=== PATIENT | female | born 1955 | race Caucasian/White ===

== ENCOUNTER → 2016-07-06 | Outpatient (REF) | payer OTHER ==
[2016-07-06 12:34] LABS: MEAN CORPUSCULAR HEMOGLOBIN 30.6 pg (27.0-33.0); MEAN CORPUSCULAR HGB CONC 32.7 g/dl (32.0-36.5); MEAN CORPUSCULAR VOLUME 93.5 fl (80.0-96.0); RED CELL DISTRIBUTION WIDTH 13.4 % (11.5-14.5); WHITE BLOOD COUNT 9.9 K/mm3 (4.0-10.0)
[2016-07-06 12:49] LABS: ALBUMIN 4.4 GM/DL (3.2-5.2); ALBUMIN/GLOBULIN RATIO 1.29 (1.00-1.93); ALKALINE PHOSPHATASE 97 U/L (45-117); ALT/SGPT 46 U/L (12-78); ANION GAP 9 MEQ/L (8-16); AST/SGOT 20 U/L (15-37); BILIRUBIN,TOTAL 0.4 MG/DL (0.2-1.0); BLOOD UREA NITROGEN 18 MG/DL (7-18); CALCIUM LEVEL 10.1 MG/DL (8.8-10.2); CARBON DIOXIDE LEVEL 31 MEQ/L (21-32); CHLORIDE LEVEL 101 MEQ/L (98-107); CHOLESTEROL LEVEL 189 MG/DL (<200); CREATININE FOR GFR 0.82 MG/DL (0.55-1.02); FREE T4 1.24 NG/DL (0.76-1.46); GLOMERULAR FILTRATION RATE > 60.0 (>45); GLUCOSE, FASTING 104 MG/DL (80-110); POTASSIUM SERUM 3.9 MEQ/L (3.5-5.1); SODIUM LEVEL 141 MEQ/L (136-145); TOTAL PROTEIN 7.8 GM/DL (6.4-8.2); TRIGLYCERIDES LEVEL 150 MG/DL (<150)
== END ==
LOC: M SFHCADAM 08:48
PROVIDERS: ATTEND Physician Assistant
DX: I25.10 Atherosclerotic heart disease of native coronary artery without angina pectoris (principal); I10 Essential (primary) hypertension; E78.4 Other hyperlipidemia; E55.9 Vitamin D deficiency, unspecified

== ENCOUNTER → 2016-07-20 | Outpatient (CLI) | payer BC, OTHER ==
--- NOTE | 2016-07-20 16:11 | REP ---
MRI LUMBAR SPINE WITHOUT CONTRAST: HISTORY: Back pain. Decreased signal intensity on T2-weighted images is present in the L1-2 through L4-5 intervertebral discs. The discs are decreased in height. These findings are consistent with disc degeneration. A diffuse disc bulge and small central disc extrusion are present at the L1-2 level. There is superior migration of disc material. There is minimal compression of the thecal sac. The L1 nerves exit the neural foramina without compression. A diffuse disc bulge is present at the L2-3 level. There is minimal compression of the thecal sac. There is hypertrophy of the ligamenta flava and posterior articulating facets. The L2 nerves exit the neural foramina without compression. A diffuse disc bulge is present at the L3-4 level. There is hypertrophy of the ligamenta flava and posterior articulating facets. These findings produce mild central canal stenosis. The L3 nerves exit the neural foramina without compression. A diffuse disc bulge is present at the L4-5 level. There is hypertrophy of the ligamenta flava and posterior articulating facets. These findings produce moderate central canal stenosis. The L4 nerves exit the neural foramina without compression. A diffuse disc bulge is present at the L5-S1 level. This abuts the S1 nerves. There is no thecal sac compression. There is hypertrophy of the posterior articulating facets. The L5 nerves exit the neural foramina without compression. The conus medullaris is normal in appearance terminating at the level of the L1 intervertebral disc. Normal signal intensity is present in the lumbar vertebral bodies. IMPRESSION: 1. Diffuse disc bulge and small central disc extrusion at the L1-2 level with minimal thecal sac compression. 2. Diffuse disc bulge at the L2-3 level with minimal thecal sac compression. 3. Mild central canal stenosis at the L3-4 level secondary to disc bulge, ligamentous and facet hypertrophy. 4. Moderate central canal stenosis at the L4-5 level secondary to disc bulge, ligamentous and facet hypertrophy. 5. Diffuse disc bulge at the L5-S1 level. This abuts the S1 nerves. Signed by Greyson Morales MD 07/20/2016 04:16 P
== END ==
LOC: M RAD 14:31
PROVIDERS: ATTEND Orthopaedic Surgery
DX: M54.5 Low back pain (principal); M48.06 Spinal stenosis, lumbar region

== ENCOUNTER → 2016-09-11 | Outpatient (CLI) | payer BC, OTHER ==
--- NOTE | 2016-09-11 12:15 | REP ---
Radionuclide bone scan: Comparison is a lumbar spine MRI dated 07/20/2016. Whole-body scanning is performed. Additionally lateral views of the calvarium are performed and oblique views of the ribs and pelvis are performed. There is no unusual calvarial uptake. There is no unusual uptake in the cervical spine or thoracic spine. There is focal increased uptake in the left pedicle of the fifth lumbar vertebra. Uptake in the lumbar spine is otherwise unremarkable. There is a degenerative pattern of uptake in the shoulders. There is no unusual uptake in the pelvis, hips or lower extremities. Impression: Focal increased uptake in the left pedicle of the L5 vertebra. Degenerative pattern of uptake in the shoulders. The study is performed with 20.1 mCi of technetium 99 labeled MDP. Signed by Jp Rosenthal MD 09/11/2016 12:06 P
== END ==
LOC: M RAD 09:13
PROVIDERS: ATTEND Orthopaedic Surgery
DX: M54.2 Cervicalgia (principal)

== ENCOUNTER → 2017-04-02 | Outpatient (CLI) | payer BC, OTHER ==
--- NOTE | 2017-04-02 10:50 | REP ---
Low-dose lung screening chest CT: The studies performed without IV contrast images are presented at lung windowing. There are no nodules or masses. There are no infiltrates or effusions. Impression: Category one low-dose lung screening CT. Probability of malignancy is less than 1%. Continue annual screening low-dose chest CT. Signed by Jp Rosenthal MD 04/02/2017 10:42 A
== END ==
LOC: M RAD 09:17
PROVIDERS: ATTEND Physician Assistant
DX: F17.200 Nicotine dependence, unspecified, uncomplicated (principal); Z12.2 Encounter for screening for malignant neoplasm of respiratory organs

== ENCOUNTER → 2018-03-14 | Outpatient (REF) | payer OTHER ==
[2018-03-14 12:42] LABS: HEMATOCRIT 45.2 % (36.0-47.0); MEAN CORPUSCULAR HEMOGLOBIN 30.1 pg (27.0-33.0); MEAN CORPUSCULAR HGB CONC 33.2 g/dl (32.0-36.5); MEAN CORPUSCULAR VOLUME 90.8 fl (80.0-96.0); PLATELET COUNT, AUTOMATED 277 10^3/uL (150-450); RED BLOOD COUNT 4.98 10^6/uL (4.00-5.40); RED CELL DISTRIBUTION WIDTH 14.1 % (11.5-14.5); WHITE BLOOD COUNT 8.1 10^3/uL (4.0-10.0)
[2018-03-14 13:02] LABS: ALBUMIN/GLOBULIN RATIO 1.14 (1.00-1.93); ALKALINE PHOSPHATASE 122 U/L (45-117); ALT/SGPT 46 U/L (12-78); ANION GAP 10 MEQ/L (8-16); AST/SGOT 22 U/L (7-37); BILIRUBIN,TOTAL 0.4 MG/DL (0.2-1.0); BLOOD UREA NITROGEN 14 MG/DL (7-18); CALCIUM LEVEL 9.9 MG/DL (8.8-10.2); CARBON DIOXIDE LEVEL 26 MEQ/L (21-32); CHLORIDE LEVEL 103 MEQ/L (98-107); CHOLESTEROL LEVEL 170 MG/DL (<200); CREATININE FOR GFR 0.92 MG/DL (0.55-1.30); FREE T4 1.24 NG/DL (0.76-1.46); GLOMERULAR FILTRATION RATE > 60.0 (>45); GLUCOSE, FASTING 108 MG/DL (70-100); HDL CHOLESTEROL 34 MG/DL (>40); LDL CHOLESTEROL 91 MG/DL (<100); NON-HDL-C 136 MG/DL; POTASSIUM SERUM 3.7 MEQ/L (3.5-5.1); SODIUM LEVEL 139 MEQ/L (136-145); TOTAL PROTEIN 7.5 GM/DL (6.4-8.2); TRIGLYCERIDES LEVEL 226 MG/DL (<150)
[2018-03-14 15:01] LABS: FOLATE 13.4 NG/ML; TOTAL 25(OH) VITAMIN D 76.3 NG/ML (30.0-100.0)
== END ==
LOC: M SFHCADAM 08:27
DX: I25.10 Atherosclerotic heart disease of native coronary artery without angina pectoris (principal); I10 Essential (primary) hypertension; E78.49 Other hyperlipidemia; M54.42 Lumbago with sciatica, left side

== ENCOUNTER → 2018-09-24 | Outpatient (REF) | payer OTHER ==
[2018-09-24 12:32] LABS: HEMATOCRIT 44.6 % (36.0-47.0); HEMOGLOBIN 14.8 g/dl (12.0-15.5); MEAN CORPUSCULAR HEMOGLOBIN 30.1 pg (27.0-33.0); MEAN CORPUSCULAR HGB CONC 33.2 g/dl (32.0-36.5); MEAN CORPUSCULAR VOLUME 90.7 fl (80.0-96.0); PLATELET COUNT, AUTOMATED 270 10^3/uL (150-450); RED BLOOD COUNT 4.92 10^6/uL (4.00-5.40)
[2018-09-24 13:04] LABS: ALBUMIN 4.3 GM/DL (3.2-5.2); ALT/SGPT 24 U/L (12-78); BILIRUBIN,TOTAL 0.6 MG/DL (0.2-1.0); BLOOD UREA NITROGEN 17 MG/DL (7-18); CARBON DIOXIDE LEVEL 30 MEQ/L (21-32); CHLORIDE LEVEL 101 MEQ/L (98-107); CREATININE FOR GFR 0.87 MG/DL (0.55-1.30); GLOMERULAR FILTRATION RATE > 60.0 (>45); GLUCOSE, FASTING 110 MG/DL (70-100); POTASSIUM SERUM 3.6 MEQ/L (3.5-5.1); SODIUM LEVEL 138 MEQ/L (136-145); TOTAL PROTEIN 7.6 GM/DL (6.4-8.2)
== END ==
LOC: M SFHCADAM 08:29
PROVIDERS: ATTEND Physician Assistant
DX: Z12.11 Encounter for screening for malignant neoplasm of colon (principal); R00.2 Palpitations

== ENCOUNTER → 2019-08-18 | Outpatient (REF) | payer MEDICARE, BC, OTHER ==
[2019-08-18 13:15] LABS: HEMATOCRIT 39.7 % (36.0-47.0); HEMOGLOBIN 12.6 g/dl (12.0-15.5); MEAN CORPUSCULAR HEMOGLOBIN 28.3 pg (27.0-33.0); MEAN CORPUSCULAR HGB CONC 31.7 g/dl (32.0-36.5); MEAN CORPUSCULAR VOLUME 89.2 fl (80.0-96.0); PLATELET COUNT, AUTOMATED 284 10^3/uL (150-450); RED BLOOD COUNT 4.45 10^6/uL (4.00-5.40)
[2019-08-18 13:35] LABS: ALBUMIN 3.9 GM/DL (3.2-5.2); ALT/SGPT 27 U/L (12-78); BILIRUBIN,TOTAL 0.5 MG/DL (0.2-1.0); BLOOD UREA NITROGEN 14 MG/DL (7-18); CALCIUM LEVEL 9.7 MG/DL (8.8-10.2); CARBON DIOXIDE LEVEL 30 MEQ/L (21-32); CHLORIDE LEVEL 104 MEQ/L (98-107); CHOLESTEROL LEVEL 140 MG/DL (<200); CHOLESTEROL RISK RATIO 2.641 (<5); CREATININE FOR GFR 0.73 MG/DL (0.55-1.30); FREE T4 1.21 NG/DL (0.76-1.46); GLOMERULAR FILTRATION RATE > 60.0 (>45); GLUCOSE, FASTING 92 MG/DL (70-100); HDL CHOLESTEROL 53 MG/DL (>40); LDL CHOLESTEROL 71 MG/DL (<100); NON-HDL-C 87 MG/DL; POTASSIUM SERUM 4.2 MEQ/L (3.5-5.1); SODIUM LEVEL 138 MEQ/L (136-145); TOTAL PROTEIN 7.4 GM/DL (6.4-8.2); TRIGLYCERIDES LEVEL 80 MG/DL (<150)
== END ==
LOC: M SFHCADAM 10:01
PROVIDERS: ATTEND Physician Assistant
DX: I25.10 Atherosclerotic heart disease of native coronary artery without angina pectoris (principal); I10 Essential (primary) hypertension; F17.210 Nicotine dependence, cigarettes, uncomplicated; Z23 Encounter for immunization
CPT/HCPCS: 80053; 80061; 84439; 84443; 85027; 90670; 90682; 99406; G0008; G0009; G0402; G0463

== ENCOUNTER → 2020-05-18 | Outpatient (CLI) | payer MEDICARE, BC, OTHER ==
--- NOTE | 2020-05-18 14:51 | REP ---
INDICATION: NICOTINE DEPEND. COMPARISON: Comparison screening low-dose chest CT April 02, 2017.. TECHNIQUE: Contiguous 3 mm lung window only axial images. FINDINGS: There are calcifications in the region of the aortic valve. Question aortic sclerosis. Some mitral annular calcifications also noted. The ascending aorta measures 4.4 cm in AP dimension at the level of the right main pulmonary artery. There is no evidence of pulmonary nodule or mass lesion. There are fibrotic changes again noted in the right middle lobe and lingula at the bases. No infiltrate is seen. Some minimal linear fibrotic changes are seen in the lower lobes. IMPRESSION: Stable lung RADS category 1 findings. Repeat screening low-dose chest CT suggested in 1 year. Incidental note is made of calcifications in the area of the aortic valve. Rule out aortic sclerosis or stenoses. The ascending aorta is somewhat dilated as well as above. <Electronically signed by Asad Newsome > 05/18/20 [id number]
== END ==
LOC: M RAD 10:13
PROVIDERS: ATTEND Physician Assistant
DX: F17.210 Nicotine dependence, cigarettes, uncomplicated (principal)

== ENCOUNTER → 2020-09-15 | Outpatient (REF) | payer MEDICARE, OTHER ==
[~2020-09-15] MED LIST: AMLO25TA PO; ASPI81CH33 PO; BUPR150T12 PO; CHLO25TA PO; FAMO20TA PO; FAMO40TA3 PO; FERR325T3 PO; KLOR20TA42 PO; LOSA100T50 PO; ROSU40TA4 PO; [UNRECOGNIZED DRUG - CODE] PO
[2020-09-15 17:33] LABS: BASO # 0.1 10^3/uL (0.0-0.2); BASO % 0.8 % (0.0-1.0); EOS # 0.2 10^3/uL (0.0-0.5); EOS % 1.3 % (0.0-3.0); HEMATOCRIT 24.9 % (36.0-47.0); HEMOGLOBIN 7.4 g/dl (12.0-15.5); LYMPH # 2.2 10^3/uL (1.5-5.0); LYMPH % 19.4 % (24.0-44.0); MEAN CORPUSCULAR HEMOGLOBIN 25.2 pg (27.0-33.0); MEAN CORPUSCULAR HGB CONC 29.7 g/dl (32.0-36.5); MEAN CORPUSCULAR VOLUME 84.7 fl (80.0-96.0); MONO # 0.6 10^3/uL (0.0-0.8); MONO % 5.6 % (2.0-8.0); NEUTROPHILS # 8.1 10^3/uL (1.5-8.5); NEUTROPHILS % 72.5 % (36.0-66.0); PLATELET COUNT, AUTOMATED 315 10^3/uL (150-450); RED BLOOD COUNT 2.94 10^6/uL (4.00-5.40); WHITE BLOOD COUNT 11.1 10^3/uL (4.0-10.0)
[2020-09-15 17:40] LABS: ALBUMIN 4.1 GM/DL (3.2-5.2); ALT/SGPT 23 U/L (12-78); BILIRUBIN,TOTAL 0.5 MG/DL (0.2-1.0); BLOOD UREA NITROGEN 24 MG/DL (7-18); CALCIUM LEVEL 9.6 MG/DL (8.8-10.2); CARBON DIOXIDE LEVEL 29 MEQ/L (21-32); CHLORIDE LEVEL 98 MEQ/L (98-107); CREATININE FOR GFR 0.86 MG/DL (0.55-1.30); FOLATE 9.5 NG/ML; FREE T4 1.17 NG/DL (0.76-1.46); GLOMERULAR FILTRATION RATE > 60.0 (>45); GLUCOSE, FASTING 109 MG/DL (70-100); MAGNESIUM LEVEL 2.3 MG/DL (1.8-2.4); POTASSIUM SERUM 3.1 MEQ/L (3.5-5.1); SODIUM LEVEL 136 MEQ/L (136-145); TOTAL 25(OH) VITAMIN D 79.4 NG/ML (30.0-100.0); TOTAL PROTEIN 7.5 GM/DL (6.4-8.2); VITAMIN B12 LEVEL 399 PG/ML
== END ==
LOC: M SFHCADAM 12:51
PROVIDERS: ATTEND Physician Assistant
DX: M54.2 Cervicalgia (principal); M54.16 Radiculopathy, lumbar region; R42 Dizziness and giddiness; I73.9 Peripheral vascular disease, unspecified; I10 Essential (primary) hypertension; I25.10 Atherosclerotic heart disease of native coronary artery without angina pectoris; Z79.899 Other long term (current) drug therapy
CPT/HCPCS: 80053; 82306; 82607; 82746; 83735; 84439; 84443; 85025; G0463

== ENCOUNTER → 2020-09-15 | Outpatient (REF) | payer MEDICARE, OTHER ==
[2020-09-15 18:02] LABS: BLOOD UREA NITROGEN 25 MG/DL (7-18); CALCIUM LEVEL 9.4 MG/DL (8.8-10.2); CARBON DIOXIDE LEVEL 30 MEQ/L (21-32); CHLORIDE LEVEL 99 MEQ/L (98-107); CREATININE FOR GFR 0.83 MG/DL (0.55-1.30); FREE T4 1.14 NG/DL (0.76-1.46); GLOMERULAR FILTRATION RATE > 60.0 (>45); GLUCOSE, FASTING 109 MG/DL (70-100); MAGNESIUM LEVEL 2.2 MG/DL (1.8-2.4); POTASSIUM SERUM 3.1 MEQ/L (3.5-5.1); SODIUM LEVEL 136 MEQ/L (136-145)
== END ==
LOC: M LABDRWAD 16:27
PROVIDERS: ATTEND Physician Assistant
DX: R00.2 Palpitations (principal); I10 Essential (primary) hypertension

== ENCOUNTER 2020-09-20 17:14 | Inpatient (IN) | payer MEDICARE, BC, OTHER ==
[2020-09-20] VITALS (10 sets, daily range): BP systolic 78–115; BP diastolic 48–67; O2SAT 98
[~2020-09-20] VITALS: Ht 162.6 cm; Wt 87.3 kg
[2020-09-20] MEDS ORDERED: LOSA100T50 PO (17:26)
[2020-09-20] MEDS ORDERED: CHLO25TA PO (17:26)
[2020-09-20] MEDS ORDERED: ASPI81CH33 PO (17:26)
[2020-09-20] MEDS ORDERED: ROSU40TA4 PO (17:26)
[2020-09-20] MEDS ORDERED: FAMO20TA PO (17:26)
[2020-09-20] MEDS ORDERED: AMLO25TA PO (17:26)
[2020-09-20] MEDS ORDERED: BUPR150T12 PO (17:26)
[2020-09-20] MEDS ORDERED: KLOR20TA42 PO (17:26)
[2020-09-20 18:04] LABS: MEAN CORPUSCULAR HEMOGLOBIN 24.8 pg (27.0-33.0); MEAN CORPUSCULAR VOLUME 82.7 fl (80.0-96.0); PLATELET COUNT, AUTOMATED 315 10^3/uL (150-450); RED BLOOD COUNT 2.66 10^6/uL (4.00-5.40); WHITE BLOOD COUNT 13.1 10^3/uL (4.0-10.0)
[2020-09-20 18:22] LABS: ALBUMIN 3.8 GM/DL (3.2-5.2); ALT/SGPT 21 U/L (12-78); BILIRUBIN,TOTAL 0.5 MG/DL (0.2-1.0); BLOOD UREA NITROGEN 21 MG/DL (7-18); CALCIUM LEVEL 9.4 MG/DL (8.8-10.2); CARBON DIOXIDE LEVEL 27 MEQ/L (21-32); CHLORIDE LEVEL 100 MEQ/L (98-107); CREATININE FOR GFR 0.85 MG/DL (0.55-1.30); FERRITIN 5 NG/ML (8-252); GLOMERULAR FILTRATION RATE > 60.0 (>45); GLUCOSE, FASTING 102 MG/DL (70-100); IRON (FE) 22 UG/DL (50-170); PERCENT SATURATION 4.2 % (13.2-45.0); POTASSIUM SERUM 4.2 MEQ/L (3.5-5.1); SODIUM LEVEL 134 MEQ/L (136-145); TOTAL IRON BINDING CAPACITY 522 UG/DL (250-450); TOTAL PROTEIN 7.3 GM/DL (6.4-8.2)
[2020-09-20 18:24] LABS: HEMOGLOBIN 6.6 g/dl (12.0-15.5)
[2020-09-20] MEDS ORDERED: NS 500 ML IV ONE (19:10)
[2020-09-20] MEDS ORDERED: [UNRECOGNIZED DRUG - CODE] PO (20:24)
[2020-09-20] MEDS ORDERED: FAMO40TA3 PO (20:24)
[2020-09-20] MEDS ORDERED: IRON SUCROSE 100MG 5ML VIAL (J1756 PER 1MG) IV SCH (20:30)
[2020-09-20] MEDS ORDERED: ONDANSETRON 4MG/2ML VIAL IV PRN (20:30)
--- NOTE | 2020-09-20 20:33 | IPNPDOC ---
Text Note Date of Service The patient was seen on 09/20/20. VS,Bobbone, I+O VS, Fishbone, I+O Laboratory Tests 09/20/20 17:42 Vital Signs Date Time Temp Pulse Resp B/P (MAP) Pulse Ox O2 Delivery O2 Flow Rate FiO2 09/20/20 19:00 90 20 83/55 (64) 97 Room Air 09/20/20 17:15 97.7 SLADE CH MD Sep 20, 2020 20:33
--- NOTE | 2020-09-20 20:49 | REPVR ---
PROCEDURE INFORMATION: Exam: XR Chest Exam date and time: 09/20/2020 8:26 PM Age: 64 years old Clinical indication: Shortness of breath; Additional info: Anemia/sob TECHNIQUE: Imaging protocol: XR of the chest. Views: 1 view. COMPARISON: LOW DOSE LUNG SCREENING CT 05/18/2020 10:43 AM FINDINGS: Lungs: Platelike atelectasis left lower lobe. Remaining lungs are clear. Pleural spaces: Unremarkable. No pleural effusion. No pneumothorax. Heart/Mediastinum: Unremarkable. No cardiomegaly. Bones/joints: Unremarkable. IMPRESSION: No acute findings. Electronically signed by: Earl Zimmerman On 09/20/2020 20:49:54 PM
[2020-09-20 20:54] LABS: TROPONIN I 0.06 NG/ML (< 0.10)
--- NOTE | 2020-09-20 21:23 | HPEPDOC ---
[facility] Medical History & Physical Date of Admission Sep 20, 2020 Date of Service: Sep 20, 2020 Primary Care Physician: RAMEZ PALACIOS PA-C Other Provider ROMAN Mckenzie cardiology (through Dr. Zelaya) - - as outpatient Attending Physician: SLADE CH MD History and Physical CHIEF COMPLAINT: shortness of breath HISTORY OF PRESENT ILLNESS: is a pleasant 64yo female who presented to the [facility] ED with chief complaints of shortness of breath with exertion and generalized weakness. Her symptoms actually began 2 months ago after she received the first moderna vaccination on July 18. The next day, July 19, she developed palpitations and dizziness which would occur 2-3 times a day and worsen whenever she stood up or moved. On July 25, she began to have left upper extremity swelling with redness that she describes as "Covid arm." She was seen by her cardiology PA on 07/27 and had an EKG which was normal. Around this time, her dizziness and palpitations sxs began to wane somewhat. She received her second Covid vaccine on 08/15, and subsequently developed fever, chills and muscle aches beginning the next day. At this point, her dizziness and palpitations returned and she began to also have associated shortness of breath with exertion. She has not had any palpitations over the past 5 days, but continues to experience dyspnea on exertion and has had progressively worsening weakness. She was seen by her primary care provider last (09/15), and which point a CBC was ordered. 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 She was started on 20 mEq twice a day of oral potassium chloride. She was then called today by her PCP to inform her that her hemoglobin from last week's lab was 7.4 and to present to the emergency department. REVIEW OF SYSTEMS: CONSTITUTIONAL: Reports increasing generalized weakness over the past one2 week s. Denies fever, chills, night sweats, or unintentional change in weight. CARDIOVASCULAR: Has not experience any heart palpitations in the last 6 days. Denies any chest pain at this time, chest pressure. RESPIRATORY: Reports shortness of breath on exertion that has been present for the past month. She also reports some orthopnea. Denies blurry chest pain or sniffing and cough. GASTROINTESTINAL: Denies abdominal pain, nausea, vomiting, diarrhea, constipation, or blood in stool. GENITOURINARY: Denies dysuria, hematuria. NEUROLOGICAL: Reports dizziness that was consistent a month ago but has now become more intermittent and associated with movement. ENDOCRINE: Reports cold intolerance HEMATOLOGIC: Denies easy bleeding or bruising LYMPHATIC: Denies any new lumps or bumps PAST MEDICAL/SURGICAL HISTORY: Coronary artery disease s/p inferior wall TX at 48 years old (November 2003) with PCI for 95% Rt coronary artery stenosis s/p CAT (Dr. 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 Kerr of pain management with initial visit scheduled for 09/21/20); this was complicated by a 2004 fall Atherosclerosis; described as prominent abdominal aorta atherosclerosis per ou tpatient records Aortic stenosis, moderate (per 11/2018 echo) Left subclavian steal syndrome, per Neck MRA 2013 Vitamin D deficiency Migraine headaches Exploratory laparotomy for endometriosis, 1992 PCI with drug-eluting stent placement due to 95% stenosis of right carotid artery, November 2003 SOCIAL HISTORY: Active smoker, 25.5 pack year hx. Patient is and lives in [place], [place] with her , Rogelio. She has 6 biological children and 4 stepchildren. She is retired and formerly worked for a [employer]. She is an active smoker, having smoked cigarettes since the age of 14, averaging one half pack per day; equates to 25.5 pack-year history She consumes alcohol on a very rare, and social basis (i.e., occasional glass of wine, beer, liquor once every few months) She denies any current or former illicit/IV drug use. FAMILY HISTORY: Father: at 72 years old; [place] at 50 years old, Diabetes Mother: Living as of one year ago (currently 8889 yo); Hypertension ALLERGIES: Please see below. HOME MEDICATIONS: Please see below. PHYSICAL EXAMINATION: VITAL SIGNS: Please see below. GENERAL APPEARANCE: Pleasant , moderately obese pale-appearing female lying upright in bed. Appears slightly older than stated age., Somewhat anxious, at times during exam. Alert and oriented 3. Accompanied by her . Actively undergoing blood transfusion. HEENT: Facial pallor. Normocephalic, atraumatic. Noninjected, anicteric sclera. Mild conjunctival pallor. PERRLA. ORAL CAVITY: Upper and lower dentures in place. MMM with no appreciated for initial erythema or exudate. NECK: Supple, wide neck. No lymphadenopathy appreciated. Trachea midline. CARDIOVASCULAR: Borderline tachycardic, regular rhythm. 2/6 systolic murmur appreciated most at right 2nd intercostal space. Cap refill 23s. LUNGS: Mildly decreased tidal volume bilaterally with bibasilar mild inspiratory crackles. Symmetric chest expansion. Breathing room air. Speaking full sentences. ABDOMEN: Soft, nontender, nondistended. Obese. Normoactive bowel sounds throughout. No hepatosplenomegaly appreciated, yet accuracy limited by habitus. No rigidity. EXTREMITIES: Fainter radial pulses bilaterally. NEUROLOGICAL: Alert and oriented 3. No focal deficits appreciated. Nondistended speech. PSYCHIATRIC: Anxious appearing at times during the exam, otherwise, pleasant mood and affect appears appropriate. LABORATORY DATA: Please see below. IMAGING: Portable/1-view Chest Xray, 09/20/20-IMPRESSION: No acute findings. MICROBIOLOGY: Please see below. ASSESSMENT & PLAN: is a 64 yr old w a PMHx CAD w/ prior TX and s/p PCI and CAT complicated by NSVT/hypotension/bradycardia, moderate aortic stenosis, htn, hld, atherosclerosis, and active 25+ pack-yr smoker, who presented to the [facility] with the chief complaints of shortness of breath with exertion and generalized weakness and will be admitted for management of symptomatic anemia. #Symptomatic iron deficiency anemia -09/15/20 outpatient Hgb 7.4, with Hgb 6.4/Hct 22 in ED today upon presentation -due to CAD hx, threshold to transfuse is Hgb < 8; type and screen ordered and consent for blood obtained; 1 unit PRBCs ordered and transfused in ED w/ another 3 units to follow -patient has never had a colonoscopy nor egd performed per pt and upon review of [facility] records -stool occult ordered -Patient denied any recent blood in the stool or hematemesis; she is post- menopausal and denied any recent AUB. -Patient has no dietary habits that would put her at risk of being Fe-deficient -Fe panel ordered in ED: sFe 22, TIBC 522, Ferritin 5, Transferrin sat % 4.2 -Recommend pursuing colonoscopy as part of work-up. Spoke to patient about like ly scope and she expressed trepidation re bowel prep. Collaboratively discussed the medical benefits and information a scope would offer and she seemed in agreement to pursue. -fall risk precautions & assisted ambulation only orders -IV protonix and zofran -orthostatic vitals ordered #History of hypertension -Patient is consistently been hypotensive since ED presentation and through admission -home anti-hypertensive medications not continued initially on admission in the setting of her hypotension -She received 1 unit of PRBCs in the ED, with a plan for 3 more to be infused; her pressures improved slightly as she was completing the first unit and moving into the second. #CAD w/ h/o [place] s/p PCI and CAT -Home qd 81 aspirin not continued upon admission in the setting of critical hemoglobin of 6.4 with possible active bleeding -Due to CAD history, hemoglobin level to transfuse is below 8 -on telemetry #Hyperlipidemia -Home rosuvastatin continued -2014 echo showed prominent atherosclerosis of the abdominal aorta #Active smoker -has smoked roughly 1/2 ppd for past 51 years (25.5 pack year hx) -pt initially declined nicotine patch upon admission #Presumed h/o depression -home buproprion continued; the Wellbutrin may be also used to decrease patient's nicotine dependence #Obesity -BMI 32.2 -Complicates care, most especially due to increasing endemic inflammation within the body which is worsened by inflammation associated with smoking -A1c ordered #DVT prophylaxis: Teds and sequentials; anticoagulation pharmacotherapy deferred in the setting of critical leave low hemoglobin and possibly active bleeding Code status: Full code Disposition: home after more than 2 midnight's stay Vital Signs Vital Signs Date Time Temp Pulse Resp B/P (MAP) Pulse Ox O2 Delivery O2 Flow Rate FiO2 09/20/20 20:57 97.9 93 18 83/58 98 Room Air Laboratory Data Labs 24H Laboratory Tests 2 09/20/20 17:42: Reticulocyte # (auto) 91.9H, Nucleated Red Blood Cells % (auto) 0.0, Percent Reticulocyte Count 3.3H, Reticulocyte Hemoglobin Equivalent 19.6L, Anion Gap 7L, Glomerular Filtration Rate > 60.0, Calcium Level 9.4, Iron Level 22L, Total Iron Binding Capacity 522H, Transferrin % Saturation 4.2L, Ferritin 5L, Total Bilirubin 0.5, Aspartate Amino Transf (AST/SGOT) 15, Alanine Aminotransferase (ALT/SGPT) 21, Alkaline Phosphatase 95, Troponin I 0.06, Total Protein 7.3, Albumin 3.8, Albumin/Globulin Ratio 1.1L CBC/BMP Laboratory Tests 09/20/20 17:42 Microbiology Microbiology 09/20/20 Respiratory Virus Panel (PCR) ([facility]), Received Pending Home Medications Scheduled Aspirin (Aspirin) 81 Mg Tab.chew, 81 MG PO QHS Bupropion Hcl (Bupropion Xl) 150 Mg Tab.er.24h, 150 MG PO DAILY Famotidine (Famotidine) 40 Mg Tablet, 20 MG PO BID Ferrous Sulfate (Ferrous Sulfate) 325 Mg Tablet.dr, 1 TAB PO DAILY Potassium Chloride (Klor-Con M20) 20 Meq Tab.er.prt, 20 MEQ PO BID Rosuvastatin Calcium (Rosuvastatin Calcium) 40 Mg Tablet, 40 MG PO DAILY Scheduled PRN D-Methorphan/PE/Acetaminophen (Vicks Dayquil Liquicaps) 1 Each Capsule, 2 CAP PO DAILY PRN for COLD SYMPTOMS Allergies Coded Allergies: Sulfa (Sulfonamide Antibiotics) (Verified Allergy, Unknown, 09/20/20) A-FIB/CHADSVASC A-FIB History Current/History of A-Fib/PAF?: No Current PO Anticoag Therapy: No GME ATTESTATION GME ATTESTATION My faculty preceptor for this patient encounter was physically present during the encounter and was fully available. All aspects of the patient interview, examination, medical decision making process, and medical care plan development were reviewed and approved by the faculty preceptor. The faculty preceptor is aware and concurs with the plan as stated in the body of this note and will attest to such by his/her cosignature. ATTENDING NOTE TIME OF SERVICE 805PM is a 64 yr old smoker w a hx of HTN, HFpEF, CAD/hx of inferior TX w placement of CAT in RCA in 2003, Bradycardia, DLP, Migraines, OA, class 1 obesity & L subclavian steel syndrome who has been having palpitations, weakness, dizziness, & generalized palor; she recently had blood work done which showed a Hg of 7.4 therefore her PCP instructed her to come to the ER for evaluation. According her one of the providers performed a stool occult which was positive. - will defer Gen Surg consult for scope to the day time team Rest per H&P MYKE SHETTY D.O. Sep 20, 2020 21:23 SLADE CH MD Sep 21, 2020 03:42
[2020-09-20] MEDS ORDERED: IRON SUCROSE 100 MG in NS 100 ML OVER 1 HR IV SCH (22:00)
[2020-09-20] MEDS ORDERED: NS 1,000 ML IV SCH (22:40)
[2020-09-20] MEDS ORDERED: MOM 30ML SUSPENSION UDC PO PRN (22:45)
[2020-09-20] MEDS ORDERED: MAALOX 30 ML SUSP *UDC PO PRN (22:45)
[2020-09-21] VITALS (14 sets, daily range): BP systolic 81–126; BP diastolic 50–72
[2020-09-21] MEDS: ACETAMINOPHEN TAB 650MG DOSE (2X325MG) PO PRN ×2 (00:13→13:38)
[2020-09-21] MEDS ORDERED: diphenhydrAMINE 25MG CAP PO ONE (00:55)
--- NOTE | 2020-09-21 01:29 | IPNPDOC ---
Text Note Date of Service The patient was seen on 09/21/20. NOTE I was informed by the patient's RN that the patient was c/o a rash and leg cr amps and then developed hives on her neck about 95 min after receiving Venofer. She had just finished receiving her 2nd unit of PRBCs. At the time of my assessment the patient reported feeling "great" and having more energy. She denies feeling short of breath and reports that her dyspnea with exertion has resolved. VITALS HR 89 / RR T / 97.8 / BP 98/52 GEN: seated up in chair HEENT: no tounge or lip swelling RESP: lungs CTAB on RA INTEGUMENT: red hives on the anterior & posterior neck / IVs at right hand is patent #Possible allergy to Venofer I doubt this is a transfusion reaction because she doesn't have a fever, chills or respiratory distress. She doesn't have mucosal edema or [place] bleeding from her mouth or IV site. Plan: repeat Hg now, if it is >8 we will hold off additional PRBCs until the morning / if it is < 8 will continue with PRBCs / will dc Venofer VS,Fishbone, I+O VS, Fishbone, I+O Laboratory Tests 09/20/20 17:42 Vital Signs Date Time Temp Pulse Resp B/P (MAP) Pulse Ox O2 Delivery O2 Flow Rate FiO2 09/21/20 01:00 97.8 89 18 98/59 (72) 98 Room Air I&O- Last 24 Hours up to 6 AM 09/21/20 06:00 Intake Total 1300 ml Balance 1300 ml SLADE CH MD Sep 21, 2020 01:29
[2020-09-21 01:31] LABS: HEMATOCRIT 29.3 % (36.0-47.0)
[2020-09-21] MEDS: PANTOPRAZOLE 40MG VIAL (C9113 PER 1) IV SCH ×2 (03:30→13:39)
[2020-09-21 06:04] LABS: HEMATOCRIT 28.7 % (36.0-47.0); HEMOGLOBIN 8.9 g/dl (12.0-15.5); MEAN CORPUSCULAR HEMOGLOBIN 26.5 pg (27.0-33.0); MEAN CORPUSCULAR VOLUME 85.4 fl (80.0-96.0); PLATELET COUNT, AUTOMATED 233 10^3/uL (150-450); RED BLOOD COUNT 3.36 10^6/uL (4.00-5.40); WHITE BLOOD COUNT 7.8 10^3/uL (4.0-10.0)
[2020-09-21 06:32] LABS: ALBUMIN 3.6 GM/DL (3.2-5.2); ALT/SGPT 17 U/L (12-78); BILIRUBIN,TOTAL 0.7 MG/DL (0.2-1.0); BLOOD UREA NITROGEN 16 MG/DL (7-18); CALCIUM LEVEL 9.5 MG/DL (8.8-10.2); CARBON DIOXIDE LEVEL 25 MEQ/L (21-32); CHLORIDE LEVEL 103 MEQ/L (98-107); CREATININE FOR GFR 0.72 MG/DL (0.55-1.30); GLOMERULAR FILTRATION RATE > 60.0 (>45); GLUCOSE, FASTING 98 MG/DL (70-100); POTASSIUM SERUM 3.6 MEQ/L (3.5-5.1); SODIUM LEVEL 135 MEQ/L (136-145); TOTAL PROTEIN 6.8 GM/DL (6.4-8.2)
[2020-09-21 07:18] LABS: HEMOGLOBIN A1c 5.7 %
--- NOTE | 2020-09-21 08:03 | ECGEPIP ---
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
[2020-09-21] MEDS: ROSUVASTATIN 10 MG TAB (CRESTOR) PO SCH (10:35)
[2020-09-21] MEDS: buPROPion **XL** TABLET 150MG (WELLBUTRIN XL) PO SCH (10:35)
--- NOTE | 2020-09-21 13:02 | IPNPDOC ---
Text Note Date of Service The patient was seen on 09/21/20. NOTE SUBJECTIVE: -Feels so much better this morning -Finally consents to getting a colonoscopy. Has declined in the past but after our lengthy discussion, she is agreeable. Spoke with Dr. Hess, and after speaking with her again, will recommend pursuing this inpatient because I worry that she may not comply with outpatient colonoscopy plan. VITAL SIGNS: Please see below. GENERAL APPEARANCE: Obese, NAD, sitting up in chair HEENT: Normocephalic, atraumatic. Noninjected, anicteric sclera. Mild conjunctival pallor. PERRLA. ORAL CAVITY: Upper and lower dentures in place. MMM NECK: Supple. No lymphadenopathy appreciated. Trachea midline. CARDIOVASCULAR: 2/6 systolic murmur appreciated most at right 2nd intercostal space. Otherwise RRR LUNGS: Continues to have bibasilar mild inspiratory crackles. Symmetric chest expansion. Breathing room air. Speaking full sentences. ABDOMEN: Soft, nontender, nondistended. Obese. Normoactive bowel sounds throughout. EXTREMITIES: WWP, no edema NEUROLOGICAL: Alert and oriented 3. No focal deficits appreciated. PSYCHIATRIC: AOx3 LABORATORY DATA: Reviewed Hgb now 8.9 WBC 7.8 Cr 0.72 IMAGING: Portable/1-view Chest Xray, 09/20/20 IMPRESSION: No acute findings. MICROBIOLOGY: Please see below. ASSESSMENT & PLAN: This is a 64yo female w/ notable h/o #Symptomatic iron deficiency anemia -09/15/20 outpatient Hgb 7.4, with Hgb 6.4/Hct 22 in ED at presentation -due to CAD hx, threshold to transfuse is Hgb < 8; s/p 2u pRBCs -patient has never had a colonoscopy nor egd performed per pt and upon review of [facility] records --> consulted gen surg, Dr. Hess will see her as she is now agreeable to having a colonoscopy -Fe panel ordered in ED: sFe 22, TIBC 522, Ferritin 5, Transferrin sat % 4.2 -IV protonix BID and zofran PRN #Hypotension -Holding home anti-hypertensive medications, s/p blood and fluids and now normotensive. #CAD w/ h/o [place] s/p PCI and CAT -ASA 81 was held admission in the setting of critical hemoglobin of 6.4, will restart -Due to CAD history, hemoglobin level to transfuse is below 8 #Hyperlipidemia -Home rosuvastatin continued -2014 echo showed prominent atherosclerosis of the abdominal aorta #Active smoker -has smoked roughly 1/2 ppd for past 51 years (25.5 pack year hx) -pt declined nicotine patch #Presumed h/o depression -home buproprion continued; the Wellbutrin may be also used to decrease patient's nicotine dependence #Obesity -BMI 32.2 -Complicates care, most especially due to increasing endemic inflammation within the body which is worsened by inflammation associated with smoking -A1c ordered #DVT prophylaxis: Teds and sequentials Code status: Full code Disposition: Medsurg VS,Fishbone, I+O VS, Fishbone, I+O Laboratory Tests 09/20/20 17:42 09/21/20 01:24 09/21/20 05:17 Vital Signs Date Time Temp Pulse Resp B/P (MAP) Pulse Ox O2 Delivery O2 Flow Rate FiO2 09/21/20 07:53 97.9 83 18 113/58 (76) 97 Room Air I&O- Last 24 Hours up to 6 AM 09/21/20 06:00 Intake Total 3055 ml Output Total 1550 ml Balance 1505 ml GIANNA WONG MD Sep 21, 2020 13:02
[2020-09-21] MEDS ORDERED: MOM 30ML SUSPENSION UDC PO ONE (13:20)
[2020-09-21] MEDS ORDERED: MAGNESIUM CITRATE 300 ML BTL PO ONE (13:25)
[2020-09-21] MEDS: SENNA 8.6 MG TAB (SENOKOT) PO SCH ×2 (13:38→20:32)
[2020-09-21] MEDS: DOCUSATE SODIUM 100MG CAPSULE PO SCH ×2 (13:39→20:33)
[2020-09-21 15:05] LABS: HEMATOCRIT 30.9 % (36.0-47.0); HEMOGLOBIN 9.5 g/dl (12.0-15.5)
--- NOTE | 2020-09-21 21:14 | CR ---
CONSULTATION DATE: 09/21/2020 REASON FOR CONSULTATION: Anemia. HISTORY OF PRESENT ILLNESS: Briefly, the patient is a 64-year-old female who presents with severe anemia with some shortness of breath, palpitations, dizziness, orthostasis and after getting some blood for a significant anemia, she has responded appropriately. Hypotension has resolved and hematocrit is stable. She states that she has had a history of an ulcer when she was a child. PAST MEDICAL HISTORY: The patient's past medical history is significant for: 1. History of cardiac disease with coronary artery disease, status post inferior wall myocardial infarction. 2. History of hypotension. 3. History of V-tach. 4. History of hypertension. 5. History of hyperlipidemia. 6. History of kidney stones. 7. History of lower back pain with [facility]. 8. History of aortic stenosis. 9. Left subclavian steel. 10. Vitamin D deficiency. 11. Migraine headaches. 12. History of smoking. 13. History of endometriosis. 14. History of right carotid artery stent. PHYSICAL EXAMINATION: GENERAL APPEARANCE: A 64-year-old female who looks older than stated age. HEENT: Unremarkable. NECK: Supple without adenopathy. LUNGS: Clear anteriorly although diminished at the bases with few crackles appreciated bilaterally. HEART: Regular with multiple irregular beats. ABDOMEN: Soft, nondistended, nontender. IMPRESSION AND PLAN: The patient has anemia of undetermined etiology. Most likely given the longstanding anemia with the iron deficiency anemia, this is possibly an upper or even a lower GI bleed. Obviously upper GI would most likely be gastritis/ulcer disease (the patient after discussing this with her, states that she does have a fair bit of reflux that occurs approximately 2-3 nights a week). Secondary etiology obviously is lower GI. Also benign versus malignant etiologies were discussed with the patient. She understands that we will plan on an upper and lower endoscopy for her. The risks as well as benefits have been discussed with her at length, and she would like to proceed with this as scheduled after getting her bowel prep tonight.
[2020-09-22] VITALS (11 sets, daily range): BP systolic 95–122; BP diastolic 64–80; O2SAT 96–98
[2020-09-22] MEDS: PANTOPRAZOLE 40MG VIAL (C9113 PER 1) IV SCH ×2 (01:53→14:05)
[2020-09-22 06:21] LABS: HEMATOCRIT 28.7 % (36.0-47.0); HEMOGLOBIN 8.8 g/dl (12.0-15.5); MEAN CORPUSCULAR HEMOGLOBIN 26.5 pg (27.0-33.0); MEAN CORPUSCULAR HGB CONC 30.7 g/dl (32.0-36.5); MEAN CORPUSCULAR VOLUME 86.4 fl (80.0-96.0); PLATELET COUNT, AUTOMATED 226 10^3/uL (150-450); RED BLOOD COUNT 3.32 10^6/uL (4.00-5.40); WHITE BLOOD COUNT 9.2 10^3/uL (4.0-10.0)
[2020-09-22 06:48] LABS: BLOOD UREA NITROGEN 11 MG/DL (7-18); CALCIUM LEVEL 9.1 MG/DL (8.8-10.2); CARBON DIOXIDE LEVEL 30 MEQ/L (21-32); CHLORIDE LEVEL 105 MEQ/L (98-107); CREATININE FOR GFR 0.76 MG/DL (0.55-1.30); GLOMERULAR FILTRATION RATE > 60.0 (>45); GLUCOSE, FASTING 93 MG/DL (70-100); POTASSIUM SERUM 3.6 MEQ/L (3.5-5.1); SODIUM LEVEL 138 MEQ/L (136-145)
[2020-09-22] MEDS: DOCUSATE SODIUM 100MG CAPSULE PO SCH (09:29)
[2020-09-22] MEDS: SENNA 8.6 MG TAB (SENOKOT) PO SCH (09:29)
[2020-09-22] MEDS: buPROPion **XL** TABLET 150MG (WELLBUTRIN XL) PO SCH (09:29)
[2020-09-22] MEDS: ROSUVASTATIN 10 MG TAB (CRESTOR) PO SCH (09:30)
[2020-09-22] MEDS ORDERED: MAGNESIUM CITRATE 300 ML BTL PO ONE (10:00)
[2020-09-22] MEDS ORDERED: LIDOCAINE 2% 100MG/5ML SDV (FOR ANES.) As Ordered ONE (10:19)
[2020-09-22] MEDS ORDERED: propofoL 200 MG/20 ML VIAL As Ordered ONE (10:19)
--- NOTE | 2020-09-22 11:08 | IPNPDOC ---
Text Note Date of Service The patient was seen on 09/22/20. NOTE SUBJECTIVE: -No acute events -Had 3 BMs with bowel regimen for EGD/colo today with Dr. Hess VITAL SIGNS: Please see below. GENERAL APPEARANCE: Obese, NAD, sitting up in chair HEENT: Normocephalic, atraumatic. Noninjected, anicteric sclera. Mild conjunctival pallor. PERRLA. ORAL CAVITY: Upper and lower dentures in place. MMM NECK: Supple. No lymphadenopathy appreciated. Trachea midline. CARDIOVASCULAR: 2/6 systolic murmur appreciated most at right 2nd intercostal space. Otherwise RRR LUNGS: Continues to have bibasilar mild inspiratory crackles. Symmetric chest expansion. Breathing room air. Speaking full sentences. ABDOMEN: Soft, nontender, nondistended. Obese. Normoactive bowel sounds throughout. EXTREMITIES: WWP, no edema NEUROLOGICAL: Alert and oriented 3. No focal deficits appreciated. PSYCHIATRIC: AOx3 LABORATORY DATA: Reviewed Hgb 8.8 WBC 9.2 Cr 0.76 IMAGING: Portable/1-view Chest Xray, 09/20/20 IMPRESSION: No acute findings. MICROBIOLOGY: Please see below. ASSESSMENT & PLAN: This is a 64yo female w/ notable h/o #Symptomatic iron deficiency anemia -09/15/20 outpatient Hgb 7.4, with Hgb 6.4/Hct 22 in ED at presentation -due to CAD hx, threshold to transfuse is Hgb < 8, s/p 2u pRBCs -patient has never had a colonoscopy nor egd performed per pt and upon review of [facility] records --> consulted gen surg, Dr. eHss with plan for EGD/colo today. NPO -Fe panel ordered in ED: sFe 22, TIBC 522, Ferritin 5, Transferrin sat % 4.2. Anticipate that I will give her some IV iron while inpatient and start PO iron supplementation thereafter -IV protonix BID and zofran PRN #Hypotension: resolved -Holding home anti-hypertensive medications, s/p blood and fluids and now normotensive. #CAD w/ h/o [place] s/p PCI and CAT -ASA 81 was held admission in the setting of critical hemoglobin of 6.4, will restart -Due to CAD history, hemoglobin level to transfuse is below 8 #Hyperlipidemia -Home rosuvastatin continued -2014 echo showed prominent atherosclerosis of the abdominal aorta #Active smoker -has smoked roughly 1/2 ppd for past 51 years (25.5 pack year hx) -pt declined nicotine patch #Presumed h/o depression -home buproprion continued; the Wellbutrin may be also used to decrease patient's nicotine dependence #Obesity -BMI 32.2 -Complicates care, most especially due to increasing endemic inflammation within the body which is worsened by inflammation associated with smoking -A1c ordered #DVT prophylaxis: Teds and sequentials Code status: Full code Disposition: Medsurg VS,Fishbone, I+O VS, Fishbone, I+O Laboratory Tests 09/21/20 14:54 09/22/20 05:57 Vital Signs Date Time Temp Pulse Resp B/P (MAP) Pulse Ox O2 Delivery O2 Flow Rate FiO2 09/22/20 06:00 97.6 93 18 119/73 (88) 91 Room Air I&O- Last 24 Hours up to 6 AM 09/22/20 06:00 Intake Total 3750 ml Output Total 2000 ml Balance 1750 ml GIANNA WONG MD Sep 22, 2020 08:39
[2020-09-22] MEDS ORDERED: FLEET ENEMA PR ONE (11:15)
--- NOTE | 2020-09-22 12:16 | ROOR ---
Patient Name: Marly Hurt Procedure Date: 09/22/2020 12:00 PM Date of : 1955 Age: 64 Room: [facility] Gender: Female Note Status: Finalized Procedure: Upper GI endoscopy Indications: Iron deficiency anemia Providers: Demetrio Hess Jr, MD Referring MD: ROMAN Engel Requesting Provider: Medicines: Propofol per Anesthesia Complications: No immediate complications. Procedure: Pre-Anesthesia Assessment: - Prior to the procedure, a History and Physical was performed, and patient medications and allergies were reviewed. The patient is competent. The risks and benefits of the procedure and the sedation options and risks were discussed with the patient. All questions were answered and informed consent was obtained. Patient identification and proposed procedure were verified by the physician and the nurse in the pre-procedure area and in the procedure room. Mental Status Examination: alert and oriented. Airway Examination: normal oropharyngeal airway and neck mobility. Respiratory Examination: clear to auscultation. CV Examination: normal. ASA Grade Assessment: II - A patient with mild systemic disease. After reviewing the risks and benefits, the patient was deemed in satisfactory condition to undergo the procedure. The anesthesia plan was to use moderate sedation / analgesia (conscious sedation). Immediately prior to administration of medications, the patient was re-assessed for adequacy to receive sedatives. The heart rate, respiratory rate, oxygen saturations, blood pressure, adequacy of pulmonary ventilation, and response to care were monitored throughout the procedure. The physical status of the patient was re-assessed after the procedure. The Endoscope was introduced through the mouth, and advanced to the second part of duodenum. The upper GI endoscopy was accomplished without difficulty. The patient tolerated the procedure well. Findings: The upper third of the esophagus, middle third of the esophagus and lower third of the esophagus were normal. A small hiatal hernia was present. The cardia, gastric fundus, gastric body, gastric antrum and prepyloric region of the stomach were normal. Localized mildly erythematous mucosa was found at the pylorus. The duodenal bulb, first portion of the duodenum and second portion of the duodenum were normal. Impression: - Normal upper third of esophagus, middle third of esophagus and lower third of esophagus. - Small hiatal hernia. - Normal cardia, gastric fundus, gastric body, antrum and prepyloric region of the stomach. - Erythematous mucosa in the pylorus. - Normal duodenal bulb, first portion of the duodenum and second portion of the duodenum. - No specimens collected. Recommendation: - Discharge patient to home (ambulatory). - Return to my office at appointment to be scheduled. Procedure Code(s): --- Professional --- 20325, Esophagogastroduodenoscopy, flexible, transoral; diagnostic, including collection of specimen(s) by brushing or washing, when performed (separate procedure) Diagnosis Code(s): --- Professional --- K44.9, Diaphragmatic hernia without obstruction or gangrene K31.89, Other diseases of stomach and duodenum D50.9, Iron deficiency anemia, unspecified CPT copyright 2019 [employer]. All rights reserved. The codes documented in this report are preliminary and upon director of intelligence review may be revised to meet current compliance requirements. Demetrio Hess MD Demertio Hess Jr, MD 09/22/2020 12:15:35 PM Electronically signed by Demetrio Hess Jr, MD Number of Addenda: 0 Note Initiated On: 09/22/2020 12:00 PM Estimated Blood Loss: Estimated blood loss: none.
--- NOTE | 2020-09-22 12:34 | ROOR ---
Patient Name: Marly Hurt Procedure Date: 09/22/2020 12:01 PM Date of : 1955 Age: 64 Room: [facility] Gender: Female Note Status: Finalized Procedure: Colonoscopy Indications: Iron deficiency anemia Providers: Demetrio Hess Jr, MD Referring MD: ROMAN Engel Requesting Provider: Medicines: Propofol per Anesthesia Complications: No immediate complications. Procedure: Pre-Anesthesia Assessment: - Prior to the procedure, a History and Physical was performed, and patient medications and allergies were reviewed. The patient is competent. The risks and benefits of the procedure and the sedation options and risks were discussed with the patient. All questions were answered and informed consent was obtained. Patient identification and proposed procedure were verified by the physician and the nurse in the pre-procedure area and in the procedure room. Mental Status Examination: alert and oriented. Airway Examination: normal oropharyngeal airway and neck mobility. Respiratory Examination: clear to auscultation. CV Examination: normal. ASA Grade Assessment: II - A patient with mild systemic disease. After reviewing the risks and benefits, the patient was deemed in satisfactory condition to undergo the procedure. The anesthesia plan was to use moderate sedation / analgesia (conscious sedation). Immediately prior to administration of medications, the patient was re-assessed for adequacy to receive sedatives. The heart rate, respiratory rate, oxygen saturations, blood pressure, adequacy of pulmonary ventilation, and response to care were monitored throughout the procedure. The physical status of the patient was re-assessed after the procedure. The Colonoscope was introduced through the anus and advanced to the cecum, identified by appendiceal orifice and ileocecal valve. The colonoscopy was performed without difficulty. The patient tolerated the procedure well. The quality of the bowel preparation was poor. Findings: The rectum, recto-sigmoid colon, descending colon, transverse colon, ascending colon, cecum, appendiceal orifice and ileocecal valve appeared normal. Multiple small and large-mouthed diverticula were found in the sigmoid colon. Non-bleeding external and internal hemorrhoids were found during endoscopy. The hemorrhoids were Grade II (internal hemorrhoids that prolapse but reduce spontaneously) and Grade III (internal hemorrhoids that prolapse but require manual reduction). Impression: - Preparation of the colon was poor. - The rectum, recto-sigmoid colon, descending colon, transverse colon, ascending colon, cecum, appendiceal orifice and ileocecal valve are normal. - Diverticulosis in the sigmoid colon. - Non-bleeding external and internal hemorrhoids. - No specimens collected. Recommendation: - Discharge patient to home (ambulatory). - Repeat colonoscopy in 10 years for screening purposes. Procedure Code(s): --- Professional --- 33721, Colonoscopy, flexible; diagnostic, including collection of specimen(s) by brushing or washing, when performed (separate procedure) Diagnosis Code(s): --- Professional --- K64.2, Third degree hemorrhoids D50.9, Iron deficiency anemia, unspecified K57.30, Diverticulosis of large intestine without perforation or abscess without bleeding CPT copyright 2019 [employer]. All rights reserved. The codes documented in this report are preliminary and upon pasting machine operator review may be revised to meet current compliance requirements. Demetrio Hess MD Demetrio Hess Jr, MD 09/22/2020 12:34:04 PM Electronically signed by Demetrio Hess Jr, MD Number of Addenda: 0 Note Initiated On: 09/22/2020 12:01 PM Estimated Blood Loss: Estimated blood loss: none.
[2020-09-22] MEDS: ACETAMINOPHEN TAB 650MG DOSE (2X325MG) PO PRN (20:12)
[2020-09-23] MEDS: PANTOPRAZOLE 40MG VIAL (C9113 PER 1) IV SCH (01:52)
[2020-09-23 02:00] VITALS: BP 86/60
[2020-09-23 06:00] VITALS: BP 130/76
[2020-09-23 07:21] LABS: HEMATOCRIT 28.8 % (36.0-47.0); HEMOGLOBIN 8.7 g/dl (12.0-15.5); MEAN CORPUSCULAR HEMOGLOBIN 26.4 pg (27.0-33.0); MEAN CORPUSCULAR HGB CONC 30.2 g/dl (32.0-36.5); MEAN CORPUSCULAR VOLUME 87.3 fl (80.0-96.0); PLATELET COUNT, AUTOMATED 256 10^3/uL (150-450); WHITE BLOOD COUNT 9.9 10^3/uL (4.0-10.0)
[2020-09-23 07:39] LABS: BLOOD UREA NITROGEN 22 MG/DL (7-18); CARBON DIOXIDE LEVEL 26 MEQ/L (21-32); CHLORIDE LEVEL 103 MEQ/L (98-107); CREATININE FOR GFR 0.87 MG/DL (0.55-1.30); GLOMERULAR FILTRATION RATE > 60.0 (>45); GLUCOSE, FASTING 106 MG/DL (70-100); POTASSIUM SERUM 3.7 MEQ/L (3.5-5.1); SODIUM LEVEL 137 MEQ/L (136-145)
[2020-09-23] MEDS ORDERED: IRON SUCROSE 100MG 5ML VIAL (J1756 PER 1MG) IV ONE (08:50)
[2020-09-23] MEDS ORDERED: FERR325T3 PO (08:54)
[2020-09-23 09:00] VITALS: O2SAT 97
[2020-09-23] MEDS: ROSUVASTATIN 10 MG TAB (CRESTOR) PO SCH (09:57)
[2020-09-23] MEDS: buPROPion **XL** TABLET 150MG (WELLBUTRIN XL) PO SCH (09:57)
[2020-09-23 10:00] VITALS: BP 111/72
--- NOTE | 2020-09-23 10:04 | REP ---
INDICATION: severe anemia. COMPARISON: None TECHNIQUE: Limited noncontrast enhanced standard helical technique without intravenous or oral bowel preparatory contrast administration. FINDINGS: Chronic changes are suspected in the lung bases seen as fibrotic and/or subsegmental atelectatic changes. There are no pleural or pericardial effusions. Limited evaluation of the solid intra-organs, pancreas, and adrenal glands show no gross abnormalities. Dense material is seen within the dependent portion of the gallbladder consistent with tiny cholelith superior There are bilateral tiny nephroliths at least some of which represent renovascular calcifications. There is an area of cortical thinning and irregularity seen involving the anterior aspect of the inferior pole of the right kidney consistent with focal renal scarring. Limited evaluation of the abdominal aorta shows calcific atherosclerotic change. There is no evidence of para-aortic adenopathy. Limited evaluation of the bowel loops and the mesenteries show no gross abnormalities. There is no evidence of free fluid or free air. There is no evidence of a mass or adenopathy. There are bilateral pelvic phleboliths. Bone window technique throughout the examination shows the osseous structures to be within normal limits. IMPRESSION: 1. Cholelithiasis. 2. Bilateral renal calcifications as described above. 3. Right renal scarring as described above. 4. Chronic changes in the aortic wall as described above. 5. Lung base findings as described above. 6. Other findings and exam limitations as described above. <Electronically signed by Mele Mcbride > 09/23/20 1000
[2020-09-23 10:38] LABS: VITAMIN B12 LEVEL 448 PG/ML (247-911)
[2020-09-23 10:40] LABS: FOLATE 7.3 NG/ML (>5.4)
[2020-09-23] MEDS ORDERED: IRON SUCROSE 100 MG in NS 100 ML OVER 1 HR IV ONE (11:00)
[2020-09-23] MEDS ORDERED: diphenhydrAMINE 50MG/ML VIAL (J1200) IV ONE (11:00)
[2020-09-23] MEDS ORDERED: methylPREDNISolone 40MG 1ML VIAL IV ONE (11:00)
--- NOTE | 2020-09-23 11:17 | DS.PDOC ---
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 HISTORY OF PRESENT ILLNESS: 64yo W with notable PMHx CAD w/ prior ID and s/p PCI and CAT complicated by NSVT/hypotension/bradycardia, moderate aortic stenosis, htn, hld, atherosclerosis, and active 25+ pack-yr smoker, who presented to the [facility] ED on the late afternoon of 09/20/20 with chief complaints of shortness of breath with exertion and generalized weakness. She was seen by her primary care provider last (09/15), and which point a CBC was ordered. 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 She was started on 20 mEq twice a day of oral potassium chloride. She was then called today by her PCP to inform her that her hemoglobin from last week's lab was 7.4 and to present to the emergency department. HOSPITAL COURSE: Upon presentation to ED, measured hemoglobin was 6.4. She was given a 500 mL normal saline bolus and 1 unit of blood was transfused. An iron workup also showed severe iron deficiency anemia with a ferritin of 5. She was transfused a total of 3u pRBCs and BP normalized and Hgb stably improved to 8.7. She had never had a colonoscopy and given the severe iron deficiency anemia, surgery was consulted for evaluation and she had an EGD and colonoscopy on 09/22 that showed a small hiatal hernia, erythematous pylorus and diverticulosis with non bleeding external hemorrhoids respectively. She was given 100mg of IV iron and is now being discharged home with PO iron supplementation with close PCP follow up and surgical follow up per scheduled. Of note, she was hypotensive at presentation and antihypertensives were held. Her BP normalized after fluids and blood and she remained normotensive without resumption of the antihypertensives. I will therefore continue holding them until evaluation by PCP shortly. DISCHARGE MEDICATIONS: Please see below. ALLERGIES: Please see below. PHYSICAL EXAMINATION ON DISCHARGE: VITAL SIGNS: Please see below. GENERAL APPEARANCE: Obese, NAD, sitting up in chair HEENT: Normocephalic, atraumatic. Noninjected, anicteric sclera. Mild conjun ctival pallor. PERRLA. ORAL CAVITY: Upper and lower dentures in place. MMM NECK: Supple. No lymphadenopathy appreciated. Trachea midline. CARDIOVASCULAR: 2/6 systolic murmur appreciated most at right 2nd intercostal space. Otherwise RRR LUNGS: Continues to have bibasilar mild inspiratory crackles. Symmetric chest expansion. Breathing room air. Speaking full sentences. ABDOMEN: Soft, nontender, nondistended. Obese. Normoactive bowel sounds throughout. EXTREMITIES: WWP, no edema NEUROLOGICAL: Alert and oriented 3. No focal deficits appreciated. PSYCHIATRIC: AOx3 LABORATORY DATA: Please see below IMAGING: Portable/1-view Chest Xray, 09/20/20 IMPRESSION: No acute findings. CT A/P: Chronic changes are suspected in the lung bases seen as fibrotic and/or subsegmental atelectatic changes. There are no pleural or pericardial effusions. Limited evaluation of the solid intra-organs, pancreas, and adrenal glands show no gross abnormalities. Dense material is seen within the dependent portion of the gallbladder consistent with tiny cholelith superior There are bilateral tiny nephroliths at least some of which represent renovascular calcifications. There is an area of cortical thinning and irregularity seen involving the anterior aspect of the inferior pole of the right kidney consistent with focal renal scarring. Limited evaluation of the abdominal aorta shows calcific atherosclerotic change. There is no evidence of para-aortic adenopathy. Limited evaluation of the bowel loops and the mesenteries show no gross abnormalities. There is no evidence of free fluid or free air. There is no evidence of a mass or adenopathy. There are bilateral pelvic phleboliths. Bone window technique throughout the examination shows the osseous structures to be within normal limits. IMPRESSION: 1. Cholelithiasis. 2. Bilateral renal calcifications as described above. 3. Right renal scarring as described above. 4. Chronic changes in the aortic wall as described above. 5. Lung base findings as described above. 6. Other findings and exam limitations as described above. EGD: The upper third of the esophagus, middle third of the esophagus and lower third of the esophagus were normal. A small hiatal hernia was present. The cardia, gastric fundus, gastric body, gastric antrum and prepyloric region of the stomach were normal. Localized mildly erythematous mucosa was found at the pylorus. The duodenal bulb, first portion of the duodenum and second portion of the duodenum were normal. Impression: - Normal upper third of esophagus, middle third of esophagus and lower third of esophagus. - Small hiatal hernia. - Normal cardia, gastric fundus, gastric body, antrum and prepyloric region of the stomach. - Erythematous mucosa in the pylorus. - Normal duodenal bulb, first portion of the duodenum and second portion of the duodenum. - No specimens collected. Recommendation: - Discharge patient to home (ambulatory). Colonoscopy: Findings: The rectum, recto-sigmoid colon, descending colon, transverse colon, ascending colon, cecum, appendiceal orifice and ileocecal valve appeared normal. Multiple small and large-mouthed diverticula were found in the sigmoid colon. Non-bleeding external and internal hemorrhoids were found during endoscopy. The hemorrhoids were Grade II (internal hemorrhoids that prolapse but reduce spontaneously) and Grade III (internal hemorrhoids that prolapse but require manual reduction). Impression: - Preparation of the colon was poor. - The rectum, recto-sigmoid colon, descending colon, transverse colon, ascending colon, cecum, appendiceal orifice and ileocecal valve are normal. - Diverticulosis in the sigmoid colon. - Non-bleeding external and internal hemorrhoids. - No specimens collected. Recommendation: - Discharge patient to home (ambulatory). - Repeat colonoscopy in 10 years for screening purposes. PROGNOSIS: Good ACTIVITY: As tolerated DIET: 2g sodium DISCHARGE PLAN: Home wtih PCP follow up and supplemental iron DISPOSITION: Home DISCHARGE INSTRUCTIONS: Home wtih PCP follow up and supplemental iron ITEMS TO FOLLOWUP ON ON OUTPATIENT: JOSE ALBERTO DISCHARGE CONDITION: Stable TIME SPENT ON DISCHARGE: 45 minutes. Vital Signs/I&Os Vital Signs Date Time Temp Pulse Resp B/P (MAP) Pulse Ox O2 Delivery O2 Flow Rate FiO2 09/23/20 06:00 99.1 90 16 130/76 (94) 91 Room Air I&O- Last 24 Hours up to 6 AM 09/23/20 06:00 Intake Total 1540 ml Output Total 0 ml Balance 1540 ml Laboratory Data Labs 24H Laboratory Tests 2 09/23/20 06:31: Anion Gap 8, Glomerular Filtration Rate > 60.0, Calcium Level 9.0 09/23/20 06:32: Nucleated Red Blood Cells % (auto) 0.0 CBC/BMP Laboratory Tests 09/23/20 06:31 09/23/20 06:32 Microbiology Microbiology 09/20/20 Respiratory Virus Panel (PCR) ([facility]) - Final, Complete Discharge Medications Scheduled Aspirin (Aspirin) 81 Mg Tab.chew, 81 MG PO QHS, (Reported) Bupropion Hcl (Bupropion Xl) 150 Mg Tab.er.24h, 150 MG PO DAILY, (Reported) Famotidine (Famotidine) 40 Mg Tablet, 20 MG PO BID, (Reported) Ferrous Sulfate (Ferrous Sulfate) 325 Mg Tablet.dr, 1 TAB PO DAILY Potassium Chloride (Klor-Con M20) 20 Meq Tab.er.prt, 20 MEQ PO BID, (Reported) Rosuvastatin Calcium (Rosuvastatin Calcium) 40 Mg Tablet, 40 MG PO DAILY, (Reported) Scheduled PRN D-Methorphan/PE/Acetaminophen (Vicks Dayquil Liquicaps) 1 Each Capsule, 2 CAP PO DAILY PRN for COLD SYMPTOMS, (Reported) Allergies Coded Allergies: Sulfa (Sulfonamide Antibiotics) (Verified Allergy, Unknown, 09/20/20) GIANNA WONG MD Sep 23, 2020 09:10
== END 2020-09-23 13:13 | disposition home or self-care (01) | DRG 812 ==
LOC: M ED 17:14 → M ED INP 20:00 → ENRESERV 21:50 → M ICU 22:24 → M MSPAV 09-21 16:08
PROVIDERS: ADMIT Internal Medicine; ATTEND Internal Medicine
PROC: 30233N1 Transfusion of Nonautologous Red Blood Cells into Peripheral Vein, Percutaneous Approach (ICD-10-PCS; 2020-09-20)
PROC: 0DJD8ZZ Inspection of Lower Intestinal Tract, Via Natural or Artificial Opening Endoscopic (ICD-10-PCS; 2020-09-22)
PROC: 0DJ08ZZ Inspection of Upper Intestinal Tract, Via Natural or Artificial Opening Endoscopic (ICD-10-PCS; principal; 2020-09-22 12:00)
DX: D50.9 Iron deficiency anemia, unspecified (principal); E87.6 Hypokalemia; I25.10 Atherosclerotic heart disease of native coronary artery without angina pectoris; I10 Essential (primary) hypertension; E78.5 Hyperlipidemia, unspecified; M51.16 Intervertebral disc disorders with radiculopathy, lumbar region; I70.0 Atherosclerosis of aorta; E55.9 Vitamin D deficiency, unspecified; G43.909 Migraine, unspecified, not intractable, without status migrainosus; F17.210 Nicotine dependence, cigarettes, uncomplicated; I35.0 Nonrheumatic aortic (valve) stenosis; F32.9 Major depressive disorder, single episode, unspecified; E66.9 Obesity, unspecified; L50.0 Allergic urticaria; T45.4X5A Adverse effect of iron and its compounds, initial encounter; I95.9 Hypotension, unspecified; K44.9 Diaphragmatic hernia without obstruction or gangrene; K31.89 Other diseases of stomach and duodenum; K57.30 Diverticulosis of large intestine without perforation or abscess without bleeding; K64.1 Second degree hemorrhoids; K64.2 Third degree hemorrhoids; K64.4 Residual hemorrhoidal skin tags; Q63.9 Congenital malformation of kidney, unspecified; Z87.442 Personal history of urinary calculi; Z95.828 Presence of other vascular implants and grafts; Z68.32 Body mass index [BMI] 32.0-32.9, adult; Z79.82 Long term (current) use of aspirin; Z88.2 Allergy status to sulfonamides; Z79.899 Other long term (current) drug therapy

== ENCOUNTER → 2020-09-30 | Outpatient (REF) | payer MEDICARE, OTHER ==
[~2020-09-30] MED LIST changes: +LYRI75CA PO; +OMEP40CA97 PO; +TRAM50TA2 PO
[2020-09-30 16:52] LABS: HEMATOCRIT 36.5 % (36.0-47.0); HEMOGLOBIN 10.7 g/dl (12.0-15.5); MEAN CORPUSCULAR HEMOGLOBIN 27.4 pg (27.0-33.0); MEAN CORPUSCULAR HGB CONC 29.3 g/dl (32.0-36.5); MEAN CORPUSCULAR VOLUME 93.6 fl (80.0-96.0); PLATELET COUNT, AUTOMATED 324 10^3/uL (150-450); WHITE BLOOD COUNT 10.2 10^3/uL (4.0-10.0)
[2020-09-30 17:16] LABS: BLOOD UREA NITROGEN 13 MG/DL (7-18); CALCIUM LEVEL 9.7 MG/DL (8.8-10.2); CARBON DIOXIDE LEVEL 26 MEQ/L (21-32); CHLORIDE LEVEL 106 MEQ/L (98-107); CREATININE FOR GFR 0.74 MG/DL (0.55-1.30); GLOMERULAR FILTRATION RATE > 60.0 (>45); GLUCOSE, FASTING 87 MG/DL (70-100); MAGNESIUM LEVEL 2.3 MG/DL (1.8-2.4); POTASSIUM SERUM 4.4 MEQ/L (3.5-5.1); SODIUM LEVEL 138 MEQ/L (136-145)
== END ==
LOC: M SFHCADAM 12:10
PROVIDERS: ATTEND Physician Assistant
DX: D50.9 Iron deficiency anemia, unspecified (principal); E87.6 Hypokalemia; K21.9 Gastro-esophageal reflux disease without esophagitis
CPT/HCPCS: 80048; 83735; 85027; 86255; G0463

== ENCOUNTER → 2020-10-07 | Outpatient (CLI) | payer MEDICARE, BC, OTHER ==
[~2020-10-07] MED LIST changes: -LYRI75CA PO; -OMEP40CA97 PO; -TRAM50TA2 PO
--- NOTE | 2020-10-07 18:12 | REPVR ---
PROCEDURE INFORMATION: Exam: MR Cervical Spine Without Contrast Exam date and time: 10/07/2020 4:25 PM Age: 64 years old Clinical indication: Neck pain and radicular pain (radiculopathy); Location of radicular pain not specified; Additional info: Lumbar radicular pain TECHNIQUE: Imaging protocol: Multiplanar magnetic resonance images of the cervical spine without contrast. COMPARISON: NM Bone Scan Whole Body 09/11/2016 10:32 AM FINDINGS: Vertebrae: Reversal of cervical lordosis. Spinal cord: Normal signal. No cord compression. C1-C2: There are degenerative changes demonstrated in the atlantoaxial joint at C1-C2 with osteophytes and joint space narrowing. The transverse ligament is normal. C2-C3: No significant disc disease. No significant spinal stenosis. C3-C4: No significant disc disease. No significant spinal stenosis. C4-C5: Broad posterior disc protrusion at C4-C5 effaces the ventral subarachnoid space without cord impingement. Moderate foraminal narrowing on the right and severe foraminal narrowing on the left. C5-C6: Broad posterior disc protrusion at C5-C6 effaces the ventral subarachnoid space with minimal right barbara cord impingement. There is moderate to severe bilateral foraminal narrowing. C6-C7: Broad posterior disc protrusion at C6-C7 effaces the ventral subarachnoid space without cord impingement. There is moderate to severe bilateral foraminal narrowing. C7-T1: No significant disc disease. No significant spinal stenosis. Soft tissues: See "C1-C2" finding. Vertebral arteries: Expected flow voids in the vertebral arteries. IMPRESSION: 1. Degenerative spondylosis as described above with multilevel bilateral foraminal stenoses mild right barbara cord impingement at C5-C6. 2. No acute findings. Electronically signed by: Earl Zimmerman On 10/07/2020 18:11:41 PM
--- NOTE | 2020-10-07 18:20 | REPVR ---
PROCEDURE INFORMATION: Exam: MR Lumbar Spine Without Contrast Exam date and time: 10/07/2020 4:25 PM Age: 64 years old Clinical indication: Low back pain and other: Lumbar raducular pain TECHNIQUE: Imaging protocol: Multiplanar magnetic resonance images of the lumbar spine without intravenous contrast. COMPARISON: MRI-Spine, L.S. without con 07/20/2016 3:00 PM FINDINGS: Vertebrae: T1 weighted images demonstrate mottled decreased signal throughout the vertebrae, findings which can be seen in association with chronic anemia or other myeloproliferative abnormality. This should be correlated with clinical evaluation. Spinal cord: Normal signal. No cord compression. L1-L2: Central disc protrusion L1-L2 effaces the mid ventral thecal sac without neural compromise. L2-L3: Mild bilateral facet joint arthropathy L2-L3. L3-L4: There is a moderate central spinal stenosis at L3-L4 secondary to diffuse annular bulging, thickened ligamentum flavum with facet joint arthropathy. L4-L5: There is a moderate to severe central spinal stenosis at L4-L5 secondary to diffuse annular bulging, thickened ligamentum flavum with marked bilateral facet joint arthropathy. L5-S1: Mild diffuse annular bulge L5-S1. No neural compromise. Marked bilateral facet joint arthropathy. Soft tissues: Unremarkable. IMPRESSION: 1. T1 weighted images demonstrate mottled decreased signal throughout the vertebrae, findings which can be seen in association with chronic anemia or other myeloproliferative abnormality. This should be correlated with clinical evaluation. 2. Degenerative spondylosis. Moderate central spinal stenosis L3-L4 and moderate to severe central spinal stenosis L4-L5. 3. Multilevel bilateral foraminal stenosis. 4. Small central disc protrusion L1-L2 without neural compromise. Electronically signed by: Earl Zimmerman On 10/07/2020 18:20:05 PM
== END ==
LOC: M PLARAD 14:42
PROVIDERS: ATTEND Physician Assistant
DX: M54.5 Low back pain (principal)

== ENCOUNTER → 2020-10-13 | Outpatient (REF) | payer MEDICARE, OTHER ==
[~2020-10-13] MED LIST changes: +LYRI75CA PO; +OMEP40CA97 PO; +TRAM50TA2 PO
[2020-10-13 12:54] LABS: BASO # 0.1 10^3/uL (0.0-0.2); EOS # 0.2 10^3/uL (0.0-0.5); EOS % 2.6 % (0.0-3.0); HEMATOCRIT 38.9 % (36.0-47.0); HEMOGLOBIN 11.7 g/dl (12.0-15.5); LYMPH # 2.1 10^3/uL (1.5-5.0); LYMPH % 26.6 % (24.0-44.0); MEAN CORPUSCULAR HEMOGLOBIN 27.9 pg (27.0-33.0); MEAN CORPUSCULAR HGB CONC 30.1 g/dl (32.0-36.5); MEAN CORPUSCULAR VOLUME 92.8 fl (80.0-96.0); MONO # 0.5 10^3/uL (0.0-0.8); MONO % 6.7 % (2.0-8.0); NEUTROPHILS % 62.7 % (36.0-66.0); PLATELET COUNT, AUTOMATED 320 10^3/uL (150-450); RED BLOOD COUNT 4.19 10^6/uL (4.00-5.40)
[2020-10-13 13:19] LABS: FERRITIN 42 NG/ML (8-252); IRON (FE) 52 UG/DL (50-170); PERCENT SATURATION 14.4 % (13.2-45.0); TOTAL IRON BINDING CAPACITY 362 UG/DL (250-450); TOTAL PROTEIN 7.3 GM/DL (6.4-8.2)
[2020-10-14 18:08] LABS: FREE KAPPA LIGHT CHAINS SERUM 21.8 mg/L (3.3-19.4); FREE LAMBDA LIGHT CHAINS SERUM 15.3 mg/L (5.7-26.3); KAPPA/LAMBDA RATIO SERUM 1.42 (0.26-1.65)
[2020-10-17 13:41] LABS: ALBUMIN 4.22 GM/DL (3.29-5.55); ALBUMIN % 57.8 % (55.8-66.1); ALPHA-1-GLOBULIN % 5.3 % (2.9-4.9); ALPHA-2-GLOBULINS % 14.2 % (7.1-11.8); BETA-1-GLOBULINS % 6.2 % (4.7-7.2); BETA-2-GLOBULINS % 5.5 % (3.2-6.5)
[2020-10-17 13:42] LABS: ALPHA-1-GLOBULINS 0.39 GM/DL (0.17-0.41); ALPHA-2-GLOBULINS 1.04 GM/DL (0.42-0.99); BETA-1-GLOBULINS 0.45 GM/DL (0.28-0.60)
== END ==
LOC: M SFHCADAM 10:55
PROVIDERS: ATTEND Physician Assistant
DX: R93.7 Abnormal findings on diagnostic imaging of other parts of musculoskeletal system (principal); D50.9 Iron deficiency anemia, unspecified
CPT/HCPCS: 82728; 83010; 83550; 83883; 84165; 85025; 85046; G0463

== ENCOUNTER → 2020-10-14 | Outpatient (CLI) | payer MEDICARE, OTHER ==
--- NOTE | 2020-10-18 02:21 | ECWPNPC ---
PATIENT NAME: ZENA WELLS : 1955 GENDER: FEMALE VISIT DATE: 10/14/2020 DISCHARGE DATE: 10/14/20 0950 VISIT LOCKED DATE TIME: PHYSICIAN: VIRGILIO DE LOS SANTOS PHYSICIAN PAGER NO: ACTIVE RESOURCE: VIRGILIO DE LOS SANTOS REASON FOR APPOINTMENT 1. LOW BACK/NECK HISTORY OF PRESENT ILLNESS DEPRESSION SCREENIN-YEAR-OLD FEMALE IN FOR INITIAL PAIN CONSULT REGARDING LOW BACK AND NECK PAIN. PATIENT STATES SHE INJURED HER NECK BACK IN THE 80S WHEN THEY SWITCHED FROM TYPEWRITERS TO COMPUTERS AND SHE DID NOT HAVE THE PROPER EQUIPMENT FOR THE TRANSITION. SHE FURTHER STATES THAT SHE INJURED HER BACK WHILE GETTING OUT OF A TRUCK AND HER SHOELACES WRAPPED AROUND THE SEAT LEVER AND SHE FELL AND TWISTED HER BACK. SHE RATES HER PAIN CURRENTLY AT A 5-8/10 AND DESCRIBES IT ACHING, CONTINUOUS AND SHOOTING. SHE DENIES INJECTIONS AND/OR MEDICATIONS IN THE PAST THAT HAVE HELPED HER SYMPTOMS. PHQ-2 (2015 EDITION) LITTLE INTEREST OR PLEASURE IN DOING THINGS?NOT AT ALL FEELING DOWN, DEPRESSED, OR HOPELESS?NOT AT ALL TOTAL SCORE0 GENERAL: - -. FALL RISK SCREENING: SCREENING : NO FALLS REPORTED IN THE LAST YEAR. PAIN SCREENING: PATIENT HAS A COMPLAINT OF ACUTE OR CHRONIC PAIN :YES LOCATION OF PAIN:NECK, LOW BACK INTENSITY OF PAIN (SCALE OF 1 TO 10):5 HIGH 8 WHAT DOES YOUR PAIN FEEL LIKE:ACHING, CONTINOUS, SHOOTING DURATION:CONTINOUS, STEADY, AWAKENS FROM SLEEP NECK AWAKENS PATIENT FROM SLEEP PAIN IS INCREASED BY:ACTIVITIES, PROLONGED STANDING PAIN IS DECREASED BY:SITTING NURSING NOTE: - -. PAIN CENTER INTAKE QUESTIONS: DO YOU HAVE A HISTORY OF MRSA? :NO DO YOU TAKE A BLOOD THINNERS? :NO BABY ASPIRIN DO YOU HAVE ANY BLEEDING DISORDERS? :YES ANEMIA. PATIENT IS BEING WORKED UP FOR BLEEDING DISORDER BY DR. ROSE AT THIS TIME. ANY NEW NUMBNESS OR WEAKNESS IN YOUR LEGS OR ARMS? :NO ANY PACEMAKER,DEFIBRILLATOR, OR DORSAL COLUMN STIMULATOR? :NO DO YOU HAVE ANY RASHES OR OPEN SORES? :NO ARE YOU ALLERGIC TO IV DYE? :NO ARE YOU DIABETIC? :NO ANY NEW PROBLEMS WITH YOUR MEDICATIONS? :NO HAVE YOU RECEIVED A VACCINE IN THE PAST 30 DAYS? :NO DO YOU PLAN TO RECEIVE A VACCINE IN THE NEXT 21 DAYS? :NO DO YOU NEED ANY PRESCRIPTION? :NO DO YOU TAKE ANY IMMUNOSUPPRESSIVE MEDICATIONS? :NO IS THERE A CHANCE YOU COULD BE ? :NO ARE YOU BREAST FEEDING? :NO CURRENT MEDICATIONS TAKING BUPROPION HCL ER (XL) 150 MG TABLET EXTENDED RELEASE 24 HOUR TAKE ONE TABLET BY MOUTH EVERY MORNING TAKING FAMOTIDINE 40 MG TABLET 1/2 TABLET ORALLY TWICE A DAY TAKING ROSUVASTATIN CALCIUM 40 MG TABLET TAKE ONE TABLET BY MOUTH AT BEDTIME ORAL TAKING IRON (FERROUS SULFATE) 325 (65 FE) MG TABLET 1 TABLET ORALLY ONCE A DAY, NOTES: HAS HAD TO STOP FOR COLONOSCOPY 10/14/2020 TAKING VITAMIN D-3 125 MCG (5000 UT) TABLET DIRECTED ORALLY TAKING OMEPRAZOLE 40 MG CAPSULE DELAYED RELEASE 1 CAPSULE 30 MINUTES BEFORE MORNING MEAL ORALLY ONCE A DAY NOT-TAKING BUPROPION HCL ER (XL) 150 MG TABLET EXTENDED RELEASE 24 HOUR TAKE ONE TABLET BY MOUTH EVERY MORNING UNKNOWN POTASSIUM CHLORIDE OSCAR ER 20 MEQ TABLET EXTENDED RELEASE TAKE ONE TABLET BY MOUTH TWICE A DAY ORAL UNKNOWN EXCEDRIN MIGRAINE 250-250-65 MG TABLET 2 TABLETS ORALLY ONCE A DAY UNKNOWN ASPIRIN 81 MG TABLET 1 TABLET ORALLY ONCE A DAY UNKNOWN LOSARTAN POTASSIUM 100 MG TABLET TAKE ONE TABLET BY MOUTH EVERY DAY UNKNOWN CHLORTHALIDONE 25 MG TABLET TAKE ONE TABLET BY MOUTH EVERY DAY UNKNOWN AMLODIPINE BESYLATE 2.5 MG TABLET TAKE ONE TABLET BY MOUTH EVERY DAY MEDICATION LIST REVIEWED AND RECONCILED WITH THE PATIENT PAST MEDICAL HISTORY CORONARY ARTERY DISEASE - S/P INF-POSTERIOR WALL [place] 11/2003 - COMPLICATED BY SEVERE HYPOTENSION, BRADYCARDIA, RBBB AND NON-SUSTAINED VT, S/P CATH AND PTCA WITH 95% STENOSIS RCA S/P CAT, EF 60 - 65% -() [facility], PREVIOUSLY FOLLOWED BY - STRESS TEST 04/2015 - MILDLY INCREASED RISK, STRESS SPECT 05/2018 - SLIGHTLY LESS RCA DISTRIBUTION INDUCIBLE OCCLUSION, MILDLY INCREASED RISK HYPERLIPIDEMIA MIGRAINES OSTEOARTHRITIS - LUMBAR SPINE HISTORY OF KIDNEY STONES HYPERTENSION 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 HAS EXCERCISES TO DO WHEN IT FLARES UP. HAS RADICULOPATHY WITH WALKING ON UNEVEN SURFACES OR DISTANCES - HANDICAP PARKING PERMIT PAPERWORK GIVEN 08/2019 LOW DOSE LUNG CANCER SCREENING CT - 2017 ECHO 11/2018 - MODERATE CALCIFIC AORTIC STENOSIS, MILD LVH WITH HYPERKINETIC WALL MOTION ALLERGIES SULFA (FOR ALLERGY USE ONLY): RASH - ALLERGY LIPITOR: JOINT PAIN - ALLERGY LISINOPRIL: JOINT PAIN - ALLERGY CHANTIX: BAD DREAMS - SIDE EFFECTS SURGICAL HISTORY ENDOMETRIOSIS 1993 HEART STENT 2003 COLONOSCOPY 09/2020 EGD 09/2020 FAMILY HISTORY FATHER: 72 YRS, [place] IN 50, DIAGNOSED WITH DIABETES MOTHER: ALIVE 89 YRS, HYPERTENSION PATERNAL GRAND MOTHER: , DIABETES 1 BROTHER(S) , 1 SISTER(S) - HEALTHY. 5 SON(S) , 1 DAUGHTER(S) - HEALTHY. SOCIAL HISTORY GENERAL: TOBACCO USE ARE YOU A:CURRENT SMOKER ARE YOU INTERESTED IN QUITTING?NOT READY TO QUIT COUNSELED THE PATIENT ON SMOKING EFFECTS, EDUCATION [id number]/07/2021 HOW MANY CIGARETTES A DAY DO YOU SMOKE?6-10 HOW SOON AFTER YOU WAKE UP DO YOU SMOKE YOUR FIRST CIGARETTE?6-30 MIN HOW OFTEN DO YOU SMOKE CIGARETTES?EVERY DAY PATIENT COUNSELED ON THE DANGERS OF TOBACCO USE AND URGED TO QUIT:03/14/2018 LATEX QUESTIONNAIRE LATEX ALLERGY : HAVE YOU EVER DEVELOPED ANY TYPE OF REACTION AFTER HANDLING LATEX PRODUCTS SUCH RUBBER GLOVES, CONDOMS, DIAPHRAGMS, BALLOONS, SOCKS, OR UNDERWEAR?NO LATEX ALLERGY : HAVE YOU EVER DEVELOPED ANY TYPE OF REACTION DURING OR AFTER DENTAL APPOINTMENT, VAGINAL/RECTAL EXAMINATION, SURGICAL PROCEDURE, OR ANY OTHER EXPOSURE?NO DATE ASKED : 09/15/2020 LATEX RISK : HAVE YOU EVER HAD ANY DIFFICULTY BREATHING OR HIVES AFTER EATING OR HANDLING ANY FRUITS, OR VEGETABLES; SUCH KIWI, BANANAS, STONE FRUITS, OR CHESTNUTSNO LATEX RISK : DO YOU HAVE A PREVIOUS PERSONAL HISTORY OF MORE THAN NINE SURGERIES, SPINA BIFIDA, OR REPEATED CATHERIZATIONS? NO LATEX RISK : ARE YOU FREQUENTLY EXPOSED TO LATEX PRODUCTS IN YOUR OCCUPATION?NO ALCOHOL USE: RARELY. LUNG CANCER SCREENING SMOKING STATUS:CURRENT SMOKER IS THE PATIENT BETWEEN THE AGE OF 53 AND 75?YES HAS THE PATIENT EVER BEEN DIAGNOSED WITH LUNG CANCER?NO PACK YEARS = NUMBER OF PACKS PER DAY SMOKED X NUMBER OF YEARS SMOKED:30 CREATE REFERRAL:GENERATE AND CREATE REFERRAL TO THE ONCOLOGY NURSE NAVIGATOR (SMP) LISTING USING THE LDCT SCAN PROCEDURE BMI CARE GOAL FOLLOW-UP ABOVE NORMAL BMI FOLLOW-UPDIETARY MANAGEMENT EDUCATION, GUIDANCE, AND COUNSELING ALCOHOL SCREENING DID YOU HAVE A DRINK CONTAINING ALCOHOL IN THE PAST YEAR?YES HOW OFTEN DID YOU HAVE SIX OR MORE DRINKS ON ONE OCCASION IN THE PAST YEAR?NEVER (0 POINTS) HOW MANY DRINKS DID YOU HAVE ON A TYPICAL DAY WHEN YOU WERE DRINKING IN THE PAST YEAR?1 OR 2 (0 POINTS) HOW OFTEN DID YOU HAVE A DRINK CONTAINING ALCOHOL IN THE PAST YEAR?MONTHLY OR LESS (1 POINT) POINTS1 INTERPRETATIONNEGATIVE RECREATIONAL DRUG USE DRUG USE?NO CAFFEINE 2-5/DAY. SEXUAL HX HAD SEX IN THE LAST 12 MONTHS (VAGINAL, ORAL, OR ANAL)?NO LMP:AGE 43 HAVE YOU EVER HAD AN STD?NO LANGUAGE LANGUAGES SPOKEN:DANISH LEARNING BARRIERS / SPECIAL NEEDS CHANGE FROM LAST VISIT?NO BARRIERS TO LEARNING?NO HEARING IMPAIRED?YES PARTIALLY TONE DEAF. VISION IMPAIRED?NO COGNITIVELY IMPAIRED?NO READINESS TO LEARN?YES LEARNING PREFERENCES?YES :BOOKLETS, HANDOUTS LEARNING CAPABILITIES PRESENT?YES EMOTIONAL BARRIERS?NO SPECIAL DEVICES?NO ACCESS NURSE NEEDED?NO DOMESTIC VIOLENCE STATUS: DO YOU FEEL SAFE IN YOUR ENVIRONMENT?YES OCCUPATION: RETIRED. DIET: REGULAR. EXERCISE: NO REGULAR EXERCISE. MARITAL STATUS: , MOTHER OF 10, 6 BIOLOGICAL, 4 STEPCHILDREN. HOSPITALIZATION/MAJOR DIAGNOSTIC PROCEDURE SURGERY KIDNEY INFECTION 2004 MYOCARDIAL INFARCTION 2004 CHILDBIRTH X8 ANEMIA 09/2020 REVIEW OF SYSTEMS CONSTITUTIONAL: ANY RECENT FEVER NO . CHILLS NO . WEIGHT CHANGE OF UNKNOWN REASONS NO . MUSCULOSKELETAL: ANY UNUSUAL JOINT PAIN OR SWELLING NOT MENTIONED NO . SYSTEMIC LUPUS NO . ANY NEUROMUSCULAR DISORDER NOT MENTIONED NO . LYME DISEASE NO . GASTROENTEROLOGY: ANY NEW CHANGE IN BOWEL CONTROL? NO . HISTORY OF LIVER DISORDER NOT MENTIONED NO . HISTORY OF UNUSUAL ABDOMINAL PAIN OR CRAMPING NOT MENTIONED NO . NO CONSTIPATION. GENITOURINARY: ANY NEW CHANGE IN BLADDER CONTROL? NO . ANY RENAL/KIDNEY CONDITON NOT MENTIONED NO . NEUROLOGY: HISTORY OF TBI NOT MENTIONED NO . OTHER NEW NUMBNESS OR PAIN PATTERNS NOT MENTIONED NO . NEW ONSET DIZZINESS OR NEUROLOGICAL CHANGES NOT MENTIONED NO . HISTORY OF SEVERE HEADACHES NOT MENTIONED NO . HISTORY OF STROKE OR NEUROLOGICAL DISORDER NOT MENTIONED NO . CARDIOLOGY: HEART SURGERY NO . CONGESTIVE HEART FAILURE/FLUID OVERLOAD NOT MENTIONED NO . HISTORY OF CHEST PAIN,IRREGULAR HEART BEAT NOT MENTIONED NO . RESPIRATORY: SHORTNESS OF BREATH ON EXERTION, WHEEZES, UNUSUAL COUGH NOT MENTIONED NO . ENDOCRINOLOGY: ADRENAL GLAND OR THYROID DISORDERS NOT MENTIONED NO . UNUSUAL URINATION, DIZZINESS OR LETHARGY NOT MENTIONED NO . VITAL SIGNS WT 186.6 LBS, HT 5'5", BMI 31.05 INDEX, BP 128/82 MANUAL, HR 98 /MIN, RR 18 /MIN, TEMP 99.2 F, OXYGEN SAT % 100%, SAFE IN ENV? (Y/N) YES, REVIEWED BY: NARDA MADERA MA. EXAMINATION GENERAL EXAMINATION: GENERALNO ACUTE DISTRESS, WELL NOURISHED AND HYDRATED. PSYCHAPPROPRIATE MOOD AND AFFECT . NECK:DENIES POINT TENDERNESS ALONG THE CERVICAL SPINE, PATIENT DOES ENDORSE INCREASED PAIN WITH FACET LOADING.. LUNGS:CLEAR TO AUSCULTATION BILATERALLY, NO WHEEZES, RHONCHI, RALES. HEART:NO MURMURS, REGULAR RATE AND RHYTHM. BACK:PATIENT DENIES POINT TENDERNESS ALONG THE LUMBAR SPINE, SHE DOES ENDORSE INCREASED PAIN WITH FACET LOADING.. MUSCULOSKELETAL:NOTABLE WEAKNESS OF THE LEFT LOWER EXTREMITY, RIGHT LOWER EXTREMITY WITHIN NORMAL LIMITS. ASSESSMENTS CERVICAL DISC DISORDER WITH RADICULOPATHY - M50.10 (PRIMARY) INTERVERTEBRAL DISC DISORDER WITH RADICULOPATHY OF LUMBOSACRAL REGION - M51.17 USE OF OPIATES FOR THERAPEUTIC PURPOSES - Z79.891 TREATMENT CERVICAL DISC DISORDER WITH RADICULOPATHY CLINICAL NOTES: MEDICATION INFORMATION PRINTED AND PROVIDED TO PATIENT. PATIENT VERBALIZED AN UNDERSTANDING. PARUL MADERA MA . INTERVERTEBRAL DISC DISORDER WITH RADICULOPATHY OF LUMBOSACRAL REGION START LYRICA CAPSULE, 75 MG, 1 CAPSULE, ORALLY, TWICE DAILY, 30 DAYS, 60 START TRAMADOL HCL TABLET, 50 MG, 1 TABLET NEEDED, ORALLY, DAILY PRN PAIN, 30 DAYS, 30 NOTES: 64-YEAR-OLD FEMALE IN FOR INITIAL PAIN CONSULT REGARDING NECK AND LOW BACK PAIN. GIVEN PRESENTING SYMPTOMS AND RESULTS OF PHYSICAL EXAMINATION RECOMMEND STARTING TRAMADOL 50 MG DAILY NEEDED FOR PAIN ALSO RECOMMENDED LYRICA 75 MG TWICE A DAY WITH FOLLOW-UP IN ONE MONTH TO DETERMINE EFFICACY OF TREATMENT. PATIENT ADMITS THAT SHE IS CURRENTLY BEING WORKED UP FOR ANEMIA SUCH AT THIS TIME WE'LL HOLD OFF ON DISCUSSING PROCEDURES. PATIENT HAS EXPRESSED UNDERSTANDING OF AND WAS IN AGREEMENT WITH TREATMENT PLAN. GIVEN TIME TO ASK QUESTIONS AND EXPRESS CONCERNS. ISTOP REGISTRY REVIEWED AND DEMONSTRATES COMPLLIANCE. (REF # [id number] ). USE OF OPIATES FOR THERAPEUTIC PURPOSES LAB: URINE TEST GROUP PARUL MADERA 10/14/2020 9:41:38 AM > LAST DOSE: BUPROPRION 10/13/2020 AT 0900 OTHERS NOTES: PREGABALIN MATERIAL WAS PRINTED,TRAMADOL MATERIAL WAS PRINTED. PROCEDURE CODES FA211 ESTABILISHED PATIENT [facility] CHARGE DISPOSITION & COMMUNICATION FOLLOW UP 4 WEEKS (REASON: NEW MED) ELECTRONICALLY SIGNED BY HERLINDA FERNANDEZ ON 10/17/2020 AT 08:25 AM EDT DISCLAIMER : THIS IS A VISIT SUMMARY EXTRACTED FROM THE [employer] CHART. IT IS NOT A COPY OF THE [employer] PROGRESS NOTE. DONALDOD
== END ==
LOC: M PAIN 08:30
PROVIDERS: ATTEND Family Medicine
DX: M50.10 Cervical disc disorder with radiculopathy, unspecified cervical region (principal); M51.17 Intervertebral disc disorders with radiculopathy, lumbosacral region; Z79.891 Long term (current) use of opiate analgesic; I25.10 Atherosclerotic heart disease of native coronary artery without angina pectoris; E78.5 Hyperlipidemia, unspecified; G43.909 Migraine, unspecified, not intractable, without status migrainosus; M47.816 Spondylosis without myelopathy or radiculopathy, lumbar region; I10 Essential (primary) hypertension; E55.9 Vitamin D deficiency, unspecified; F17.210 Nicotine dependence, cigarettes, uncomplicated; Z79.899 Other long term (current) drug therapy; Z88.2 Allergy status to sulfonamides; Z88.8 Allergy status to other drugs, medicaments and biological substances

== ENCOUNTER → 2020-10-16 | Outpatient (CLI) | payer MEDICARE, OTHER | LOC: M LABSMTC 10:53 | PROVIDERS: ATTEND Anesthesiology | DX: Z01.812 Encounter for preprocedural laboratory examination (principal); Z20.822 Contact with and (suspected) exposure to COVID-19 ==

== ENCOUNTER → 2020-10-18 | Outpatient (CLI) | payer MEDICARE, BC, OTHER ==
[~2020-10-18] MED LIST changes: +GLUCAGON INJ 1MG VIAL As Ordered ONE; +ISOVUE-370 76% 100ML VIAL As Ordered ONE; +VoLumen 0.1% SUSPENSION 450ML BOTTLE As Ordered ONE
--- NOTE | 2020-10-18 17:00 | REP ---
INDICATION: IRON DEFICIENCY ANEMIA COMPARISON: Noncontrast CT 09/23/2020. TECHNIQUE: CT Scan of the abdomen and pelvis was performed with intravenous administration of 100 cc of Isovue 370, and volumen oral contrast. Sagittal and coronal reconstruction images are performed. FINDINGS: Lung bases: There are mild bibasilar fibrotic changes. Liver: Normal Gallbladder: Gallstones are seen in a nondistended gallbladder. Spleen: Normal. Adrenals: Normal. Pancreas: Normal. Kidneys: There is cortical thinning and scarring in the lower pole the right kidney. 1 cm cyst in the mid right kidney. Small and large bowel: Unremarkable. There is no bowel wall thickening or inflammation identified. There is a small hiatal hernia. There are a few sigmoid diverticula. Free fluid: None. Abdominal aorta: No aneurysm or dissection. There is ectasia of the distal abdominal aorta with maximum AP diameter 2.6 cm, with moderate atherosclerotic plaque and calcification. Adenopathy: None. Appendix: Not inflamed. Osseous structures: Unremarkable. Pelvis: No mass. IMPRESSION: Gallstones again seen in the gallbladder. No evidence of significant bowel pathology as discussed above. <Electronically signed by Jp Sharp > 10/18/20 [id number]
== END ==
LOC: M RAD 08:14
PROVIDERS: ATTEND Internal Medicine Gastroenterology
DX: D50.9 Iron deficiency anemia, unspecified (principal)
CPT/HCPCS: 74177; J1610; Q9967

== ENCOUNTER 2020-10-21 11:25 | Day surgery (SDC) | payer MEDICARE, BC, OTHER ==
[~2020-10-21] VITALS: Ht 162.6 cm; Wt 83.2 kg
[~2020-10-21 11:25] MED LIST changes: -GLUCAGON INJ 1MG VIAL As Ordered ONE; -ISOVUE-370 76% 100ML VIAL As Ordered ONE; +NS 1,000 ML IV ONE; -VoLumen 0.1% SUSPENSION 450ML BOTTLE As Ordered ONE
[2020-10-21] MEDS ORDERED: fentaNYL 100 MCG/2 ML INJECTION (J3010) As Ordered ONE (12:26)
[2020-10-21] MEDS ORDERED: LIDOCAINE 2% MDV 20ML VIAL As Ordered ONE (12:26)
[2020-10-21] MEDS ORDERED: propofoL 200 MG/20 ML VIAL As Ordered ONE (12:26)
[2020-10-21] MEDS ORDERED: PHENYLephrine 500MCG 5ML (100MCG/ML) SYRINGE As Ordered ONE (12:51)
--- NOTE | 2020-10-21 12:57 | ROOR ---
Patient Name: Marly Hurt Procedure Date: 10/21/2020 12:36 PM Date of : 1955 Age: 64 Room: [facility] Gender: Female Note Status: Finalized Procedure: Upper GI endoscopy Indications: Acute post hemorrhagic anemia, Iron deficiency anemia Providers: Jonathan Dill MD Referring MD: ROMAN Engel Requesting Provider: Medicines: Monitored Anesthesia Care Complications: No immediate complications. Procedure: Pre-Anesthesia Assessment: - The heart rate, respiratory rate, oxygen saturations, blood pressure, adequacy of pulmonary ventilation, and response to care were monitored throughout the procedure. The Endoscope was introduced through the mouth, and advanced to the third part of duodenum. The upper GI endoscopy was accomplished without difficulty. The patient tolerated the procedure well. Findings: A single 5 mm angioectasia without bleeding was found in the second portion of the duodenum. Coagulation for hemostasis using argon plasma at 0.5 liters/minute and 20 ruiz was successful. The exam was otherwise without abnormality. Biopsies for histology were taken with a cold forceps in the second portion of the duodenum for evaluation of celiac disease. Impression: - A single non-bleeding angioectasia in the duodenum. Treated with argon plasma coagulation (APC). - The examination was otherwise normal. - Biopsies were taken with a cold forceps for evaluation of celiac disease. Recommendation: - Observe patient's clinical course. - Continue present medications. Procedure Code(s): --- Professional --- 89058, 59, Esophagogastroduodenoscopy, flexible, transoral; with control of bleeding, any method 00509, Esophagogastroduodenoscopy, flexible, transoral; with biopsy, single or multiple Diagnosis Code(s): --- Professional --- D50.9, Iron deficiency anemia, unspecified D62, Acute posthemorrhagic anemia K31.819, Angiodysplasia of stomach and duodenum without bleeding CPT copyright 2019 [employer]. All rights reserved. The codes documented in this report are preliminary and upon director non profit review may be revised to meet current compliance requirements. Jonathan Dill MD Jonathan Dill MD 10/21/2020 12:56:53 PM Electronically signed by Jonathan Dill MD Number of Addenda: 0 Note Initiated On: 10/21/2020 12:36 PM Estimated Blood Loss: Estimated blood loss: none.
[2020-10-21] MEDS ORDERED: ePHEDrine SULFATE 25 MG/5 ML(5MG/ML) SYRINGE As Ordered ONE (12:58)
--- NOTE | 2020-10-21 13:26 | ROOR ---
Patient Name: Marly Hurt Procedure Date: 10/21/2020 12:37 PM Date of : 1955 Age: 64 Room: [facility] Gender: Female Note Status: Finalized Procedure: Colonoscopy Indications: Acute post hemorrhagic anemia, Iron deficiency anemia. Previous colonoscopy with poor preparation. Providers: Jonathan Dill MD Referring MD: ROMAN Engel Requesting Provider: Medicines: Monitored Anesthesia Care Complications: No immediate complications. Procedure: Pre-Anesthesia Assessment: - The heart rate, respiratory rate, oxygen saturations, blood pressure, adequacy of pulmonary ventilation, and response to care were monitored throughout the procedure. The Colonoscope was introduced through the anus and advanced to 10 cm into the ileum. The colonoscopy was performed without difficulty. The patient tolerated the procedure well. The quality of the bowel preparation was good. Findings: The perianal and digital rectal examinations were normal. Four sessile polyps were found in the sigmoid colon and hepatic flexure. The polyps were 4 to 5 mm in size. These polyps were removed with a cold snare. Resection and retrieval were complete. Small Internal Hemorrhoids. The exam was otherwise normal throughout the examined colon. The terminal ileum appeared normal. Impression: - Four 4 to 5 mm polyps in the sigmoid colon and at the hepatic flexure, removed with a cold snare. Resected and retrieved. - Small Internal Hemorrhoids. - The colon is otherwise normal. - The examined portion of the ileum was normal. Recommendation: - Repeat colonoscopy in 5 years for surveillance. - To visualize the small bowel, perform video capsule endoscopy at the next available appointment. - My office will call you in the next few days to set you up for this study/exam. Procedure Code(s): --- Professional --- 47494, Colonoscopy, flexible; with removal of tumor(s), polyp(s), or other lesion(s) by snare technique Diagnosis Code(s): --- Professional --- D50.9, Iron deficiency anemia, unspecified D62, Acute posthemorrhagic anemia K63.5, Polyp of colon CPT copyright 2019 [employer]. All rights reserved. The codes documented in this report are preliminary and upon child welfare caseworker review may be revised to meet current compliance requirements. Jonathan Dill MD Jonathan Dill MD 10/21/2020 1:25:49 PM Electronically signed by Jonathan Dill MD Number of Addenda: 0 Note Initiated On: 10/21/2020 12:37 PM Estimated Blood Loss: Estimated blood loss: none.
[2020-10-21 13:45] VITALS: BP 107/71
== END 2020-10-21 14:10 | disposition home or self-care (01) ==
LOC: M OPP 11:25
PROVIDERS: ATTEND Internal Medicine Gastroenterology
DX: K63.5 Polyp of colon (principal); D62 Acute posthemorrhagic anemia; D50.9 Iron deficiency anemia, unspecified; K31.819 Angiodysplasia of stomach and duodenum without bleeding; F17.210 Nicotine dependence, cigarettes, uncomplicated; Z79.899 Other long term (current) drug therapy; Z88.2 Allergy status to sulfonamides; Z95.5 Presence of coronary angioplasty implant and graft
CPT/HCPCS: 43239; 43255; 45385; 88305; J2370; J3010

== ENCOUNTER → 2020-11-11 | Outpatient (CLI) | payer MEDICARE, OTHER ==
[~2020-11-11] MED LIST changes: +FERR1TAB8 PO; +METO1TAB87 PO; -NS 1,000 ML IV ONE
--- NOTE | 2020-11-15 03:08 | ECWPNPC ---
PATIENT NAME: ZENA WELLS : 1955 GENDER: FEMALE VISIT DATE: 11/11/2020 DISCHARGE DATE: 11/11/20 1026 VISIT LOCKED DATE TIME: PHYSICIAN: VIRGILIO DE LOS SANTOS PHYSICIAN PAGER NO: ACTIVE RESOURCE: VIRGILIO DE LOS SANTOS REASON FOR APPOINTMENT 1. NEW MED HISTORY OF PRESENT ILLNESS GENERAL: HPI 64-YEAR-OLD FEMALE IN FOR CHRONIC PAIN FOLLOW-UP. AT LAST CLINIC VISIT PATIENT WAS STARTED ON TRAMADOL AND LYRICA AND SHE ADMITS TODAY THAT THIS HAS BEEN BENEFICIAL HOWEVER SHE STILL EXPERIENCES NUMBNESS AND TINGLING IN HER LOWER EXTREMITIES. SHE RATES HER PAIN CURRENTLY AT A 3 OUT OF 10.. -. FALL RISK SCREENING: SCREENING : NO FALLS REPORTED IN THE LAST YEAR. PAIN SCREENING: PATIENT HAS A COMPLAINT OF ACUTE OR CHRONIC PAIN :YES LOCATION OF PAIN: LEFT SIDE OF NECK, BILATERAL LEGS THROUGH TO FEET INTENSITY OF PAIN (SCALE OF 1 TO 10):3 WHAT DOES YOUR PAIN FEEL LIKE:OTHER "NUMBNESS AND TINGLING," "IRRITIATING" DURATION:INTERMITTENT PAIN IS INCREASED BY:ACTIVITIES, PROLONGED STANDING PAIN IS DECREASED BY:USE OF PAIN MEDICATIONS PLAN/GOALS/TREATMENT/INTERVENTION/FOLLOW UP:SEE PLAN NURSING NOTE: -. PAIN CENTER INTAKE QUESTIONS: DO YOU HAVE A HISTORY OF MRSA? :NO DO YOU TAKE A BLOOD THINNERS? :NO BABY ASPIRIN DO YOU HAVE ANY BLEEDING DISORDERS? :YES ANEMIA. PATIENT IS BEING WORKED UP FOR BLEEDING DISORDER BY DR. ROSE AT THIS TIME. ANY NEW NUMBNESS OR WEAKNESS IN YOUR LEGS OR ARMS? :NO ANY PACEMAKER,DEFIBRILLATOR, OR DORSAL COLUMN STIMULATOR? :NO DO YOU HAVE ANY RASHES OR OPEN SORES? :NO ARE YOU ALLERGIC TO IV DYE? :NO ARE YOU DIABETIC? :NO ANY NEW PROBLEMS WITH YOUR MEDICATIONS? :NO HAVE YOU RECEIVED A VACCINE IN THE PAST 30 DAYS? :NO DO YOU PLAN TO RECEIVE A VACCINE IN THE NEXT 21 DAYS? :NO DO YOU NEED ANY PRESCRIPTION? :NO DO YOU TAKE ANY IMMUNOSUPPRESSIVE MEDICATIONS? :NO IS THERE A CHANCE YOU COULD BE ? :NO ARE YOU BREAST FEEDING? :NO CURRENT MEDICATIONS TAKING LYRICA 75 MG CAPSULE 1 CAPSULE ORALLY TWICE DAILY TAKING TRAMADOL HCL 50 MG TABLET 1 TABLET NEEDED ORALLY DAILY PRN PAIN TAKING BUPROPION HCL ER (XL) 150 MG TABLET EXTENDED RELEASE 24 HOUR TAKE ONE TABLET BY MOUTH EVERY MORNING TAKING FAMOTIDINE 40 MG TABLET 1/2 TABLET ORALLY TWICE A DAY TAKING ROSUVASTATIN CALCIUM 40 MG TABLET TAKE ONE TABLET BY MOUTH AT BEDTIME ORAL TAKING VITAMIN D-3 125 MCG (5000 UT) TABLET DIRECTED ORALLY TAKING OMEPRAZOLE 40 MG CAPSULE DELAYED RELEASE 1 CAPSULE 30 MINUTES BEFORE MORNING MEAL ORALLY ONCE A DAY NOT-TAKING IRON (FERROUS SULFATE) 325 (65 FE) MG TABLET 1 TABLET ORALLY ONCE A DAY, NOTES: HAS HAD TO STOP FOR COLONOSCOPY 10/14/2020 NOT-TAKING BUPROPION HCL ER (XL) 150 MG TABLET EXTENDED RELEASE 24 HOUR TAKE ONE TABLET BY MOUTH EVERY MORNING UNKNOWN POTASSIUM CHLORIDE OSCAR ER 20 MEQ TABLET EXTENDED RELEASE TAKE ONE TABLET BY MOUTH TWICE A DAY ORAL UNKNOWN EXCEDRIN MIGRAINE 250-250-65 MG TABLET 2 TABLETS ORALLY ONCE A DAY UNKNOWN ASPIRIN 81 MG TABLET 1 TABLET ORALLY ONCE A DAY UNKNOWN LOSARTAN POTASSIUM 100 MG TABLET TAKE ONE TABLET BY MOUTH EVERY DAY UNKNOWN CHLORTHALIDONE 25 MG TABLET TAKE ONE TABLET BY MOUTH EVERY DAY UNKNOWN AMLODIPINE BESYLATE 2.5 MG TABLET TAKE ONE TABLET BY MOUTH EVERY DAY MEDICATION LIST REVIEWED AND RECONCILED WITH THE PATIENT PAST MEDICAL HISTORY CORONARY ARTERY DISEASE - S/P INF-POSTERIOR WALL MA 11/2003 - COMPLICATED BY SEVERE HYPOTENSION, BRADYCARDIA, RBBB AND NON-SUSTAINED VT, S/P CATH AND PTCA WITH 95% STENOSIS RCA S/P CAT, EF 60 - 65% -() [facility], PREVIOUSLY FOLLOWED BY - STRESS TEST 04/2015 - MILDLY INCREASED RISK, STRESS SPECT 05/2018 - SLIGHTLY LESS RCA DISTRIBUTION INDUCIBLE OCCLUSION, MILDLY INCREASED RISK HYPERLIPIDEMIA MIGRAINES OSTEOARTHRITIS - LUMBAR SPINE HISTORY OF KIDNEY STONES HYPERTENSION 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 HAS EXCERCISES TO DO WHEN IT FLARES UP. HAS RADICULOPATHY WITH WALKING ON UNEVEN SURFACES OR DISTANCES - HANDICAP PARKING PERMIT PAPERWORK GIVEN 08/2019 LOW DOSE LUNG CANCER SCREENING CT - 2016 ECHO 11/2018 - MODERATE CALCIFIC AORTIC STENOSIS, MILD LVH WITH HYPERKINETIC WALL MOTION INTERNAL BLEEDING "SPIDER VEINS" (DR. ROSE) WITH REFERRAL TO STRONG ALLERGIES SULFA (FOR ALLERGY USE ONLY): RASH - ALLERGY LIPITOR: JOINT PAIN - ALLERGY LISINOPRIL: JOINT PAIN - ALLERGY CHANTIX: BAD DREAMS - SIDE EFFECTS SURGICAL HISTORY ENDOMETRIOSIS 1993 HEART STENT 2003 COLONOSCOPY 09/2020 EGD 09/2020 COLONOSCOPY WITH POLYPS 10/2020 FAMILY HISTORY FATHER: 72 YRS, MA IN 50, DIAGNOSED WITH DIABETES MOTHER: ALIVE 89 YRS, HYPERTENSION PATERNAL GRAND MOTHER: , DIABETES 1 BROTHER(S) , 1 SISTER(S) - HEALTHY. 5 SON(S) , 1 DAUGHTER(S) - HEALTHY. SOCIAL HISTORY GENERAL: TOBACCO USE ARE YOU A:CURRENT SMOKER ARE YOU INTERESTED IN QUITTING?READY TO QUIT USING WELLBUTRIN HOW MANY CIGARETTES A DAY DO YOU SMOKE?6-10 HOW SOON AFTER YOU WAKE UP DO YOU SMOKE YOUR FIRST CIGARETTE?6-30 MIN HOW OFTEN DO YOU SMOKE CIGARETTES?EVERY DAY PATIENT COUNSELED ON THE DANGERS OF TOBACCO USE AND URGED TO QUIT:03/14/2018 LATEX QUESTIONNAIRE LATEX ALLERGY : HAVE YOU EVER DEVELOPED ANY TYPE OF REACTION AFTER HANDLING LATEX PRODUCTS SUCH RUBBER GLOVES, CONDOMS, DIAPHRAGMS, BALLOONS, SOCKS, OR UNDERWEAR?NO LATEX ALLERGY : HAVE YOU EVER DEVELOPED ANY TYPE OF REACTION DURING OR AFTER DENTAL APPOINTMENT, VAGINAL/RECTAL EXAMINATION, SURGICAL PROCEDURE, OR ANY OTHER EXPOSURE?NO LATEX RISK : HAVE YOU EVER HAD ANY DIFFICULTY BREATHING OR HIVES AFTER EATING OR HANDLING ANY FRUITS, OR VEGETABLES; SUCH KIWI, BANANAS, STONE FRUITS, OR CHESTNUTSNO LATEX RISK : DO YOU HAVE A PREVIOUS PERSONAL HISTORY OF MORE THAN NINE SURGERIES, SPINA BIFIDA, OR REPEATED CATHERIZATIONS? NO LATEX RISK : ARE YOU FREQUENTLY EXPOSED TO LATEX PRODUCTS IN YOUR OCCUPATION?NO DATE ASKED : 11/11/2020 ALCOHOL USE: RARELY. LUNG CANCER SCREENING SMOKING STATUS:CURRENT SMOKER IS THE PATIENT BETWEEN THE AGE OF 55 AND 75?YES HAS THE PATIENT EVER BEEN DIAGNOSED WITH LUNG CANCER?NO PACK YEARS = NUMBER OF PACKS PER DAY SMOKED X NUMBER OF YEARS SMOKED:30 CREATE REFERRAL:GENERATE AND CREATE REFERRAL TO THE ONCOLOGY NURSE NAVIGATOR (SMP) LISTING USING THE LDCT SCAN PROCEDURE BMI CARE GOAL FOLLOW-UP ABOVE NORMAL BMI FOLLOW-UPDIETARY MANAGEMENT EDUCATION, GUIDANCE, AND COUNSELING ALCOHOL SCREENING DID YOU HAVE A DRINK CONTAINING ALCOHOL IN THE PAST YEAR?YES HOW OFTEN DID YOU HAVE SIX OR MORE DRINKS ON ONE OCCASION IN THE PAST YEAR?NEVER (0 POINTS) HOW MANY DRINKS DID YOU HAVE ON A TYPICAL DAY WHEN YOU WERE DRINKING IN THE PAST YEAR?1 OR 2 (0 POINTS) HOW OFTEN DID YOU HAVE A DRINK CONTAINING ALCOHOL IN THE PAST YEAR?MONTHLY OR LESS (1 POINT) POINTS1 INTERPRETATIONNEGATIVE RECREATIONAL DRUG USE DRUG USE?NO CAFFEINE 2-5/DAY. SEXUAL HX HAD SEX IN THE LAST 12 MONTHS (VAGINAL, ORAL, OR ANAL)?NO LMP:AGE 43 HAVE YOU EVER HAD AN STD?NO LANGUAGE LANGUAGES SPOKEN:POLISH LEARNING BARRIERS / SPECIAL NEEDS CHANGE FROM LAST VISIT?NO BARRIERS TO LEARNING?NO HEARING IMPAIRED?YES PARTIALLY TONE DEAF. VISION IMPAIRED?NO COGNITIVELY IMPAIRED?NO READINESS TO LEARN?YES LEARNING PREFERENCES?YES :BOOKLETS, HANDOUTS LEARNING CAPABILITIES PRESENT?YES EMOTIONAL BARRIERS?NO SPECIAL DEVICES?NO METALLURGY LABORATORY TECHNICIAN NEEDED?NO DOMESTIC VIOLENCE STATUS: DO YOU FEEL SAFE IN YOUR ENVIRONMENT?YES OCCUPATION: RETIRED. DIET: REGULAR. EXERCISE: NO REGULAR EXERCISE. MARITAL STATUS: , MOTHER OF 10, 6 BIOLOGICAL, 4 STEPCHILDREN. HOSPITALIZATION/MAJOR DIAGNOSTIC PROCEDURE SURGERY KIDNEY INFECTION 2003 MYOCARDIAL INFARCTION 2004 CHILDBIRTH X8 ANEMIA 09/2020 REVIEW OF SYSTEMS CONSTITUTIONAL: ANY RECENT FEVER NO . CHILLS NO . WEIGHT CHANGE OF UNKNOWN REASONS NO . GASTROENTEROLOGY: NEW UNEXPLAINABLE CHANGES IN BOWEL CONTROL NO . CONSTIPATION NO . GENITOURINARY: ANY NEW CHANGE IN BLADDER CONTROL? NO . NEUROLOGY: NEW ONSET DIZZINESS OR NEUROLOGICAL CHANGES NOT MENTIONED NO . NEW NUMBNESS OR PAIN PATTERNS NOT MENTIONED AND PERTINENT TO TODAY'S VISIT NO . CARDIOLOGY: NEW CHEST PRESSURE NO . PATIENT DENIES NO . RESPIRATORY: UNEXPLAINABLE COUGH NO . NEW SHORTNESS OF BREATH NO . VITAL SIGNS WT 185.4 LBS, HT 5'5", BMI 30.85 INDEX, BP 139/82 MM HG, HR 96 /MIN, RR 18 /MIN, TEMP 97.0 F, OXYGEN SAT % 99% RA, SAFE IN ENV? (Y/N) YES, REVIEWED BY: Ken ORELLANA RN 1002. EXAMINATION GENERAL EXAMINATION: GENERALNO ACUTE DISTRESS, WELL NOURISHED AND HYDRATED. PSYCHAPPROPRIATE MOOD AND AFFECT . LUNGS:CLEAR TO AUSCULTATION BILATERALLY, NO WHEEZES, RHONCHI, RALES. HEART:NO MURMURS, REGULAR RATE AND RHYTHM. ASSESSMENTS INTERVERTEBRAL DISC DISORDER WITH RADICULOPATHY OF LUMBOSACRAL REGION - M51.17 (PRIMARY) TREATMENT INTERVERTEBRAL DISC DISORDER WITH RADICULOPATHY OF LUMBOSACRAL REGION REFILL LYRICA CAPSULE, 75 MG, 1 CAPSULE, ORALLY, THREE TIMES DAILY, 30 DAYS, 90 REFILL TRAMADOL HCL TABLET, 50 MG, 1 TABLET NEEDED, ORALLY, DAILY PRN PAIN, 30 DAYS, 30 NOTES: 64-YEAR-OLD FEMALE IN FOR CHRONIC PAIN FOLLOW-UP. GIVEN PRESENTING SYMPTOMS RECOMMEND INCREASING LYRICA TO 3 TIMES A DAY DOSING WITH FOLLOW-UP IN 2 MONTHS TO DETERMINE EFFICACY OF TREATMENT. PATIENT HAS EXPRESSED UNDERSTANDING OF AND WAS IN AGREEMENT WITH TREATMENT PLAN. GIVEN TIME TO ASK QUESTIONS AND EXPRESS CONCERNS. ISTOP REGISTRY REVIEWED AND DEMONSTRATES COMPLLIANCE. (REF #[id number] ) BRINGS IN MEDICATIONS WHICH IS APPROPRIATE FOR WHAT WAS DISPENSED. RECENT URINE TOXICOLOGY REVIEWED. NO UNAUTHORIZED MEDICATIONS. NO ILLICIT SUBSTANCES AND PRESCRIBED MEDICATIONS WERE PRESENT. PROCEDURE CODES FA211 ESTABILISHED PATIENT [facility] CHARGE DISPOSITION & COMMUNICATION FOLLOW UP 2 MONTHS (REASON: LOW BACK PAIN ) ELECTRONICALLY SIGNED BY HERLINDA FERNANDEZ ON 11/14/2020 AT 08:09 AM EDT DISCLAIMER : THIS IS A VISIT SUMMARY EXTRACTED FROM THE [employer] CHART. IT IS NOT A COPY OF THE [employer] PROGRESS NOTE. JAMEL
== END ==
LOC: M PAIN 09:15
PROVIDERS: ATTEND Family Medicine
DX: M51.17 Intervertebral disc disorders with radiculopathy, lumbosacral region (principal); I25.10 Atherosclerotic heart disease of native coronary artery without angina pectoris; I25.2 Old myocardial infarction; E78.5 Hyperlipidemia, unspecified; G43.909 Migraine, unspecified, not intractable, without status migrainosus; M47.816 Spondylosis without myelopathy or radiculopathy, lumbar region; I10 Essential (primary) hypertension; E55.9 Vitamin D deficiency, unspecified; F17.210 Nicotine dependence, cigarettes, uncomplicated; Z79.891 Long term (current) use of opiate analgesic; Z79.899 Other long term (current) drug therapy; Z88.2 Allergy status to sulfonamides; Z88.8 Allergy status to other drugs, medicaments and biological substances

== ENCOUNTER 2020-11-13 19:23 | Inpatient (IN) | payer MEDICARE, BC, OTHER ==
[~2020-11-13] VITALS: Ht 162.6 cm; Wt 81.6 kg
[~2020-11-13 19:23] MED LIST changes: -FERR1TAB8 PO; -METO1TAB87 PO
[2020-11-13 20:15] LABS: VENOUS BASE EXCESS -1.1 (-2.0-2.0); VENOUS HCO3 21.8 MEQ/L (23.0-27.0); VENOUS O2 SATURATION 98.3 % (60.0-80.0); VENOUS PARTIAL PRESSURE CO2 29.7 mmHg (38.0-50.0); VENOUS PH 7.484 UNITS (7.330-7.430); VENOUS STANDARD HCO3 23.6 MEQ/L; VENOUS TOTAL CO2 22.7 MEQ/L (24.0-28.0)
[2020-11-13 20:18] LABS: BASO # 0.1 10^3/uL (0.0-0.2); BASO % 1.1 % (0.0-1.0); EOS # 0.3 10^3/uL (0.0-0.5); EOS % 3.3 % (0.0-3.0); HEMATOCRIT 27.5 % (36.0-47.0); HEMOGLOBIN 8.2 g/dl (12.0-15.5); LYMPH # 2.6 10^3/uL (1.5-5.0); LYMPH % 26.9 % (24.0-44.0); MEAN CORPUSCULAR HEMOGLOBIN 27.1 pg (27.0-33.0); MEAN CORPUSCULAR HGB CONC 29.8 g/dl (32.0-36.5); MEAN CORPUSCULAR VOLUME 90.8 fl (80.0-96.0); MONO # 0.7 10^3/uL (0.0-0.8); MONO % 6.9 % (2.0-8.0); NEUTROPHILS % 61.4 % (36.0-66.0); PLATELET COUNT, AUTOMATED 317 10^3/uL (150-450); RED BLOOD COUNT 3.03 10^6/uL (4.00-5.40); WHITE BLOOD COUNT 9.8 10^3/uL (4.0-10.0)
[2020-11-13 20:29] LABS: INR 0.99; PROTHROMBIN TIME 13.3 SECONDS (12.5-14.3)
[2020-11-13 20:30] LABS: PARTIAL THROMBOPLASTIN TIME 28.1 SECONDS (24.2-38.5)
[2020-11-13 20:49] LABS: ABG BASE EXCESS -2.3 (-2.0-2.0); ABG HCO3 21.7 MEQ/L (22.0-26.0); ABG O2 SATURATION 98.1 % (95.0-99.0); ABG PARTIAL PRESSURE CO2 33.9 mmHg (35.0-45.0); ABG PARTIAL PRESSURE O2 115.1 mmHg (75.0-100.0); ABG STANDARD HCO3 22.6 MEQ/L (22.0-26.0); ABG TOTAL CO2 22.8 MEQ/L (23.0-31.0); ABG pH (ARTERIAL) 7.425 UNITS (7.350-7.450)
[2020-11-13 20:51] LABS: ALBUMIN 3.5 GM/DL (3.2-5.2); ALT/SGPT 18 U/L (12-78); BILIRUBIN,DIRECT < 0.1 MG/DL (0.0-0.2); BILIRUBIN,TOTAL 0.4 MG/DL (0.2-1.0); BLOOD UREA NITROGEN 21 MG/DL (7-18); CALCIUM LEVEL 8.7 MG/DL (8.8-10.2); CARBON DIOXIDE LEVEL 20 MEQ/L (21-32); CHLORIDE LEVEL 111 MEQ/L (98-107); CK-MB VALUE MASS 1.7 NG/ML (<3.6); CPK CREATINE PHOSPHOKINASE 148 U/L (26-192); CREATININE FOR GFR 0.77 MG/DL (0.55-1.30); GLOMERULAR FILTRATION RATE > 60.0 (>45); GLUCOSE, FASTING 121 MG/DL (70-100); LIPASE 199 U/L (73-393); MB/CK RELATIVE INDEX 1.15 (< OR =4); NT-PRO BNP 891 PG/ML (<125); POTASSIUM SERUM 4.4 MEQ/L (3.5-5.1); SODIUM LEVEL 140 MEQ/L (136-145); THYROXINE (T4) 7.3 UG/DL (4.5-12.0); TOTAL PROTEIN 7.1 GM/DL (6.4-8.2); TROPONIN I 0.04 NG/ML (< 0.10)
--- NOTE | 2020-11-13 22:39 | REPVR ---
PROCEDURE INFORMATION: Exam: XR Chest Exam date and time: 11/13/20 (7:55pm) Age: 64 years old Clinical indication: Cough and dyspnea TECHNIQUE: Imaging protocol: Portable CXR Views: 1 view COMPARISON: Portable CXR of 09/20/20 FINDINGS: Comparison is made with a portable CXR done on 09/20/20. Stable heart size. Aortic knob calcifications again seen. Bibasilar interstitial disease, more prominent at the right lung base. No dense consolidation. No masses. No significant pleural effusions. The upper lung zones remain clear. No pneumothorax. IMPRESSION: Bibasilar interstitial disease (not present 2 months ago). No consolidation. No significant pleural effusions. Suspect bibasilar interstitial pneumonia, eg. Follow-up is suggested. Electronically signed by: Conchita Reyes On 11/13/2020 22:39:45 PM
[2020-11-13] MEDS ORDERED: LevoFLOXacin 750 MG TABLET PO ONE (23:00)
[2020-11-13] MEDS ORDERED: ISOVUE-370 76% 100ML VIAL As Ordered ONE (23:01)
[2020-11-13 23:09] LABS: D-DIMER QUANT 458.68 ng/ml (<500)
--- NOTE | 2020-11-13 23:11 | HPEPDOC ---
[facility] Medical History & Physical Date of Admission Nov 13, 2020 Date of Service: Nov 13, 2020 History and Physical CHIEF COMPLAINT: Weakness HISTORY OF PRESENT ILLNESS: 64F PMHx CAD s/p stenting, , Left subclavian steal syndrome, HPpEF, bradycardia, HTN, obesity, who presents to the ED because of a 2 day history of weakness since Saturday. She tells me she's been progressively feeling weaker and tonight she felt that when she was short of breath just while eating previously she was short of breath with exertion. Upon arrival patient was saturating in the mid 80s and she was placed on 2 L of oxygen by nasal cannula and has since then improved and saturating well over 92% on room air. She says she still feels very weak but is not short of breath at this time. D-dimer done in the emergency department was negative. She does endorse continuing to smoke half pack per day for a long time. Patient denies any cough or sputum production denies any fevers or chills denies chest pain. Chest x-ray in the emergency department suggested bibasilar interstitial pneumonia. Patient does not have leukocytosis or fever at this time. In the emergency department patient was found to have be anemic hemoglobin is 8.2, her last hemoglobin 1 month ago on October 13 was 11.7. Patient does have a known history of GI bleeding and follows with Dr. Flor. She had recently performed endoscopy last week with him. I reviewed the procedure note which shows 4 polyps ranging in size between 4-5 mm in the sigmoid colon at the hepatic flexure were removed with cold snare. Also small internal hemorrhoids. Reports indicates colon Is otherwise normal. EGD shows a single nonbleeding angiectasia in the duodenum treated with argon plasma coagulation. The examination was otherwise normal. PAST MEDICAL/SURGICAL HISTORY: Coronary artery disease status post stenting 2004 HPpEF Bradycardia Hypertension Hyperlipidemia Nephrolithiasis Lumbar spine or sore arthritis Chronic back pain follows with pain management Aortic stenosis Left subclavian steal syndrome Migraine headaches Vitamin D deficiency Exploratory laparotomy for endometriosis 1992 SOCIAL HISTORY: Endorses alcohol use but only socially and infrequently Endorses smoking half a pack per day unable to tell me for how long tells me for a very long time Denies illicit drug use FAMILY HISTORY: Reviewed and none contributory to this admission ALLERGIES: Please see below. REVIEW OF SYSTEMS: 10 point review of systems complete all negative otherwise stated in HPI HOME MEDICATIONS: Please see below. PHYSICAL EXAMINATION: Constitutional: Awake and alert, in no apparent distress ENT: Sclera are clear. Mucosa is moist. Respiratory: Lungs CTA bilaterally no crackles or wheezing appreciated. No respiratory distress. No use of accessory muscles. Saturating 97% on RA. Able to converse in full sentences without appearing short of breath. Cardiovascular: Regular rate and rhythm. Faint murmur. Gastrointestinal: Abdomen is soft, non distended, non tender, BS present. Musculoskeletal: 1+ pitting bilateral lower extremity edema, tells me this is her baseline Neurologic: No focal neurological deficit. Mental Status: A&O x3, normal affect Skin: No visible rashes LABORATORY DATA: See below. IMAGING: See chart MICROBIOLOGY: Please see below. ASSESSMENT/PLAN 64F PMHx CAD s/p stenting, , Left subclavian steal syndrome, HPpEF, bradycardia, HTN, obesity, who presents to the ED because of a 2 day history of weakness found to have anemia likely from a GI bleed as well as bilateral interstitial pneumonia. Admitted for further medical workup and management # Weakness in the setting of normocytic anemia and pneumonia: Anemia likely from GI bleed given history of GI bleed in the past. Follows with Dr Dill. Hgb 8.2, her last hemoglobin 1 month ago on October 13 was 11.7. Recent scopes as outlined above. Fu fecal occult blood. Trend HH q6h, Protonix IV twice a day. Sucralfate TID. Ferritin, TIBC. # bilateral interstitial pneumonia: Initially requiring supplemental oxygen 3L which improved her o2 sat form 84% to 92%, she continued to improve and now saturating at 97% on room air. CXR shows bilateral interstitial pneumonia No leukocytosis or fever. D-dimer negative effectively excludes PE. Respiratory viral panel negative. Start IV Abx with doxycycline and ceftriaxone. Fu Procalcitonin. Fu BCx. Fu urine strep, mycoplasma, sputum culture. Incentive spirometry. Albuterol inhaler as needed for wheezing. # CAD w CAT 2003: continue crestor. Not on anti-platelet, which I presume is due to her hx of GI bleeding. Defer decision to start antiplatelet to her PCP/GI # HTN: Patient has a history of hypertension but I do not see any ID hypertensive medications on her medical reconciliation. Currently she is normotensive. # HPpEF from chart review: however no recent echo, patient is not in acute exacerbation. No diuretic on med rec. Faint murmur on exam. Fu Echo. # Smoker: counseled to quit. Declined nicotine patch. # Anxiety/Depression: continue home buproprion # Chronic back pain: resume lyrica and tramadol # HLD: continue crestor # Obesity: BMI 31.8. Complicates care. # DVT prophylaxis: TEDs/SCDs only given possibility of GI bleed A Yousef Hospitalist Vital Signs Vital Signs Date Time Temp Pulse Resp B/P (MAP) Pulse Ox O2 Delivery O2 Flow Rate FiO2 11/13/20 22:30 119/57 (77) 11/13/20 22:23 91 17 98 Room Air 11/13/20 20:23 2.0 11/13/20 20:00 98.9 Laboratory Data Labs 24H Laboratory Tests 2 11/13/20 19:54: Immature Granulocyte % (Auto) 0.4, Neutrophils (%) (Auto) 61.4, Lymphocytes (%) (Auto) 26.9, Monocytes (%) (Auto) 6.9, Eosinophils (%) (Auto) 3.3H, Basophils (%) (Auto) 1.1H, Neutrophils # (Auto) 6.0, Lymphocytes # (Auto) 2.6, Monocytes # (Auto) 0.7, Eosinophils # (Auto) 0.3, Basophils # (Auto) 0.1, Nucleated Red Blood Cells % (auto) 0.0, Prothrombin Time 13.3, Prothromb Time International Ratio 0.99, Activated Partial Thromboplast Time 28.1, D-Dimer, Quantitative 458.68, Blood Gas Bicarbonate Standard 23.6, Venous Blood pH 7.484H, Venous Blood Partial Pressure CO2 29.7L, Venous Blood Partial Pressure O2 113.0H, Venous Blood Total Carbon Dioxide 22.7L, Venous Blood HCO3 21.8L, Venous Blood Oxygen Saturation 98.3H, Venous Blood Base Excess -1.1, Anion Gap 9, Glomerular Filtration Rate > 60.0, Lactic Acid Level 1.3, Calcium Level 8.7L, Total Bilirubin 0.4, Direct Bilirubin < 0.1, Aspartate Amino Transf (AST/SGOT) 33, Alanine Aminotransferase (ALT/SGPT) 18, Alkaline Phosphatase 84, Total Creatine Kinase 148, Creatine Kinase MB 1.7, Creatine Kinase MB Relative Index 1.15, Troponin I 0.04, ED-Wbf-E-Type Natriuretic Peptide 891H, Total Protein 7.1, Albumin 3.5, Albumin/Globulin Ratio 1.0L, Lipase 199, Thyroid Stimulating Hormone (TSH) 3.020, Thyroxine (T4) 7.3 11/13/20 20:35: Blood Gas Bicarbonate Standard 22.6, Arterial Blood pH 7.425, Arterial Blood Pa rtial Pressure CO2 33.9L, Arterial Blood Partial Pressure O2 115.1H, Arterial Blood Total CO2 22.8L, Arterial Blood HCO3 21.7L, Arterial Blood Base Excess - 2.3L, Arterial Blood Oxygen Saturation 98.1 CBC/BMP Laboratory Tests 11/13/20 19:54 Microbiology Microbiology 11/13/20 Respiratory Virus Panel (PCR) (CHRISTAL), Received Pending 11/13/20 Blood Culture, Received Pending 11/13/20 Blood Culture, Received Pending Home Medications Scheduled Bupropion Hcl (Bupropion Xl) 150 Mg Tab.er.24h, 150 MG PO DAILY Ferrous Sulfate (Ferrous Sulfate) 325 Mg Tablet, 325 MG PO DAILY pt states her pcp is decreasing dose. Omeprazole (Omeprazole) 40 Mg Capsule.dr, 40 MG PO DAILY Pregabalin (Lyrica) 75 Mg Capsule, 75 MG PO BID Rosuvastatin Calcium (Rosuvastatin Calcium) 40 Mg Tablet, 40 MG PO QHS Scheduled PRN Tramadol HCl (Tramadol HCl) 50 Mg Tablet, 50 MG PO DAILY PRN for PAIN Allergies Coded Allergies: Sulfa (Sulfonamide Antibiotics) (Verified Allergy, Unknown, 09/20/20) A-FIB/CHADSVASC A-FIB History Current/History of A-Fib/PAF?: No JODEE LEON MD Nov 13, 2020 23:11
[2020-11-13] MEDS ORDERED: MAALOX 30 ML SUSP *UDC PO PRN (23:15)
[2020-11-13] MEDS ORDERED: ALBUTEROL 90 MCG/ACT 8GM HFA INHALER INH PRN (23:15)
[2020-11-13] MEDS ORDERED: MOM 30ML SUSPENSION UDC PO PRN (23:15)
[2020-11-13] MEDS ORDERED: ACETAMINOPHEN TAB 650MG DOSE (2X325MG) PO PRN (23:15)
[2020-11-13] MEDS ORDERED: FERR1TAB8 PO (23:21)
[2020-11-14] VITALS (11 sets, daily range): BP systolic 90–134; BP diastolic 60–77
[2020-11-14] MEDS ORDERED: PANTOPRAZOLE 40MG VIAL (C9113 PER 1) IV SCH
[2020-11-14] MEDS ORDERED: cefTRIAXone SOD 1 GM in D5W MINI-BAG PLUS 50 ML IV SCH ×2
[2020-11-14] MEDS ORDERED: UNRESOLVED CLARIFICATION ENTRY XX SCH (00:01)
[2020-11-14] MEDS: SUCRALFATE 1 GM TAB PO SCH ×2 (00:07→07:06)
[2020-11-14] MEDS ORDERED: ONDANSETRON 4MG/2ML VIAL IV ONE (00:55)
[2020-11-14] MEDS ORDERED: DOXYCYCLINE HYCLATE 100 MG in D5W MINI-BAG PLUS 100 ML IV SCH (01:00)
[2020-11-14] MEDS ORDERED: traMADol 50 MG TAB PO PRN (01:40)
[2020-11-14] MEDS: ROSUVASTATIN 10 MG TAB (CRESTOR) PO SCH ×2 (02:10→20:37)
[2020-11-14 02:16] LABS: FERRITIN 14 NG/ML (8-252); IRON (FE) 56 UG/DL (50-170); PERCENT SATURATION 13.3 % (13.2-45.0); TOTAL IRON BINDING CAPACITY 422 UG/DL (250-450)
[2020-11-14 03:19] LABS: HEMATOCRIT 22.6 % (36.0-47.0); MEAN CORPUSCULAR HGB CONC 29.6 g/dl (32.0-36.5); MEAN CORPUSCULAR VOLUME 91.1 fl (80.0-96.0); PLATELET COUNT, AUTOMATED 229 10^3/uL (150-450); RED BLOOD COUNT 2.48 10^6/uL (4.00-5.40); WHITE BLOOD COUNT 8.2 10^3/uL (4.0-10.0)
[2020-11-14 03:23] LABS: HEMOGLOBIN 6.7 g/dl (12.0-15.5)
[2020-11-14 03:50] LABS: ALT/SGPT 14 U/L (12-78); BILIRUBIN,TOTAL 0.3 MG/DL (0.2-1.0); BLOOD UREA NITROGEN 18 MG/DL (7-18); CARBON DIOXIDE LEVEL 25 MEQ/L (21-32); CHLORIDE LEVEL 111 MEQ/L (98-107); GLOMERULAR FILTRATION RATE > 60.0 (>45); GLUCOSE, FASTING 119 MG/DL (70-100); POTASSIUM SERUM 3.9 MEQ/L (3.5-5.1); SODIUM LEVEL 142 MEQ/L (136-145); TOTAL PROTEIN 5.8 GM/DL (6.4-8.2)
[2020-11-14] MEDS ORDERED: NS 1,000 ML IV SCH (07:30)
[2020-11-14 07:57] LABS: NT-PRO BNP 1079 PG/ML (<125)
[2020-11-14] MEDS ORDERED: ENOXAPARIN 40MG/0.4ML SYRINGE (J1650 PER 10MG) SC SCH (09:00)
[2020-11-14] MEDS: PREGABALIN 75 MG CAP(LYRICA) PO SCH ×2 (09:00→20:38)
[2020-11-14] MEDS: buPROPion **XL** TABLET 150MG (WELLBUTRIN XL) PO SCH (09:01)
[2020-11-14] MEDS: DOCUSATE SODIUM 100MG CAPSULE PO SCH ×2 (09:01→20:37)
[2020-11-14] MEDS: FERROUS SULFATE 325MG TAB PO SCH (09:01)
[2020-11-14 10:35] LABS: HEMATOCRIT 30.2 % (36.0-47.0); HEMOGLOBIN 9.4 g/dl (12.0-15.5)
[2020-11-14] MEDS ORDERED: FUROSEMIDE 40MG/4ML VIAL (J1940) IV ONE (12:00)
--- NOTE | 2020-11-14 12:11 | IPNPDOC ---
Text Note Date of Service The patient was seen on 11/14/20. NOTE Subjective: No any acute events overnight. Patient denied blood in the stool or red blood per rectum. Objective: GENERAL APPEARANCE: NAD HEENT: no scleral icterus, plus JVD, EOMI CARDIOVASCULAR: S1S2 LUNGS: Diminished lung sounds bilaterally ABDOMEN: soft & not tender w palpitation MUSCULOSKELETAL: no cyanosis,+1 LE non pitting edema b/l INTEGUMENT: no generalized pallor NEUROLOGICAL: cranial nerve function from 2-12 intact intact, follows commands, speech not dysarthric Assessment plan 64F PMHx CAD s/p stenting, , Left subclavian steal syndrome, HPpEF, bradycardia, HTN, obesity, who presents to [facility] with generalized weakness. Patient was found to have acute anemia secondary to GI loss. Pneumonia rule out Patient doesn't have cough, sputum, fever. Pro calcitonin negative patient does not have leukocytosis DC antibiotics Acute anemia/GI bleed Secondary to GI bleed On 10/21 patient had endoscopy and colonoscopy, patient was found to have A single non-bleeding angioectasia in the duodenum treated with coagulation. Four 4 to 5 mm polyps in the sigmoid colon and at the hepatic flexure, removed with a cold snare. Resected and retrieved. Small Internal Hemorrhoids. Recently the patient had video capsule endoscopy, she was found to have numerous small vascular ectasias some with active bleeding scattered from distal third portion of duodenum the distal jejunum I talked to Dr. Zabala, he recommended follow-up in the outpatient settings, he will arrange appointment to [facility] for push intestinal enteroscopy Patient received 2 units of blood, hemoglobin 9.4 Continue iron supplementation Acute diastolic CHF BNP is elevated to 1079 DC fluid Cardiac diet I's and O's Lasix IV CAD w CAT 2003 Continue statin Patient is not on the beta blockers. I will start metoprolol tartrate Anxiety/depression Continue home meds Chronic back pain Continue home meds Hypertension Blood pressures under control Patient is not on the any blood pressure medications VS,Fishbone, I+O VS, Fishbone, I+O Laboratory Tests 11/13/20 19:54 11/14/20 03:02 11/14/20 09:57 Vital Signs Date Time Temp Pulse Resp B/P (MAP) Pulse Ox O2 Delivery O2 Flow Rate FiO2 11/14/20 08:00 97.8 78 17 134/77 (96) 98 Room Air 11/13/20 20:23 2.0 I&O- Last 24 Hours up to 6 AM 11/14/20 06:00 Intake Total 329 ml Output Total 1300 ml Balance -971 ml ESSENCE OTTO DO Nov 14, 2020 12:11
[2020-11-14] MEDS: METOPROLOL TART 12.5 MG PER 1/2 TAB PO SCH (12:55)
[2020-11-14] MEDS: OMEPRAZOLE 20 MG CAP PO SCH (12:55)
[2020-11-14 15:08] LABS: HEMATOCRIT 32.3 % (36.0-47.0); HEMOGLOBIN 9.8 g/dl (12.0-15.5)
[2020-11-14] MEDS ORDERED: SLF 3 ML SYR IV PRN (15:50)
[2020-11-14] MEDS: SLF 3 ML SYR IV SCH (20:38)
[2020-11-14 21:17] LABS: HEMATOCRIT 30.7 % (36.0-47.0); HEMOGLOBIN 9.6 g/dl (12.0-15.5)
[2020-11-15] VITALS: BP 94/70
[2020-11-15 02:10] LABS: HEMATOCRIT 30.6 % (36.0-47.0); HEMOGLOBIN 9.4 g/dl (12.0-15.5)
[2020-11-15 04:00] VITALS: BP 106/80
--- NOTE | 2020-11-15 05:08 | ECGEPIP ---
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
[2020-11-15] MEDS: SLF 3 ML SYR IV SCH ×3 (05:56→20:37)
[2020-11-15 07:20] VITALS: BP 114/61
[2020-11-15 08:25] LABS: HEMATOCRIT 34.7 % (36.0-47.0); HEMOGLOBIN 10.5 g/dl (12.0-15.5)
[2020-11-15] MEDS: METOPROLOL TART 12.5 MG PER 1/2 TAB PO SCH (09:14)
[2020-11-15] MEDS: OMEPRAZOLE 20 MG CAP PO SCH (09:14)
[2020-11-15] MEDS: FERROUS SULFATE 325MG TAB PO SCH (09:14)
[2020-11-15] MEDS: PREGABALIN 75 MG CAP(LYRICA) PO SCH ×2 (09:14→20:36)
[2020-11-15] MEDS: buPROPion **XL** TABLET 150MG (WELLBUTRIN XL) PO SCH (09:15)
[2020-11-15] MEDS: DOCUSATE SODIUM 100MG CAPSULE PO SCH ×2 (09:15→20:36)
[2020-11-15] MEDS: FUROSEMIDE 40MG/4ML VIAL (J1940) IV SCH (09:15)
--- NOTE | 2020-11-15 09:55 | ECHO ---
ECHOCARDIOGRAM DATE OF PROCEDURE: 11/14/2020 Age: Gender: Height: 153 cm Weight: 84 kg REFERRING PHYSICIAN: Dr. Jayy العراقي. INDICATION: Cardiac murmur, unspecified. MEASUREMENTS: 2D Measurements: Interventricular septum 1.02 - 2.13 cm Posterior wall 0.91 cm Aortic root 3.3 cm Left atrium 3.5 cm LVOT 2.0 cm Left ventricle diastole 5.4 cm Proximal ascending aorta 3.9 cm Inferior vena cava 1.7 cm Doppler Measurements: Severe aortic stenosis No aortic regurgitation Aortic valve velocity 430 cm/s Peak aortic valve gradient 74 mmHg Mean aortic valve gradient 46 mmHg Aortic valve VTI 101 cm LVOT velocity 62.0 cm/s Very mild mitral regurgitation Mitral E velocity 118 cm/s Mitral A velocity 110 cm/s Mitral deceleration time 156 msec Very mild tricuspid regurgitation Estimated right ventricle systolic pressure 51-56 mmHg Estimated right atrial pressure of 5-10 mmHg No pulmonic regurgitation MITRAL ANNULAR TISSUE DOPPLER E prime septal 6.1 cm/s, E prime lateral 6.0 cm/s DESCRIPTION: Rhythm was sinus. This was a moderately technically difficult echocardiogram. This was a 2D, M-mode, color flow Doppler, and pulsed wave Doppler examination including mitral annular tissue Doppler. CONCLUSIONS: 1. Severe degenerative, calcific aortic valve disease with severe aortic valve stenosis. No aortic regurgitation. 2. Severe focal hypertrophy of the basal anterior interventricular septum. No dynamic LVOT obstruction. Normal LV wall thickness elsewhere with the exception of the inferobasal segment which showed wall thinning. 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 Remaining grace of the left ventricle showed normal wall motion and wall thickening. Normal overall LV systolic function. LVEF of 60% by visual estimate. Grade 2 LV diastolic dysfunction (pseudonormal LV filling pattern). 3. Severe mitral annular calcification. No mitral stenosis. Very mild mitral regurgitation. 4. Mild dilatation of the proximal ascending aorta. 5. Suggestive of moderate elevation of estimated right ventricle systolic pressure. 6. Tiny pericardial effusion without cardiac chamber collapse and without significant respiratory variation of intracardiac velocities. ADDITIONAL COMMENTS AND RECOMMENDATIONS: If patient has symptoms attributable to severe aortic valve stenosis (such as angina, exertional dyspnea, heart failure, or presyncope/syncope), then recommend patient be transferred to a facility that does transaortic valve replacement provided that the patient is a willing candidate.
[2020-11-15 11:11] VITALS: BP 123/74
[2020-11-15] MEDS ORDERED: METO1TAB87 PO (13:56)
[2020-11-15 14:24] LABS: HEMATOCRIT 34.1 % (36.0-47.0); HEMOGLOBIN 10.5 g/dl (12.0-15.5)
[2020-11-15 16:00] VITALS: BP 132/66
[2020-11-15 17:08] LABS: MYCOPLASMA PNEUMONIAE IgG 163 U/mL (0-99); MYCOPLASMA PNEUMONIAE IgM <770 U/mL (0-769)
--- NOTE | 2020-11-15 18:53 | DS.PDOC ---
Discharge Summary General Date of Admission Nov 13, 2020 at 23:14 Date of Discharge 11/15/20 Discharge Summary PROCEDURES PERFORMED DURING STAY: [None]. ADMITTING DIAGNOSES: Pneumonia rule out Acute anemia/GI bleed Acute diastolic CHF CAD w CAT 2003 Anxiety/depression Chronic back pain Hypertension DISCHARGE DIAGNOSES: Pneumonia rule out Acute anemia/GI bleed Acute diastolic CHF CAD w CAT 2003 Anxiety/depression Chronic back pain Hypertension Heyde' syndrome Severe aortic stenosis COMPLICATIONS/CHIEF COMPLAINT: Anemia,Gi Bleeding,Pneumonia. HISTORY OF PRESENT ILLNESS: 64F PMHx CAD s/p stenting, , Left subclavian steal syndrome, HPpEF, bradycardia, HTN, obesity, who presents to [facility] with generalized weakness. Patient was found to have acute anemia secondary to GI loss. HOSPITAL COURSE: During hospital stay following issue addressed Pneumonia rule out Patient doesn't have cough, sputum, fever. Pro calcitonin negative patient does not have leukocytosis DC antibiotics Acute anemia/GI bleed Secondary to GI bleed On 10/21 patient had endoscopy and colonoscopy, patient was found to have A single non-bleeding angioectasia in the duodenum treated with coagulation. Four 4 to 5 mm polyps in the sigmoid colon and at the hepatic flexure, removed with a cold snare. Resected and retrieved. Small Internal Hemorrhoids. Recently the patient had video capsule endoscopy, she was found to have numerous small vascular ectasias some with active bleeding scattered from distal third portion of duodenum the distal jejunum I talked to Dr. Zabala, he recommended follow-up in the outpatient settings, he will arrange appointment to [facility] for push intestinal entero scopy Patient received 2 units of blood, hemoglobin 9.4 Echo showed severe aortic stenosis. She was diagnosed with Heyde Syndrome given history of multiple angiectasias and severe aortic stenosis. I will transfer patient to [facility] for aortic valve replacement Acute diastolic CHF BNP is elevated to 1079 DC fluid Cardiac diet I's and O's Lasix IV CAD w 2003 Continue statin Patient is not on the beta blockers. I will start metoprolol tartrate Anxiety/depression Continue home meds Chronic back pain Continue home meds Hypertension Blood pressures under control Patient is not on the any blood pressure medications DISCHARGE MEDICATIONS: Please see below. ALLERGIES: Please see below. PHYSICAL EXAMINATION ON DISCHARGE: VITAL SIGNS: Please see below. GENERAL APPEARANCE: NAD HEENT: no scleral icterus, plus JVD, EOMI CARDIOVASCULAR: S1S2 LUNGS: Diminished lung sounds bilaterally ABDOMEN: soft & not tender w palpitation MUSCULOSKELETAL: no cyanosis,+1 LE non pitting edema b/l INTEGUMENT: no generalized pallor NEUROLOGICAL: cranial nerve function from 2-12 intact intact, follows commands, speech not dysarthric LABORATORY DATA: Please see below. IMAGING: DATE OF PROCEDURE: 11/14/2020 Age: Gender: Height: 153 cm Weight: 84 kg REFERRING PHYSICIAN: Dr. Jayy العراقي. INDICATION: Cardiac murmur, unspecified. MEASUREMENTS: 2D Measurements: Interventricular septum 1.02 - 2.13 cm Posterior wall 0.91 cm Aortic root 3.3 cm Left atrium 3.5 cm LVOT 2.0 cm Left ventricle diastole 5.4 cm Proximal ascending aorta 3.9 cm Inferior vena cava 1.7 cm Doppler Measurements: Severe aortic stenosis No aortic regurgitation Aortic valve velocity 430 cm/s Peak aortic valve gradient 74 mmHg Mean aortic valve gradient 46 mmHg Aortic valve VTI 101 cm LVOT velocity 62.0 cm/s Very mild mitral regurgitation Mitral E velocity 118 cm/s Mitral A velocity 110 cm/s Mitral deceleration time 156 msec Very mild tricuspid regurgitation Estimated right ventricle systolic pressure 51-56 mmHg Estimated right atrial pressure of 5-10 mmHg No pulmonic regurgitation MITRAL ANNULAR TISSUE DOPPLER E prime septal 6.1 cm/s, E prime lateral 6.0 cm/s DESCRIPTION: Rhythm was sinus. This was a moderately technically difficult echocardiogram. This was a 2D, M-mode, color flow Doppler, and pulsed wave Doppler examination including mitral annular tissue Doppler. CONCLUSIONS: 1. Severe degenerative, calcific aortic valve disease with severe aortic valve stenosis. No aortic regurgitation. 2. Severe focal hypertrophy of the basal anterior interventricular septum. No dynamic LVOT obstruction. Normal LV wall thickness elsewhere with the exception of the inferobasal segment which showed wall thinning. 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 Remaining grace of the left ventricle showed normal wall motion and wall thickening. Normal overall LV systolic function. LVEF of 60% by visual estimate. Grade 2 LV diastolic dysfunction (pseudonormal LV filling pattern). 3. Severe mitral annular calcification. No mitral stenosis. Very mild mitral regurgitation. 4. Mild dilatation of the proximal ascending aorta. 5. Suggestive of moderate elevation of estimated right ventricle systolic pressure. 6. Tiny pericardial effusion without cardiac chamber collapse and without significant respiratory variation of intracardiac velocities. ADDITIONAL COMMENTS AND RECOMMENDATIONS: If patient has symptoms attributable to severe aortic valve stenosis (such as angina, exertional dyspnea, heart failure, or presyncope/syncope), then recommend patient be transferred to a facility that does transaortic valve replacement provided that the patient is a willing candidate. DD: Jonathan Zelaya MD [facility] 11/14/20 2157 DS: DS2: [~ rep ct labl] PROGNOSIS: Fair ACTIVITY: [As tolerated]. DIET: Cardiac DISCHARGE PLAN: Transfer to [facility] ITEMS TO FOLLOWUP ON ON OUTPATIENT: With quality assurance manager and GI team DISCHARGE CONDITION: [Stable]. TIME SPENT ON DISCHARGE: 40 minutes. Vital Signs/I&Os Vital Signs Date Time Temp Pulse Resp B/P (MAP) Pulse Ox O2 Delivery O2 Flow Rate FiO2 11/15/20 16:00 97.0 75 18 132/66 (88) 93 Room Air 11/13/20 20:23 2.0 I&O- Last 24 Hours up to 6 AM 11/15/20 06:00 Intake Total 800 ml Output Total 1900 ml Balance -1100 ml Laboratory Data CBC/BMP Laboratory Tests 11/14/20 21:06 11/15/20 01:59 11/15/20 07:48 11/15/20 13:59 Microbiology Microbiology 11/13/20 Respiratory Virus Panel (PCR) (CHRISTAL) - Final, Complete 11/13/20 Blood Culture - Preliminary, Resulted No growth after 24 hours . All specim... 11/13/20 Blood Culture - Preliminary, Resulted No growth after 24 hours . All specim... Discharge Medications Scheduled Bupropion Hcl (Bupropion Xl) 150 Mg Tab.er.24h, 150 MG PO DAILY, (Reported) Ferrous Sulfate (Ferrous Sulfate) 325 Mg Tablet, 325 MG PO DAILY, (Reported) pt states her pcp is decreasing dose. Metoprolol Tartrate (Metoprolol Tartrate) 25 Mg Tablet, 12.5 MG PO DAILY Omeprazole (Omeprazole) 40 Mg Capsule.dr, 40 MG PO DAILY, (Reported) Pregabalin (Lyrica) 75 Mg Capsule, 75 MG PO BID, (Reported) Rosuvastatin Calcium (Rosuvastatin Calcium) 40 Mg Tablet, 40 MG PO QHS, (Reported) Scheduled PRN Tramadol HCl (Tramadol HCl) 50 Mg Tablet, 50 MG PO DAILY PRN for PAIN, (Reported) Allergies Coded Allergies: Sulfa (Sulfonamide Antibiotics) (Verified Allergy, Unknown, 09/20/20) ESSENCE OTTO DO Nov 15, 2020 18:53
[2020-11-15 19:55] LABS: HEMATOCRIT 33.2 % (36.0-47.0); HEMOGLOBIN 10.1 g/dl (12.0-15.5)
[2020-11-15 20:00] VITALS: BP 124/74
[2020-11-15] MEDS: ROSUVASTATIN 10 MG TAB (CRESTOR) PO SCH (20:36)
[2020-11-16] VITALS: BP_SYST 108; BP_SYST 125; BP_DIAS 58; BP_DIAS 64
[2020-11-16 02:03] LABS: HEMATOCRIT 33.4 % (36.0-47.0); HEMOGLOBIN 10.1 g/dl (12.0-15.5)
[2020-11-16 04:20] VITALS: BP 102/70
[2020-11-16] MEDS: SLF 3 ML SYR IV SCH ×2 (06:08→08:53)
[2020-11-16 07:42] VITALS: BP 135/79
[2020-11-16 08:17] LABS: HEMATOCRIT 35.4 % (36.0-47.0); HEMOGLOBIN 10.8 g/dl (12.0-15.5)
[2020-11-16] MEDS: FUROSEMIDE 40MG/4ML VIAL (J1940) IV SCH (08:51)
[2020-11-16 08:52] VITALS: BP 135/79
[2020-11-16] MEDS: FERROUS SULFATE 325MG TAB PO SCH (08:52)
[2020-11-16] MEDS: PREGABALIN 75 MG CAP(LYRICA) PO SCH (08:52)
[2020-11-16] MEDS: buPROPion **XL** TABLET 150MG (WELLBUTRIN XL) PO SCH (08:52)
[2020-11-16] MEDS: DOCUSATE SODIUM 100MG CAPSULE PO SCH (08:52)
[2020-11-16] MEDS: OMEPRAZOLE 20 MG CAP PO SCH (08:52)
[2020-11-16] MEDS: METOPROLOL TART 12.5 MG PER 1/2 TAB PO SCH (08:52)
[2020-11-16 12:00] VITALS: BP 100/59
== END 2020-11-16 15:52 | disposition short-term general hospital (02) | DRG 377 ==
LOC: M ED 19:23 → M ED INP 23:14 → ENRESERV 23:51 → M PCU 11-14 01:33 → UNDODISIN 11-16 11:40
PROVIDERS: ADMIT Family Medicine; ATTEND Internal Medicine
PROC: 30233N1 Transfusion of Nonautologous Red Blood Cells into Peripheral Vein, Percutaneous Approach (ICD-10-PCS; principal; 2020-11-13)
DX: K92.2 Gastrointestinal hemorrhage, unspecified (principal); I50.33 Acute on chronic diastolic (congestive) heart failure; D62 Acute posthemorrhagic anemia; I25.10 Atherosclerotic heart disease of native coronary artery without angina pectoris; I11.0 Hypertensive heart disease with heart failure; E78.5 Hyperlipidemia, unspecified; I35.0 Nonrheumatic aortic (valve) stenosis; G43.909 Migraine, unspecified, not intractable, without status migrainosus; M54.9 Dorsalgia, unspecified; E55.9 Vitamin D deficiency, unspecified; E66.9 Obesity, unspecified; F17.200 Nicotine dependence, unspecified, uncomplicated; F41.9 Anxiety disorder, unspecified; F32.9 Major depressive disorder, single episode, unspecified; Z95.5 Presence of coronary angioplasty implant and graft; Z68.31 Body mass index [BMI] 31.0-31.9, adult; Z79.899 Other long term (current) drug therapy; Z88.2 Allergy status to sulfonamides

== ENCOUNTER → 2020-12-13 | Outpatient (REF) | payer MEDICARE, OTHER ==
[~2020-12-13] MED LIST changes: +AMLO2.5T3 PO; +FERR1TAB8 PO; +FURO40TA2 PO; +HYDR-3713 PO; +METO1TAB87 PO; +OMEP40CA4 PO; -OMEP40CA97 PO; +ONDA-83 PO; +OXYC1TAB23 PO; +POTA20TA6 PO
[2020-12-13 17:34] LABS: BASO # 0.1 10^3/uL (0.0-0.2); BASO % 0.9 % (0.0-1.0); EOS # 0.4 10^3/uL (0.0-0.5); EOS % 3.8 % (0.0-3.0); HEMATOCRIT 33.2 % (36.0-47.0); HEMOGLOBIN 9.5 g/dl (12.0-15.5); LYMPH # 1.9 10^3/uL (1.5-5.0); LYMPH % 16.4 % (24.0-44.0); MEAN CORPUSCULAR HEMOGLOBIN 26.5 pg (27.0-33.0); MEAN CORPUSCULAR HGB CONC 28.6 g/dl (32.0-36.5); MEAN CORPUSCULAR VOLUME 92.5 fl (80.0-96.0); MONO # 0.9 10^3/uL (0.0-0.8); MONO % 7.8 % (2.0-8.0); NEUTROPHILS # 8.3 10^3/uL (1.5-8.5); NEUTROPHILS % 70.6 % (36.0-66.0); PLATELET COUNT, AUTOMATED 420 10^3/uL (150-450); RED BLOOD COUNT 3.59 10^6/uL (4.00-5.40); WHITE BLOOD COUNT 11.7 10^3/uL (4.0-10.0)
[2020-12-13 18:00] LABS: ALBUMIN 3.1 GM/DL (3.2-5.2); ALT/SGPT 66 U/L (12-78); BILIRUBIN,TOTAL 0.4 MG/DL (0.2-1.0); BLOOD UREA NITROGEN 13 MG/DL (7-18); CALCIUM LEVEL 9.2 MG/DL (8.8-10.2); CARBON DIOXIDE LEVEL 30 MEQ/L (21-32); CHLORIDE LEVEL 107 MEQ/L (98-107); CREATININE FOR GFR 0.62 MG/DL (0.55-1.30); FERRITIN 30 NG/ML (8-252); GLOMERULAR FILTRATION RATE > 60.0 (>45); GLUCOSE, FASTING 82 MG/DL (70-100); IRON (FE) 20 UG/DL (50-170); PERCENT SATURATION 4.8 % (13.2-45.0); POTASSIUM SERUM 4.6 MEQ/L (3.5-5.1); SODIUM LEVEL 143 MEQ/L (136-145); TOTAL IRON BINDING CAPACITY 413 UG/DL (250-450); TOTAL PROTEIN 6.9 GM/DL (6.4-8.2)
== END ==
LOC: M SFHCADAM 14:13
PROVIDERS: ATTEND Physician Assistant
DX: J90 Pleural effusion, not elsewhere classified (principal); D50.0 Iron deficiency anemia secondary to blood loss (chronic); Z95.2 Presence of prosthetic heart valve; Z95.1 Presence of aortocoronary bypass graft
CPT/HCPCS: 80053; 82728; 83550; 85025; G0463

== ENCOUNTER → 2020-12-27 | Outpatient (REF) | payer MEDICARE, OTHER ==
[~2020-12-27] MED LIST changes: -AMLO2.5T3 PO; -FURO40TA2 PO; -HYDR-3713 PO; -ONDA-83 PO; -OXYC1TAB23 PO; -POTA20TA6 PO
[2020-12-27 13:32] LABS: HEMOGLOBIN 9.9 g/dl (12.0-15.5); MEAN CORPUSCULAR HEMOGLOBIN 24.7 pg (27.0-33.0); MEAN CORPUSCULAR HGB CONC 28.3 g/dl (32.0-36.5); MEAN CORPUSCULAR VOLUME 87.3 fl (80.0-96.0); PLATELET COUNT, AUTOMATED 363 10^3/uL (150-450); RED BLOOD COUNT 4.01 10^6/uL (4.00-5.40)
[2020-12-27 13:56] LABS: BLOOD UREA NITROGEN 13 MG/DL (7-18); CALCIUM LEVEL 9.1 MG/DL (8.8-10.2); CARBON DIOXIDE LEVEL 29 MEQ/L (21-32); CHLORIDE LEVEL 107 MEQ/L (98-107); CREATININE FOR GFR 0.67 MG/DL (0.55-1.30); GLOMERULAR FILTRATION RATE > 60.0 (>45); GLUCOSE, FASTING 90 MG/DL (70-100); POTASSIUM SERUM 4.8 MEQ/L (3.5-5.1); SODIUM LEVEL 140 MEQ/L (136-145)
== END ==
LOC: M SFHCADAM 09:36
PROVIDERS: ATTEND Physician Assistant
DX: I25.10 Atherosclerotic heart disease of native coronary artery without angina pectoris (principal)

== ENCOUNTER 2020-12-29 13:55 | Emergency (ER) | payer MEDICARE, OTHER ==
[~2020-12-29] VITALS: Ht 162.6 cm; Wt 80.3 kg
[2020-12-29] MEDS ORDERED: NORCO, ANEXSIA 5/325MG TABLET (HYDROcodone/ACETAMINOPHEN) PO ONE (15:20)
[2020-12-29] MEDS ORDERED: POTA20TA6 PO (15:21)
[2020-12-29] MEDS ORDERED: FURO40TA2 PO (15:21)
[2020-12-29] MEDS ORDERED: ONDA-83 PO (15:21)
[2020-12-29] MEDS ORDERED: AMLO2.5T3 PO (15:21)
[2020-12-29] MEDS ORDERED: FAMO40TA3 PO (15:21)
[2020-12-29] MEDS ORDERED: OXYC1TAB23 PO (15:21)
--- NOTE | 2020-12-29 15:53 | REP ---
INDICATION: ensure pleural effusion resolved to remove catheter. COMPARISON: 11/13/2020 TECHNIQUE: PA and lateral FINDINGS: In the interval from last month's chest x-ray as she has undergone sternotomy with aortic valve replacement. There is a right-sided chest tube coursing along the posterior paraspinal right chest, ending about the T3-4 level. There is a small to moderate-sized pleural effusion on the right side. The left side shows no effusion. There is no pulmonary edema with the interstitial edema on the previous study resolved. Heart size borderline. There is calcified aortic arch with some tortuosity. Airway is intact. No abnormal widening of the mediastinum. Visualized ribs, shoulders, clavicles and spine were grossly intact. No free air under the diaphragm. IMPRESSION: 1. Interval sternotomy and aortic valve replacement. The right-sided chest tube with the small a moderate right-sided pleural effusion present. Previously noted pulmonary edema on 11/13/2020 appears resolved. <Electronically signed by Benjamin Hall > 12/29/20 1864
[2020-12-29] MEDS ORDERED: METO1TAB87 PO (16:33)
[2020-12-29] MEDS ORDERED: HYDR-3713 PO (17:05)
[2020-12-29 17:10] VITALS: BP 137/90
== END 2020-12-29 17:15 | disposition home or self-care (01) ==
LOC: M ED 13:55
DX: T85.848A Pain due to other internal prosthetic devices, implants and grafts, initial encounter (principal); J90 Pleural effusion, not elsewhere classified; I25.10 Atherosclerotic heart disease of native coronary artery without angina pectoris; I10 Essential (primary) hypertension; E78.5 Hyperlipidemia, unspecified; K21.9 Gastro-esophageal reflux disease without esophagitis; Z95.4 Presence of other heart-valve replacement; Z87.19 Personal history of other diseases of the digestive system; Z95.1 Presence of aortocoronary bypass graft; Z95.5 Presence of coronary angioplasty implant and graft; Z79.899 Other long term (current) drug therapy; Z88.2 Allergy status to sulfonamides

== ENCOUNTER → 2021-01-06 | Outpatient (REF) | payer MEDICARE, OTHER ==
[~2021-01-06] MED LIST changes: +AMLO2.5T3 PO; +FURO40TA2 PO; +HYDR-3713 PO; +ONDA-83 PO; +OXYC1TAB23 PO; +POTA20TA6 PO
[2021-01-06 13:00] LABS: HEMATOCRIT 39.3 % (36.0-47.0); MEAN CORPUSCULAR HEMOGLOBIN 24.2 pg (27.0-33.0); MEAN CORPUSCULAR VOLUME 86.4 fl (80.0-96.0); PLATELET COUNT, AUTOMATED 367 10^3/uL (150-450); RED BLOOD COUNT 4.55 10^6/uL (4.00-5.40); WHITE BLOOD COUNT 12.9 10^3/uL (4.0-10.0)
[2021-01-06 13:37] LABS: BLOOD UREA NITROGEN 17 MG/DL (7-18); CALCIUM LEVEL 9.7 MG/DL (8.8-10.2); CARBON DIOXIDE LEVEL 30 MEQ/L (21-32); CHLORIDE LEVEL 106 MEQ/L (98-107); CREATININE FOR GFR 0.91 MG/DL (0.55-1.30); GLOMERULAR FILTRATION RATE > 60.0 (>45); GLUCOSE, FASTING 103 MG/DL (70-100); POTASSIUM SERUM 4.4 MEQ/L (3.5-5.1); SODIUM LEVEL 141 MEQ/L (136-145)
== END ==
LOC: M LABDRWAD 12:35
PROVIDERS: ATTEND Physician Assistant
DX: I25.10 Atherosclerotic heart disease of native coronary artery without angina pectoris (principal)

== ENCOUNTER → 2021-01-10 | Outpatient (REF) | payer MEDICARE, OTHER ==
[~2021-01-10] MED LIST changes: -KLOR20TA42 PO; +LOSA100T45 PO; -LOSA100T50 PO; +POTA-141 PO; +POTA-151 PO; -POTA20TA6 PO
[2021-01-10 15:00] LABS: HEMATOCRIT 34.6 % (36.0-47.0); HEMOGLOBIN 10.1 g/dl (12.0-15.5); MEAN CORPUSCULAR HEMOGLOBIN 24.3 pg (27.0-33.0); MEAN CORPUSCULAR HGB CONC 29.2 g/dl (32.0-36.5); MEAN CORPUSCULAR VOLUME 83.4 fl (80.0-96.0); PLATELET COUNT, AUTOMATED 279 10^3/uL (150-450); RED BLOOD COUNT 4.15 10^6/uL (4.00-5.40); WHITE BLOOD COUNT 8.8 10^3/uL (4.0-10.0)
[2021-01-10 16:10] LABS: BLOOD UREA NITROGEN 14 MG/DL (7-18); CALCIUM LEVEL 9.4 MG/DL (8.8-10.2); CARBON DIOXIDE LEVEL 27 MEQ/L (21-32); CHLORIDE LEVEL 105 MEQ/L (98-107); GLOMERULAR FILTRATION RATE > 60.0 (>45); GLUCOSE, FASTING 99 MG/DL (70-100); POTASSIUM SERUM 4.3 MEQ/L (3.5-5.1); SODIUM LEVEL 139 MEQ/L (136-145)
== END ==
LOC: M SHH 14:44
PROVIDERS: ATTEND Physician Assistant
DX: I25.10 Atherosclerotic heart disease of native coronary artery without angina pectoris (principal)

== ENCOUNTER → 2021-04-26 | Outpatient (CLI) | payer MEDICARE, BC, OTHER ==
[~2021-04-26] MED LIST changes: -LOSA100T45 PO; +LOSA100T50 PO; -POTA-151 PO; +POTA20TA6 PO
== END ==
LOC: M LABSMTC 10:24
PROVIDERS: ATTEND Pediatrics
DX: Z11.52 Encounter for screening for COVID-19 (principal)
CPT/HCPCS: C9803; U0003

== ENCOUNTER 2021-05-01 08:09 | Outpatient (CLI) | payer MEDICARE, BC, OTHER ==
[~2021-05-01] VITALS: Ht 162.6 cm; Wt 77.1 kg
[~2021-05-01 08:09] MED LIST changes: +ALBUTEROL 90 MCG/ACT 8GM HFA INHALER INH PRN; +ALBUTEROL SULFATE 2.5 MG/0.5 ML INH NEB SOLN INH PRN; +EPINEPHrine INJ 1 MG/ML 1ML AMP IM PRN; +NS 1,000 ML IV SCH; +diphenhydrAMINE 50MG/ML VIAL (J1200) IV PRN; +methylPREDNISolone 125MG 2ML VIAL IV PRN
[2021-05-01] MEDS ORDERED: CASIRIVIMAB (REGN10933) 600 MG, IMDEVIMAB (REGN10987) 600 MG in NS 250 ML IV ONE (08:35)
[2021-05-01] MEDS ORDERED: diphenhydrAMINE 50MG CAP PO ONE (08:35)
[2021-05-01] MEDS ORDERED: ACETAMINOPHEN TAB 650MG DOSE (2X325MG) PO ONE (08:35)
[2021-05-01 08:42] VITALS: BP 124/94
[2021-05-01 09:12] VITALS: BP 157/85
[2021-05-01 09:42] VITALS: BP 158/82
[2021-05-01 10:42] VITALS: BP 168/92
== END 2021-05-01 10:42 | disposition home or self-care (01) ==
LOC: M OPCLI4PR 08:09
PROVIDERS: ATTEND Physician Assistant
DX: U07.1 COVID-19 (principal); Z88.2 Allergy status to sulfonamides

== ENCOUNTER → 2021-05-16 | Outpatient (REF) | payer MEDICARE, OTHER ==
[~2021-05-16] MED LIST changes: -ALBUTEROL 90 MCG/ACT 8GM HFA INHALER INH PRN; -ALBUTEROL SULFATE 2.5 MG/0.5 ML INH NEB SOLN INH PRN; -EPINEPHrine INJ 1 MG/ML 1ML AMP IM PRN; -NS 1,000 ML IV SCH; -diphenhydrAMINE 50MG/ML VIAL (J1200) IV PRN; -methylPREDNISolone 125MG 2ML VIAL IV PRN
[2021-05-16 12:45] LABS: BASO # 0.1 10^3/uL (0.0-0.2); BASO % 0.9 % (0.0-1.0); EOS # 0.3 10^3/uL (0.0-0.5); EOS % 2.7 % (0.0-3.0); HEMATOCRIT 35.5 % (36.0-47.0); HEMOGLOBIN 10.2 g/dl (12.0-15.5); LYMPH % 21.5 % (24.0-44.0); MEAN CORPUSCULAR HEMOGLOBIN 22.5 pg (27.0-33.0); MEAN CORPUSCULAR HGB CONC 28.7 g/dl (32.0-36.5); MEAN CORPUSCULAR VOLUME 78.4 fl (80.0-96.0); MONO # 0.9 10^3/uL (0.0-0.8); MONO % 9.2 % (2.0-8.0); NEUTROPHILS % 65.4 % (36.0-66.0); PLATELET COUNT, AUTOMATED 344 10^3/uL (150-450); RED BLOOD COUNT 4.53 10^6/uL (4.00-5.40); WHITE BLOOD COUNT 9.2 10^3/uL (4.0-10.0)
[2021-05-16 13:30] LABS: ALBUMIN 3.4 GM/DL (3.2-5.2); ALT/SGPT 59 U/L (12-78); BILIRUBIN,TOTAL 0.4 MG/DL (0.2-1.0); BLOOD UREA NITROGEN 19 MG/DL (7-18); CALCIUM LEVEL 9.2 MG/DL (8.8-10.2); CARBON DIOXIDE LEVEL 30 MEQ/L (21-32); CHLORIDE LEVEL 105 MEQ/L (98-107); CREATININE FOR GFR 0.77 MG/DL (0.55-1.30); FERRITIN 7 NG/ML (8-252); FREE T4 0.98 NG/DL (0.76-1.46); GLOMERULAR FILTRATION RATE > 60.0 (>45); GLUCOSE, FASTING 126 MG/DL (70-100); IRON (FE) 23 UG/DL (50-170); POTASSIUM SERUM 4.5 MEQ/L (3.5-5.1); SODIUM LEVEL 141 MEQ/L (136-145); TOTAL 25(OH) VITAMIN D 58.6 NG/ML (30.0-100.0); TOTAL IRON BINDING CAPACITY 459 UG/DL (250-450); TOTAL PROTEIN 7.2 GM/DL (6.4-8.2)
== END ==
LOC: M SFHCADAM 10:53
PROVIDERS: ATTEND Physician Assistant
DX: J01.90 Acute sinusitis, unspecified (principal); D50.0 Iron deficiency anemia secondary to blood loss (chronic); I25.10 Atherosclerotic heart disease of native coronary artery without angina pectoris; F17.211 Nicotine dependence, cigarettes, in remission; I10 Essential (primary) hypertension; Z79.899 Other long term (current) drug therapy

== ENCOUNTER → 2021-12-04 | Outpatient (CLI) | payer MEDICARE, OTHER ==
[~2021-12-04] MED LIST changes: +LOSA100T45 PO; -LOSA100T50 PO; +POTA-151 PO; -POTA20TA6 PO
[2021-12-04 12:55] LABS: HEMATOCRIT 42.8 % (36.0-47.0); HEMOGLOBIN 13.2 g/dl (12.0-15.5); MEAN CORPUSCULAR HEMOGLOBIN 26.4 pg (27.0-33.0); MEAN CORPUSCULAR HGB CONC 30.8 g/dl (32.0-36.5); MEAN CORPUSCULAR VOLUME 85.6 fl (80.0-96.0); PLATELET COUNT, AUTOMATED 283 10^3/uL (150-450); WHITE BLOOD COUNT 8.4 10^3/uL (4.0-10.0)
[2021-12-04 14:26] LABS: FERRITIN 9 NG/ML (8-252); IRON (FE) 47 UG/DL (50-170)
== END ==
LOC: M ADAMS 09:35
PROVIDERS: ATTEND Nurse Practitioner Family
DX: D50.9 Iron deficiency anemia, unspecified (principal)

== ENCOUNTER → 2021-12-18 | Outpatient (CLI) | payer MEDICARE, BC, OTHER | LOC: M RAD 08:26 | PROVIDERS: ATTEND Physician Assistant | DX: Z87.891 Personal history of nicotine dependence (principal) ==

== ENCOUNTER → 2021-12-28 | Outpatient (REF) | payer MEDICARE, OTHER ==
[2021-12-28 12:36] LABS: BLOOD UREA NITROGEN 21 MG/DL (7-18); CALCIUM LEVEL 9.5 MG/DL (8.8-10.2); CARBON DIOXIDE LEVEL 23 MEQ/L (21-32); CHLORIDE LEVEL 110 MEQ/L (98-107); CREATININE FOR GFR 0.84 MG/DL (0.55-1.30); GLOMERULAR FILTRATION RATE > 60.0 (>45); GLUCOSE, FASTING 122 MG/DL (70-100); POTASSIUM SERUM 4.5 MEQ/L (3.5-5.1); SODIUM LEVEL 141 MEQ/L (136-145)
== END ==
LOC: M SFHCADAM 08:17
PROVIDERS: ATTEND Physician Assistant
DX: I25.10 Atherosclerotic heart disease of native coronary artery without angina pectoris (principal); I10 Essential (primary) hypertension

== ENCOUNTER → 2022-01-01 | Outpatient (CLI) | payer MEDICARE, BC, OTHER ==
[~2022-01-01] MED LIST changes: +ISOVUE-370 76% 100ML VIAL As Ordered ONE
== END ==
LOC: M RAD 14:18
PROVIDERS: ATTEND Physician Assistant
DX: I77.810 Thoracic aortic ectasia (principal); R91.1 Solitary pulmonary nodule; J43.9 Emphysema, unspecified; K44.9 Diaphragmatic hernia without obstruction or gangrene; K82.8 Other specified diseases of gallbladder
CPT/HCPCS: 71260; Q9967

== ENCOUNTER → 2022-08-29 | Outpatient (REF) | payer MEDICARE, OTHER ==
[~2022-08-29] MED LIST changes: -ISOVUE-370 76% 100ML VIAL As Ordered ONE
[2022-08-29 13:40] LABS: HEMATOCRIT 44.3 % (36.0-47.0); HEMOGLOBIN 14.6 g/dl (12.0-15.5); MEAN CORPUSCULAR HEMOGLOBIN 30.5 pg (27.0-33.0); MEAN CORPUSCULAR VOLUME 92.7 fl (80.0-96.0); PLATELET COUNT, AUTOMATED 229 10^3/uL (150-450); RED BLOOD COUNT 4.78 10^6/uL (4.00-5.40); WHITE BLOOD COUNT 8.1 10^3/uL (4.0-10.0)
[2022-08-29 14:07] LABS: HEMOGLOBIN A1c 5.9 % (4.0-6.0)
[2022-08-29 14:09] LABS: ALKALINE PHOSPHATASE 92 U/L (46-116); ALT/SGPT 33 U/L (7.0-40); AST/SGOT 29 U/L (<34); BILIRUBIN,TOTAL 0.9 MG/DL (0.3-1.2); BLOOD UREA NITROGEN 19 MG/DL (9-23); CALCIUM LEVEL 9.3 MG/DL (8.3-10.6); CARBON DIOXIDE LEVEL 25 MMOL/L (20-31); CHLORIDE LEVEL 105 MMOL/L (98-107); CHOLESTEROL LEVEL 151 MG/DL (<200); CHOLESTEROL RISK RATIO 3.08 (<5); GLOMERULAR FILTRATION RATE > 60.0 (>45); GLUCOSE, FASTING 105 MG/DL (74-106); HDL CHOLESTEROL 48.9 MG/DL (>40); IRON (FE) 94 UG/DL (50-170); LDL CHOLESTEROL 72.7 MG/DL (<100); NON-HDL-C 102.1 MG/DL; PERCENT SATURATION 25.6 % (13.2-45.0); POTASSIUM SERUM 4.5 MMOL/L (3.5-5.1); SODIUM LEVEL 140 MMOL/L (136-145); TOTAL IRON BINDING CAPACITY 367 UG/DL (250-425); TRIGLYCERIDES LEVEL 147 MG/DL (<150)
[2022-08-29 14:12] LABS: FERRITIN 16.5 NG/ML (7.3-270.7)
[2022-08-29 14:13] LABS: THYROID STIMULATING HORMONE 3.394 uIU/ML (0.55-4.78)
[2022-08-29 14:15] LABS: FREE T4 1.06 NG/DL (0.89-1.76)
== END ==
LOC: M SFHCADAM 08:55
PROVIDERS: ATTEND Physician Assistant
DX: I73.9 Peripheral vascular disease, unspecified (principal); R73.01 Impaired fasting glucose; Z95.2 Presence of prosthetic heart valve; F17.211 Nicotine dependence, cigarettes, in remission; D50.0 Iron deficiency anemia secondary to blood loss (chronic); K76.7 Hepatorenal syndrome; Z79.899 Other long term (current) drug therapy

== ENCOUNTER → 2022-09-04 | Outpatient (CLI) | payer MEDICARE, OTHER | LOC: M WHC 11:35 | PROVIDERS: ATTEND Physician Assistant | DX: Z12.31 Encounter for screening mammogram for malignant neoplasm of breast (principal) ==

== ENCOUNTER → 2023-02-05 | Outpatient (REF) | payer MEDICARE, BC, OTHER ==
[~2023-02-05] MED LIST changes: -LOSA100T45 PO; +LOSA100T46 PO
[2023-02-05 19:19] LABS: BASO # 0.1 10^3/uL (0.0-0.2); EOS # 0.3 10^3/uL (0.0-0.5); EOS % 2.9 % (0.0-3.0); HEMATOCRIT 46.5 % (36.0-47.0); LYMPH # 2.7 10^3/uL (1.5-5.0); LYMPH % 31.7 % (24.0-44.0); MEAN CORPUSCULAR HEMOGLOBIN 30.2 pg (27.0-33.0); MEAN CORPUSCULAR HGB CONC 32.3 g/dl (32.0-36.5); MEAN CORPUSCULAR VOLUME 93.6 fl (80.0-96.0); MONO # 0.8 10^3/uL (0.0-0.8); NEUTROPHILS # 4.7 10^3/uL (1.5-8.5); NEUTROPHILS % 55.2 % (36.0-66.0); PLATELET COUNT, AUTOMATED 230 10^3/uL (150-450); RED BLOOD COUNT 4.97 10^6/uL (4.00-5.40); WHITE BLOOD COUNT 8.6 10^3/uL (4.0-10.0)
[2023-02-05 19:56] LABS: ALBUMIN 4.5 G/DL (3.2-5.2); ALKALINE PHOSPHATASE 68 U/L (46-116); ALT/SGPT 25 U/L (7.0-40); AST/SGOT 21 U/L (<34); BILIRUBIN,TOTAL 1.1 MG/DL (0.3-1.2); BLOOD UREA NITROGEN 19 MG/DL (9-23); CARBON DIOXIDE LEVEL 29 MMOL/L (20-31); CHLORIDE LEVEL 101 MMOL/L (98-107); CHOLESTEROL LEVEL 118 MG/DL (<200); CHOLESTEROL RISK RATIO 2.66 (<5); CREATININE FOR GFR 0.76 MG/DL (0.55-1.30); GLOMERULAR FILTRATION RATE > 60.0 (>45); GLUCOSE, FASTING 91 MG/DL (74-106); HDL CHOLESTEROL 44.2 MG/DL (>40); IRON (FE) 93 UG/DL (50-170); LDL CHOLESTEROL 49.4 MG/DL (<100); NON-HDL-C 73.8 MG/DL; PERCENT SATURATION 26.5 % (13.2-45.0); POTASSIUM SERUM 3.7 MMOL/L (3.5-5.1); SODIUM LEVEL 140 MMOL/L (136-145); THYROID STIMULATING HORMONE 2.481 uIU/ML (0.55-4.78); TOTAL IRON BINDING CAPACITY 351 UG/DL (250-425); TOTAL PROTEIN 7.6 G/DL (5.7-8.2); TRIGLYCERIDES LEVEL 122 MG/DL (<150)
[2023-02-05 19:57] LABS: FERRITIN 39.5 NG/ML (7.3-270.7); TOTAL 25(OH) VITAMIN D 85.8 NG/ML (20.0-100.0); VITAMIN B12 LEVEL 468 PG/ML (211-911)
[2023-02-05 19:58] LABS: FOLATE > 24.0 NG/ML (>5.4)
[2023-02-05 20:02] LABS: HEMOGLOBIN A1c 5.7 % (4.0-6.0)
== END ==
LOC: M SFHCADAM 12:07
PROVIDERS: ATTEND Physician Assistant
DX: I10 Essential (primary) hypertension (principal); I25.10 Atherosclerotic heart disease of native coronary artery without angina pectoris; E78.00 Pure hypercholesterolemia, unspecified; D50.0 Iron deficiency anemia secondary to blood loss (chronic); Z95.1 Presence of aortocoronary bypass graft; Z79.899 Other long term (current) drug therapy

== ENCOUNTER → 2023-08-06 | Outpatient (CLI) | payer MEDICARE, BC, OTHER | LOC: M WHC 09:31 | PROVIDERS: ATTEND Physician Assistant | DX: Z12.31 Encounter for screening mammogram for malignant neoplasm of breast (principal); Z13.820 Encounter for screening for osteoporosis ==

== ENCOUNTER → 2023-08-15 | Outpatient (REF) | payer MEDICARE, OTHER ==
[2023-08-15 13:28] LABS: HEMATOCRIT 45.4 % (36.0-47.0); HEMOGLOBIN 14.7 g/dl (12.0-15.5); MEAN CORPUSCULAR HEMOGLOBIN 30.3 pg (27.0-33.0); MEAN CORPUSCULAR HGB CONC 32.4 g/dl (32.0-36.5); MEAN CORPUSCULAR VOLUME 93.6 fl (80.0-96.0); PLATELET COUNT, AUTOMATED 259 10^3/uL (150-450); RED BLOOD COUNT 4.85 10^6/uL (4.00-5.40)
[2023-08-15 13:52] LABS: FREE T4 1.27 NG/DL (0.89-1.76)
[2023-08-15 13:53] LABS: FERRITIN 45.6 NG/ML (7.3-270.7); THYROID STIMULATING HORMONE 2.279 uIU/ML (0.55-4.78)
[2023-08-15 13:55] LABS: ALBUMIN 3.7 G/DL (3.2-5.2); ALKALINE PHOSPHATASE 89 U/L (46-116); ALT/SGPT 42 U/L (7.0-40); AST/SGOT 19 U/L (<34); BILIRUBIN,TOTAL 0.6 MG/DL (0.3-1.2); BLOOD UREA NITROGEN 18 MG/DL (9-23); CALCIUM LEVEL 8.4 MG/DL (8.3-10.6); CARBON DIOXIDE LEVEL 28 MMOL/L (20-31); CHLORIDE LEVEL 104 MMOL/L (98-107); CREATININE FOR GFR 0.67 MG/DL (0.55-1.30); GLOMERULAR FILTRATION RATE > 60.0 (>45); GLUCOSE, FASTING 86 MG/DL (74-106); POTASSIUM SERUM 4.1 MMOL/L (3.5-5.1); SODIUM LEVEL 140 MMOL/L (136-145); TOTAL PROTEIN 6.6 G/DL (5.7-8.2)
== END ==
LOC: M SFHCADAM 07:03
PROVIDERS: ATTEND Physician Assistant
DX: I25.10 Atherosclerotic heart disease of native coronary artery without angina pectoris (principal); R53.82 Chronic fatigue, unspecified; Z13.820 Encounter for screening for osteoporosis; Z12.31 Encounter for screening mammogram for malignant neoplasm of breast; D50.9 Iron deficiency anemia, unspecified

== ENCOUNTER → 2024-02-26 | Outpatient (REF) | payer MEDICARE, BC ==
[~2024-02-26] MED LIST changes: -ROSU40TA4 PO; +ROSU40TA81 PO
[2024-02-26 19:07] LABS: BASO # 0.1 10^3/uL (0.0-0.2); BASO % 0.9 % (0.0-1.0); EOS # 0.3 10^3/uL (0.0-0.5); EOS % 2.8 % (0.0-3.0); HEMATOCRIT 49.9 % (36.0-47.0); HEMOGLOBIN 16.1 g/dl (12.0-15.5); LYMPH # 2.9 10^3/uL (1.5-5.0); LYMPH % 29.3 % (24.0-44.0); MEAN CORPUSCULAR HEMOGLOBIN 30.6 pg (27.0-33.0); MEAN CORPUSCULAR HGB CONC 32.3 g/dl (32.0-36.5); MEAN CORPUSCULAR VOLUME 94.9 fl (80.0-96.0); MONO # 0.8 10^3/uL (0.0-0.8); MONO % 7.8 % (2.0-8.0); NEUTROPHILS # 5.9 10^3/uL (1.5-8.5); NEUTROPHILS % 58.9 % (36.0-66.0); PLATELET COUNT, AUTOMATED 280 10^3/uL (150-450); RED BLOOD COUNT 5.26 10^6/uL (4.00-5.40)
[2024-02-26 19:31] LABS: HEMOGLOBIN A1c 5.8 % (4.0-6.0)
[2024-02-26 19:39] LABS: FERRITIN 35.2 NG/ML (7.3-270.7); FREE T4 1.33 NG/DL (0.89-1.76)
[2024-02-26 19:40] LABS: THYROID STIMULATING HORMONE 2.212 uIU/ML (0.55-4.78)
[2024-02-26 19:41] LABS: FOLATE > 24.0 NG/ML (>5.4)
[2024-02-26 19:42] LABS: ALBUMIN 4.4 G/DL (3.2-5.2); ALKALINE PHOSPHATASE 94 U/L (46-116); ALT/SGPT 41 U/L (7.0-40); AST/SGOT 22 U/L (<34); BILIRUBIN,TOTAL 0.9 MG/DL (0.3-1.2); BLOOD UREA NITROGEN 18 MG/DL (9-23); CALCIUM LEVEL 10.6 MG/DL (8.3-10.6); CARBON DIOXIDE LEVEL 29 MMOL/L (20-31); CHLORIDE LEVEL 103 MMOL/L (98-107); CHOLESTEROL LEVEL 285 MG/DL (<200); CHOLESTEROL RISK RATIO 5.49 (<5); CREATININE FOR GFR 0.77 MG/DL (0.55-1.30); GLOMERULAR FILTRATION RATE > 60.0 (>39); GLUCOSE, FASTING 89 MG/DL (74-106); HDL CHOLESTEROL 51.9 MG/DL (>40); LDL CHOLESTEROL 195.1 MG/DL (<100); NON-HDL-C 233.1 MG/DL; POTASSIUM SERUM 5.1 MMOL/L (3.5-5.1); SODIUM LEVEL 136 MMOL/L (136-145); TOTAL PROTEIN 7.9 G/DL (5.7-8.2); TRIGLYCERIDES LEVEL 190 MG/DL (<150); VITAMIN B12 LEVEL 445 PG/ML (211-911)
== END ==
LOC: M SFHCADAM 11:48
PROVIDERS: ATTEND Physician Assistant
DX: Z00.00 Encounter for general adult medical examination without abnormal findings (principal); I25.10 Atherosclerotic heart disease of native coronary artery without angina pectoris; F17.211 Nicotine dependence, cigarettes, in remission; R73.03 Prediabetes; Z95.2 Presence of prosthetic heart valve; E78.00 Pure hypercholesterolemia, unspecified

== ENCOUNTER → 2024-03-24 | Outpatient (CLI) | payer MEDICARE, BC | LOC: M RAD 14:33 | PROVIDERS: ATTEND Physician Assistant | DX: F17.210 Nicotine dependence, cigarettes, uncomplicated (principal) ==

== ENCOUNTER → 2024-10-16 | Outpatient (REF) | payer MEDICARE, BC ==
[2024-10-16 14:32] LABS: ALKALINE PHOSPHATASE 97 U/L (35-104); ALT/SGPT 42 U/L (7.0-40); AST/SGOT 26 U/L (<34); BILIRUBIN,TOTAL 0.4 MG/DL (0.3-1.2); BLOOD UREA NITROGEN 16 MG/DL (9-23); CALCIUM LEVEL 9.6 MG/DL (8.3-10.6); CARBON DIOXIDE LEVEL 30 MMOL/L (20-31); CHLORIDE LEVEL 104 MMOL/L (98-107); CHOLESTEROL LEVEL 139 MG/DL (<200); CHOLESTEROL RISK RATIO 2.54 (<5); CREATININE FOR GFR 0.71 MG/DL (0.55-1.30); GLOMERULAR FILTRATION RATE > 90.0 (>39); GLUCOSE, FASTING 109 MG/DL (74-106); HDL CHOLESTEROL 54.7 MG/DL (>40); LDL CHOLESTEROL 57.9 MG/DL (<100); NON-HDL-C 84.3 MG/DL; POTASSIUM SERUM 4.6 MMOL/L (3.5-5.1); SODIUM LEVEL 141 MMOL/L (136-145); TOTAL PROTEIN 7.2 G/DL (5.7-8.2); TRIGLYCERIDES LEVEL 132 MG/DL (<150)
== END ==
LOC: M LABDRWAD 13:32
PROVIDERS: ATTEND Nurse Practitioner Acute Care
DX: I10 Essential (primary) hypertension (principal); E78.00 Pure hypercholesterolemia, unspecified

== ENCOUNTER → 2024-10-29 | Outpatient (CLI) | payer MEDICARE, BC ==
[~2024-10-29] MED LIST changes: +ISOVUE-370 76% 100ML VIAL ONE
== END ==
LOC: M PLAIMG 08:56
PROVIDERS: ATTEND Nurse Practitioner Acute Care
DX: I71.21 Aneurysm of the ascending aorta, without rupture (principal); K76.0 Fatty (change of) liver, not elsewhere classified; K80.20 Calculus of gallbladder without cholecystitis without obstruction
CPT/HCPCS: 71260; Q9967

== ENCOUNTER 2024-12-16 13:13 | Outpatient (CLI) | payer MEDICARE, BC ==
[~2024-12-16 13:13] MED LIST changes: +AMLO1TAB24 PO; +CALC0.0017 TOP; +CEFAZOLIN; +CLOB5CR TOP; +DOXY100T27 PO; -ISOVUE-370 76% 100ML VIAL ONE; +LOPR1TAB6 PO; +METO25TA4 PO; +MULT1TAB50 PO; +NYST-38 SS; +OMEP40CA5 PO; +ONDA-282 PO; +POTA1TAB21 PO; +REPA140I2 SC; +RIFA30CA PO; +SEMA0.252 SC; +TORS5TAB2 PO; +[UNRECOGNIZED DRUG - OTHER]
[2024-12-16 13:55] VITALS: BP 128/76; O2SAT 95
[2024-12-16 14:20] LABS: PLATELET COUNT, AUTOMATED 358 10^3/uL (150-450)
[2024-12-16 14:26] LABS: ERYTHROCYTE SEDIMENTATION RATE 44 mm/hr (0-30)
[2024-12-16 14:47] LABS: ALT/SGPT 12.0 U/L (7.0-40); AST/SGOT 31.0 U/L (<34); C REACTIVE PROTEIN QUANTITATIV 1.43 MG/DL (<1.0); CALCIUM LEVEL 9.9 MG/DL (8.3-10.6); CARBON DIOXIDE LEVEL 27.0 MMOL/L (20-31); CHLORIDE LEVEL 102.0 MMOL/L (98-107); CREATININE FOR GFR 0.8 MG/DL (0.55-1.30); GLOMERULAR FILTRATION RATE 79.2 (>39); POTASSIUM SERUM 4.2 MMOL/L (3.5-5.1); SODIUM LEVEL 141.0 MMOL/L (136-145)
== END 2024-12-16 13:55 ==
LOC: M INFU 13:13
PROVIDERS: ATTEND Internal Medicine Cardiovascular Disease
DX: A49.01 Methicillin susceptible Staphylococcus aureus infection, unspecified site (principal); I33.0 Acute and subacute infective endocarditis

== ENCOUNTER 2024-12-17 06:10 | Day surgery (SDC) | payer MEDICARE, BC ==
[~2024-12-17] VITALS: Ht 162.6 cm; Wt 93.9 kg
[2024-12-17] MEDS ORDERED: LR 1,000 ML IV SCH (06:45)
[2024-12-17] MEDS ORDERED: LIDOCAINE VISCOUS 2% SOLN 15 ML UDC As Ordered ONE (07:10)
[2024-12-17] MEDS ORDERED: LIDOCAINE 2% 100 MG/5 ML SDV (FOR ANES.) As Ordered ONE (07:18)
[2024-12-17] MEDS: CETACAINE SPRAY 5 GM As Ordered ONE (07:30)
[2024-12-17 07:57] VITALS: BP 139/64; TEMP 97; O2SAT 97
== END 2024-12-17 08:25 | disposition home or self-care (01) ==
LOC: M SDC 06:10
PROVIDERS: ATTEND Internal Medicine Cardiovascular Disease
DX: I70.0 Atherosclerosis of aorta (principal); R78.81 Bacteremia; B95.61 Methicillin susceptible Staphylococcus aureus infection as the cause of diseases classified elsewhere; Z95.2 Presence of prosthetic heart valve; R50.9 Fever, unspecified; I25.10 Atherosclerotic heart disease of native coronary artery without angina pectoris; I35.9 Nonrheumatic aortic valve disorder, unspecified; I10 Essential (primary) hypertension; Z95.5 Presence of coronary angioplasty implant and graft; Z88.8 Allergy status to other drugs, medicaments and biological substances; Z91.018 Allergy to other foods; Z88.2 Allergy status to sulfonamides; Z79.899 Other long term (current) drug therapy

== ENCOUNTER 2024-12-23 13:08 | Outpatient (CLI) | payer MEDICARE, BC ==
[~2024-12-23] VITALS: Ht 162.6 cm; Wt 90.9 kg
[2024-12-23 13:30] VITALS: BP 135/82; O2SAT 97
== END 2024-12-23 14:00 | disposition home or self-care (01) ==
LOC: M INFU 13:08
PROVIDERS: ATTEND Internal Medicine Cardiovascular Disease
DX: A49.01 Methicillin susceptible Staphylococcus aureus infection, unspecified site (principal); I33.0 Acute and subacute infective endocarditis

== ENCOUNTER → 2024-12-30 | Outpatient (CLI) | payer MEDICARE, BC ==
[2024-12-30 14:08] LABS: PLATELET COUNT, AUTOMATED 222 10^3/uL (150-450)
[2024-12-30 14:19] LABS: ERYTHROCYTE SEDIMENTATION RATE 36 mm/hr (0-30)
[2024-12-30 14:36] LABS: C REACTIVE PROTEIN QUANTITATIV 0.54 MG/DL (<1.0)
[2024-12-30 14:37] LABS: ALT/SGPT 12.0 U/L (7.0-40); AST/SGOT 35.0 U/L (<34); CALCIUM LEVEL 9.3 MG/DL (8.3-10.6); CARBON DIOXIDE LEVEL 28.0 MMOL/L (20-31); CHLORIDE LEVEL 100.0 MMOL/L (98-107); CREATININE FOR GFR 0.74 MG/DL (0.55-1.30); GLOMERULAR FILTRATION RATE 86.4 (>39); POTASSIUM SERUM 4.2 MMOL/L (3.5-5.1); SODIUM LEVEL 140.0 MMOL/L (136-145)
== END ==
LOC: M LAB 13:21
PROVIDERS: ATTEND Internal Medicine Cardiovascular Disease
DX: A49.01 Methicillin susceptible Staphylococcus aureus infection, unspecified site (principal); I33.0 Acute and subacute infective endocarditis

== ENCOUNTER 2025-01-06 10:08 | Outpatient (CLI) | payer MEDICARE, BC ==
[2025-01-06 10:44] VITALS: BP 174/97; O2SAT 94
[2025-01-06 11:10] LABS: PLATELET COUNT, AUTOMATED 214 10^3/uL (150-450)
[2025-01-06 11:35] LABS: ERYTHROCYTE SEDIMENTATION RATE 31 mm/hr (0-30)
[2025-01-06 11:58] LABS: ALT/SGPT 16 U/L (7.0-40); AST/SGOT 37 U/L (<34); C REACTIVE PROTEIN QUANTITATIV 0.85 MG/DL (<1.0); CALCIUM LEVEL 9.2 MG/DL (8.3-10.6); CARBON DIOXIDE LEVEL 24 MMOL/L (20-31); CHLORIDE LEVEL 103 MMOL/L (98-107); CREATININE FOR GFR 0.70 MG/DL (0.55-1.30); GLOMERULAR FILTRATION RATE > 90.0 (>39); POTASSIUM SERUM 4.0 MMOL/L (3.5-5.1); SODIUM LEVEL 140 MMOL/L (136-145)
== END 2025-01-06 10:45 | disposition home or self-care (01) ==
LOC: M INFU 10:08
PROVIDERS: ATTEND Internal Medicine Cardiovascular Disease
DX: A49.02 Methicillin resistant Staphylococcus aureus infection, unspecified site (principal)

== ENCOUNTER 2025-01-11 11:04 | Outpatient (CLI) | payer MEDICARE, BC ==
[2025-01-11 11:33] VITALS: BP 138/93; O2SAT 96
== END 2025-01-11 11:35 | disposition home or self-care (01) ==
LOC: M INFU 11:04
PROVIDERS: ATTEND Internal Medicine Infectious Disease
DX: Z45.2 Encounter for adjustment and management of vascular access device (principal); Z88.2 Allergy status to sulfonamides; Z88.8 Allergy status to other drugs, medicaments and biological substances; Z91.018 Allergy to other foods

== ENCOUNTER → 2025-01-15 | Outpatient (CLI) | payer MEDICARE, BC | LOC: M LAB 09:37 | PROVIDERS: ATTEND Internal Medicine Infectious Disease | DX: I33.0 Acute and subacute infective endocarditis (principal) ==

== ENCOUNTER → 2025-01-15 | Outpatient (REF) | payer MEDICARE, BC | LOC: M SFHCADAM 08:50 | PROVIDERS: ATTEND Internal Medicine Infectious Disease | DX: Z53.9 Procedure and treatment not carried out, unspecified reason (principal) ==

== ENCOUNTER → 2025-03-22 | Outpatient (CLI) | payer MEDICARE, BC | LOC: M PLAIMG 11:21 | PROVIDERS: ATTEND Physician Assistant | DX: I71.21 Aneurysm of the ascending aorta, without rupture (principal); F17.211 Nicotine dependence, cigarettes, in remission ==

== ENCOUNTER → 2025-03-31 | Outpatient (REF) | payer MEDICARE, BC ==
[2025-03-31 14:26] LABS: ALT/SGPT 42.0 U/L (7.0-40); AST/SGOT 37.0 U/L (<34); CALCIUM LEVEL 10.2 MG/DL (8.3-10.6); CARBON DIOXIDE LEVEL 28.0 MMOL/L (20-31); CHLORIDE LEVEL 99.0 MMOL/L (98-107); CREATININE FOR GFR 0.79 MG/DL (0.55-1.30); GLOMERULAR FILTRATION RATE 79.9 (>39); MAGNESIUM LEVEL 2.1 MG/DL (1.8-2.4); POTASSIUM SERUM 4.9 MMOL/L (3.5-5.1); SODIUM LEVEL 139.0 MMOL/L (136-145)
[2025-03-31 14:27] LABS: PLATELET COUNT, AUTOMATED 309 10^3/uL (150-450)
[2025-03-31 15:36] LABS: ESTIMATED AVERAGE GLUCOSE 120.0 MG/DL (60-110)
== END ==
LOC: M SFHCADAM 10:33
PROVIDERS: ATTEND Physician Assistant
DX: I71.21 Aneurysm of the ascending aorta, without rupture (principal); E78.00 Pure hypercholesterolemia, unspecified; Z95.2 Presence of prosthetic heart valve; F17.211 Nicotine dependence, cigarettes, in remission; E66.01 Morbid (severe) obesity due to excess calories; Z68.35 Body mass index [BMI] 35.0-35.9, adult; E66.812 Obesity, class 2; Z12.31 Encounter for screening mammogram for malignant neoplasm of breast; Z13.820 Encounter for screening for osteoporosis; Z79.899 Other long term (current) drug therapy